=== PATIENT | male | born 1955 | race Caucasian/White ===

== ENCOUNTER 2016-07-03 14:45 | Emergency (ER) | payer OTHER ==
[~2016-07-03] VITALS: Ht 165.1 cm; Wt 89.0 kg
[~2016-07-03 14:45] MED LIST: COLACE; FINA5TAB4 PO; GABA300C16 PO; GLIP5TAB13 PO; JANUMET PO; LISI40TA9 PO; LOVA10TA63 PO; MELOXICAN; NAPROXEN PO; NORVASC PO; OMEP20CA16 PO; RANITIDINE; SENN8.6C3 PO; SITA1TAB7 PO; TIZA4TAB PO; TRAM-40 PO
[2016-07-03 14:48] VITALS: Ht 165.1 cm; Wt 89.0 kg
[2016-07-03] MEDS ORDERED: KETOROLAC 60 MG INJ IM STA (15:56)
[2016-07-03] MEDS ORDERED: HYDROCODONE/APAP (10/325) TAB PO ONE (16:00)
[2016-07-03 16:20] LABS: URINE BLOOD (Dip) POC Negative (NEGATIVE)
[2016-07-03] MEDS ORDERED: TRAM50TA2 PO (16:34)
[2016-07-03] MEDS ORDERED: DIAZ-90 PO (16:34)
--- NOTE | 2016-07-03 16:38 | ERA ---
ER Documentation Chief Complaint Date/Time DATE: 07/03/16 TIME: 16:36 Chief Complaint BACK PAIN, ON MEDS, TODAY FELT LEFT BUTTOCKS MASS? HPI This 60-year-old male complains of low back pain. He has a history of chronic low back pain but is no some swelling in the left lower back and buttock for the last few days. Denies any new trauma, urinary complaints or hematuria. Denies any fevers or weakness or bowel or bladder incontinence. ROS All systems reviewed and are negative except as per history of present illness. Medications Home Meds Active Scripts Tramadol HCl (Tramadol HCl) 50 Mg Tablet, 50 MG PO Q4 Y for PAIN, #20 TAB Prov:TEVIN BRAY MD 07/03/16 Diazepam* (Valium*) 5 Mg Tablet, 5 MG PO Q8, #15 TAB Prov:TEVIN BRAY MD 07/03/16 Reported Medications Tizanidine Hcl* (Tizanidine Hcl*) 4 Mg Tablet, 4 MG PO Q6H Y for SPASTICITY, TAB 01/22/16 [Meloxican] No Conflict Check 11/14/15 [Colace] No Conflict Check 11/14/15 [Ranitidine] No Conflict Check 11/14/15 [Naproxen] No Conflict Check, PO 11/14/15 [Janumet] No Conflict Check, PO 11/14/15 [Norvasc] No Conflict Check, PO 11/14/15 Sennosides* (Senna*) 8.6 Mg Capsule, 1 CAP PO BID, CAP 05/29/15 Tramadol Hcl* (Ultram*) 50 Mg Tablet, 50 MG PO BID Y for PAIN, TAB 05/29/15 Omeprazole* (Omeprazole*) 20 Mg Capsule.dr, 20 MG PO DAILY, CAP 03/19/14 Lovastatin* (Lovastatin*) 10 Mg Tablet, 10 MG PO HS, TAB 03/19/14 Gabapentin* (Gabapentin*) 300 Mg Capsule, 300 MG PO BID, CAP 03/19/14 Finasteride* (Finasteride*) 5 Mg Tablet, 5 MG PO DAILY, TAB 03/19/14 Sitagliptin Phos-Metformin Hcl (Janumet) 50-1,000 Mg Tablet, 1 TAB PO BID, TAB 03/19/14 Glipizide* (Glipizide*) 5 Mg Tablet, 5 MG PO BID, TAB 03/19/14 Lisinopril* (Lisinopril*) 40 Mg Tablet, 40 MG PO DAILY, TAB 03/19/14 Allergies Allergies: Coded Allergies: allopurinol (Verified Allergy, Unknown, ITCHING, NAUSEA, 01/22/16) PMhx/Soc History of Surgery: Yes Anesthesia Reaction: No Hx Neurological Disorder: No Hx Respiratory Disorders: No Hx Cardiac Disorders: Yes (HTN, HLP) Hx Psychiatric Problems: No Hx Miscellaneous Medical Probl: No Hx Alcohol Use: No Hx Substance Use: No Hx Tobacco Use: No Physical Exam Vitals Vital Signs Date Time Temp Pulse Resp B/P Pulse Ox O2 Delivery O2 Flow Rate FiO2 07/03/16 14:48 98.1 79 18 150/79 99 Physical Exam Const: [] Alert, [id number]. Head: Atraumatic Eyes: Normal Conjunctiva ENT: Normal External Ears, Nose and Mouth. Neck: Full range of motion..~ No meningismus. Resp: Clear to auscultation bilaterally Cardio: Regular rate and rhythm, no murmurs Abd: Soft, non tender, non distended. Normal bowel sounds Skin: No petechiae or rashes Back: No midline or flank tenderness but there is some tenderness extending from approximately L3 down to the left buttock with some mild swelling. There is no erythema or dominant masses. There is no fluctuance. There is no midline tenderness. Ext: No cyanosis, or edema Neur: Awake and alert Psych: Normal Mood and Affect Results 24 hrs Laboratory Tests Test 07/03/16 16:22 Bedside Urine Blood Negative Bedside Urine Glucose (UA) 0.25% Bedside Urine Ketones (LAB) Trace Bedside Urine Leukocyte Esterase (L Negative Bedside Urine Nitrite (LAB) Negative Bedside Urine Protein (LAB) 2+ Bedside Urine pH (LAB) 5.0 Current Medications Medications (Trade) Dose Ordered Sig/Hasmukh Route PRN Reason Start Time Stop Time Status Last Admin Dose Admin Ketorolac Tromethamine (Toradol) 60 mg ONCE STAT IM 07/03/16 15:56 07/03/16 15:57 DC 07/03/16 16:06 Acetaminophen/ Hydrocodone Bitart ([place] (10/325)) 1 tab ONCE ONCE PO 07/03/16 16:00 2/1/17 16:01 DC 07/03/16 16:05 Procedures/MDM Urine shows glucose but no hemoglobin leukocytes. Patient presents with signs and symptoms of an acute left lower back muscle spasm in the setting of chronic back pain. He was given Toradol 60 mg IM [place] 10 mg by mouth. Patient will be treated with tramadol and Valium instructions for back exercises at home. Patient was advised to return for weakness, fevers, vomiting, new or worsening symptoms or primary care doctor as directed. There is no evidence to suggest bacterial infection such as epidural abscess, aortic disease, acute abdomen, genitourinary etiology. Departure Diagnosis: Primary Impression: Back pain Qualified Code: M54.5 - Acute left-sided low back pain without sciatica Condition: Stable Patient Instructions: Back Exercises, Lumbar, Back Pain (Acute Or Chronic), Muscle Spasm Additional Instructions: Pain and swelling appear to be due to spasm. Recommend stretching at home and follow-up with primary doctor or for new or worsening symptoms TEVIN BRAY MD Jul 03, 2016 16:38
== END 2016-07-03 16:59 | disposition home or self-care (01) ==
LOC: FTE 14:45
DX: M54.5 Low back pain (principal); I10 Essential (primary) hypertension; E11.9 Type 2 diabetes mellitus without complications; Z79.84 Long term (current) use of oral hypoglycemic drugs
CPT/HCPCS: 81003; 96372; J1885; Z7502; Z7610

== ENCOUNTER 2016-10-15 05:10 | Day surgery (SDC) | payer OTHER ==
--- NOTE | 2016-10-14 20:55 | PREOPHP ---
DATE OF ADMISSION: 10/15/2016 HISTORY OF PRESENT ILLNESS: This 60-year-old patient is admitted for repositioning of an intraocula r lens or exchange of existing intraocular lens with an alternate lens implant. This patient previo usly underwent cataract surgery 3 years ago and despite satisfactory vision has been bothered by dis tortion of vision following the surgery. 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 The patient also has a history of proliferati ve diabetic retinopathy, previously treated with retinal laser therapy. Despite the above, the meryl ent continues to complain of distortion of vision in the left eye and wants to have improvement of v ision. The patient's systemic history is positive for hypertension, non-insulin dependent diabetes mellitus, neuropathies. CURRENT MEDICATIONS: Include: 1. Glipizide. 2. Metformin. 3. Lisinopril. 4. Amlodipine. 5. Onglyza. 6. Lovastatin. ALLERGIES: THERE ARE NO KNOWN ALLERGIES. PHYSICAL EXAMINATION: The visual acuity with best correction is finger counting in the right eye an d 20/400 in the left eye. Slit lamp examination reveals a posterior chamber intraocular lens in the left eye whose optic appears to be slightly tilted. It is placed anterior to the posterior capsule whose central zone has been compromised. Intraocular tension is 18 mmHg. Examination of the retin a in the left eye appears quiet with no evidence of macular edema or active lesion. DIAGNOSIS: Subluxated lens implant, left eye. PLAN: Repositioning of lens implant or exchange of lens implant, left eye. 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 The patient understands this and agrees to proceed with surgery. Dictated By: ANAMARIA BELLO/KAVITHA Conf#: [id number] DID#: [id number]
[~2016-10-15] VITALS: Ht 172.7 cm; Wt 95.2 kg
[~2016-10-15 05:10] MED LIST changes: +DIAZ-90 PO; +TRAM50TA2 PO
[2016-10-15] MEDS ORDERED: CYCLOPENTOLATE/PHENYLEPH 2 ML OPH OPER SCH (05:30)
[2016-10-15] MEDS ORDERED: CIPROFLOXACIN 0.3% 2.5 ML OPH OPER SCH (05:30)
[2016-10-15] MEDS ORDERED: DICLOFENAC 0.1% 2.5 ML OPH OPER SCH (05:30)
[2016-10-15] MEDS ORDERED: TROPICAMIDE 1% 2 ML OPH OPER SCH (05:30)
[2016-10-15 06:00] VITALS: BP 134/82; PULSE 61; RESP 18; Ht 172.7 cm; Wt 95.2 kg
[2016-10-15] MEDS ORDERED: AMLO-147 PO (06:18)
[2016-10-15] MEDS ORDERED: MELO7.5O PO (06:18)
[2016-10-15] MEDS ORDERED: RANI150T9 PO (06:18)
[2016-10-15] MEDS ORDERED: GENTAMICIN 80 MG INJ ONE (06:24)
[2016-10-15] MEDS ORDERED: LIDOCAINE 4% (MPF) 5 ML INJ ONE (06:24)
[2016-10-15] MEDS ORDERED: CARBACHOL 0.01% 1.5 ML OPH INJ ONE (06:24)
[2016-10-15] MEDS ORDERED: CEFAZOLIN 1 GM INJ ONE (06:24)
[2016-10-15] MEDS ORDERED: EPINEPHrine 1 MG INJ ONE (06:25)
[2016-10-15] MEDS ORDERED: HYALURONATE/CHONDROITIN 1ML OPH INJ ONE (06:25)
[2016-10-15] MEDS ORDERED: SITA1TAB5 PO (06:28)
[2016-10-15] MEDS ORDERED: DEXAMETHASONE 4 MG/ML 1 ML INJ ONE (07:10)
[2016-10-15] MEDS ORDERED: CARBACHOL 0.01% 1.5 ML OPH INJ IO ONE (07:25)
[2016-10-15] MEDS ORDERED: CEFAZOLIN 1 GM INJ INJ ONE (07:30)
[2016-10-15] MEDS ORDERED: HYALURONATE/CHONDROITIN 1ML OPH INJ IO ONE (07:30)
[2016-10-15] MEDS ORDERED: PROPOFOL 20 ML ONE (07:30)
[2016-10-15] MEDS ORDERED: DEXAMETHASONE 4 MG/ML 1 ML INJ INJ ONE (07:30)
[2016-10-15] MEDS ORDERED: MIDAZOLAM 1 MG/ML 2 ML INJ ONE (07:52)
[2016-10-15] MEDS ORDERED: ONDANSETRON 4 MG INJ IV PRN (08:00)
[2016-10-15 08:16] VITALS: BP 145/74; RESP 14
[2016-10-15 08:21] VITALS: BP 132/69; PULSE 62; RESP 13
[2016-10-15] MEDS: HYDROmorphONE (0.2 MG/ML) 10ML SYG IV PRN ×2 (08:24→08:29)
[2016-10-15 08:26] VITALS: BP 134/73; PULSE 68; RESP 19
[2016-10-15 08:31] VITALS: BP 134/71; PULSE 68; RESP 17
[2016-10-15 08:43] VITALS: BP 137/70; PULSE 65; RESP 18
[2016-10-15] MEDS ORDERED: FENTAnyl 50 MCG/ML VIAL ONE ×2 (08:54→09:18)
[2016-10-15] MEDS ORDERED: hydrALAzine 20 MG INJ ONE (09:32)
--- NOTE | 2016-10-15 10:53 | OPR ---
DATE OF OPERATION: 10/15/2016 PREOPERATIVE DIAGNOSIS: Subluxated lens implant, left eye. POSTOPERATIVE DIAGNOSIS: Subluxated lens implant, left eye. PROCEDURES: 1. Attempted reposition of posterior chamber intraocular lens, left eye. 2. Intraocular lens exchange for an anterior chamber intraocular lens, left eye. 3. Anterior vitrectomy, left eye. SURGEON: Anamaria Berry MD ANESTHESIOLOGIST: Eamon York DO DESCRIPTION OF PROCEDURE: The patient was brought to the operating room on an eye gurney. Positioned appropriately on the gurney and attached to electrocardiogram monitoring, given oxygen via nasal cannula. After intravenous sedation was administered, the patient received local anesthesia using lidocaine 4% given in lid block and retrobulbar injection. The patient was then prepped and draped in the usual sterile manner and a speculum was inserted between the lids of the left eye. Two paracentesis incisions were made in the 11 and 1 o'clock positions using a Superblade and some DisCoVisc was injected into the anterior chamber. An attempt was made using a Sinskey hook to rotate and reposition the intraocular lens so that the optic would be centered within the pupillary aperture. During this time, it was noted that the lens haptics had fibrosed to the capsular folds. Despite this, the lens was freed and, while attempting to reposition, it was noted that one of the haptics appeared to be kinked, not allowing it to expand to its full extent and explaining the reason why the lens had subluxated superiorly over the course of 3 years subsequent to the initial surgery. At this point, it was decided to remove the lens and replace it with an anterior chamber lens. A 3.0 mm keratome was used to enter the anterior chamber through clear cornea at the 12 o'clock position and then, using a curved blade, an outline was made in adjacent cornea both laterally and medially to extend the opening of the wound. Using curved corneal scissors, the wound was extended to approximately 7 mm. At this time, it was noted that there was some vitreous in the anterior chamber, which appeared to have come from the prior central capsulotomy at a time subsequent to the initial surgery. A limited anterior vitrectomy was performed using mechanical vitrectomy instrument until no formed vitreous was present in the anterior chamber or at the lips of the wound. Following this, the posterior chamber lens was explanted. After this had been completed and Miostat had constricted the pupil, Vannas scissors were used to create a peripheral iridectomy superiorly. Additional DisCoVisc was then injected into the anterior chamber as it was noted that there was some scleral collapse present superiorly. With the DisCoVisc, the chamber reformed appropriately. A lens glide was then placed across the surface of the iris to the inferior anterior chamber angle. A 19.5 diopter anterior chamber lens (Bausch and Lomb model L122UV) was then inserted anterior to the lens glide and the lens glide was removed. The trailing haptic was then tucked beneath the scleral shelf. Three interrupted 10-0 nylon sutures were placed across the wound and were tied with the ends cut short. Following this, additional DisCoVisc was injected into the anterior chamber and then, using a Sinskey hook, the lens was rotated so that the haptics were oriented in the horizontal meridian away from the wound. The haptics placed well, and there was no distortion to the round pupil after the lens had been rotated. Two additional 10-0 nylon sutures were placed; 1 of them was tied and the ends were cut short and then the DisCoVisc was from the anterior chamber. The final suture was then tied, the ends cut short and the knots of all the sutures were buried either on the corneal or on the scleral side of the wound. At the end of the procedure, it was noted that the wound was intact, the anterior chamber was deep, the lens implant appeared to be appropriately positioned, and the pupil was not distorted. The speculum was then removed and then 0.5 mL of Ancef and 0.5 mL of dexamethasone were injected into the sub- [place] space. Vigamox drops were placed on the surface of the eye and the eye was patched. The patient then left the operating room in satisfactory condition. Dictated By: ANAMARIA BELLO/KAVITHA Conf#: [id number] DID#: [id number] BALA
== END 2016-10-15 09:04 | disposition home or self-care (01) ==
LOC: SDS 05:10
PROVIDERS: ATTEND Ophthalmology
DX: H35.051 Retinal neovascularization, unspecified, right eye (principal); T85.22XA Displacement of intraocular lens, initial encounter; Y83.8 Other surgical procedures as the cause of abnormal reaction of the patient, or of later complication, without mention of misadventure at the time of the procedure; Y92.89 Other specified places as the place of occurrence of the external cause; E11.9 Type 2 diabetes mellitus without complications; I10 Essential (primary) hypertension; E78.5 Hyperlipidemia, unspecified; E66.9 Obesity, unspecified; Z68.31 Body mass index [BMI] 31.0-31.9, adult
CPT/HCPCS: 66986; 67005; 82962; J0171; J0690; J1100; J1170; J1580; J2250; V2630; Z7512; Z7610; J0360; J3010

== ENCOUNTER 2016-11-06 05:10 | Inpatient (IN) | payer OTHER ==
[2016-11-05 14:38] VITALS: BMI 31.7
[2016-11-06] VITALS (17 sets, daily range): BP systolic 118–174; BP diastolic 57–87; PULSE 63–88; RESP 12–20; Ht 172.7 cm; Wt 92.8 kg
[~2016-11-06] VITALS: Ht 172.7 cm; Wt 92.8 kg
[~2016-11-06 05:10] MED LIST changes: +AMLO-147 PO; -JANUMET PO; +MELO7.5O PO; -MELOXICAN; -NAPROXEN PO; -NORVASC PO; +RANI150T9 PO; -RANITIDINE; +SITA1TAB5 PO; -TRAM-40 PO
[2016-11-06] MEDS ORDERED: CEFAZOLIN 2 GM/50 ML (PMX) 50 ML IVPB ONE (06:00)
[2016-11-06] MEDS ORDERED: CPR3OO3.5 BOTH EYES (06:46)
[2016-11-06] MEDS ORDERED: [UNRECOGNIZED DRUG - CODE] BOTH EYES (06:46)
[2016-11-06] MEDS ORDERED: ALP2OP10 BOTH EYES (06:46)
[2016-11-06] MEDS ORDERED: DICL2.5D11 BOTH EYES (06:46)
[2016-11-06] MEDS ORDERED: CEFAZOLIN 1 GM INJ ONE ×2 (07:00→07:02)
[2016-11-06] MEDS ORDERED: ROCURONIUM 50 MG INJ ONE (07:00)
[2016-11-06] MEDS ORDERED: LIDOCAINE 2% (SDV) 5 ML INJ ONE (07:00)
[2016-11-06] MEDS ORDERED: FENTAnyl 250MCG INJ ONE (07:00)
[2016-11-06] MEDS ORDERED: HYDROmorphONE 2 MG/ML SYG ONE (07:00)
[2016-11-06] MEDS ORDERED: PROPOFOL 200 MG INJ ONE (07:00)
[2016-11-06] MEDS ORDERED: GELATIN SIZE 100 SPONGE ONE (07:02)
[2016-11-06] MEDS ORDERED: BUPIVACAINE 0.25% (MPF) 30 ML INJ ONE ×2 (07:02→10:48)
[2016-11-06] MEDS ORDERED: BUPIVACAINE 0.25%/EPI (SDV) 30 ML INJ ONE (07:02)
[2016-11-06] MEDS ORDERED: THROMBIN 5000 UNIT VIAL ONE (07:03)
[2016-11-06] MEDS ORDERED: CA CHLORIDE 10% 10 ML SYRINGE ONE (07:03)
--- NOTE | 2016-11-06 07:17 | HPN ---
Date/Time of Note Date/Time of Note DATE: 11/06/16 TIME: 07:17 Interval H&P Admission Note Pt. seen H&P reviewed: No system changes LÁZARO HUNTLEY MD Nov 06, 2016 07:17
[2016-11-06] MEDS ORDERED: HEPARIN 1000 UNITS/ML 10 ML INJ ONE ×2 (07:22→07:52)
[2016-11-06] MEDS ORDERED: NALOXONE (0.4 MG/ML) INJ IV PRN (07:30)
[2016-11-06] MEDS ORDERED: HYDROCODONE/APAP (5/325) TAB PO PRN (07:30)
[2016-11-06] MEDS ORDERED: HYDROmorphONE 1 MG/ML SYG IV PRN (07:30)
[2016-11-06] MEDS ORDERED: HYDROmorphONE 0.2 MG/ML PCA IV SCH (07:30)
[2016-11-06] MEDS ORDERED: ACETAMINOPHEN 325 MG TAB PO PRN (07:30)
[2016-11-06] MEDS ORDERED: CEPASTAT LOZENGE MT PRN (07:30)
[2016-11-06] MEDS ORDERED: MAGNESIUM HYDROXIDE 30ML CUP PO PRN (07:30)
[2016-11-06] MEDS ORDERED: PROCHLORPERAZINE 10 MG INJ IV PRN (07:30)
[2016-11-06] MEDS ORDERED: DIPHENHYDRAMINE 50 MG INJ IV PRN ×2 (07:30→12:00)
[2016-11-06] MEDS ORDERED: ONDANSETRON 4 MG INJ IV PRN ×2 (07:30→12:00)
[2016-11-06] MEDS ORDERED: GLUCAGON 1 MG INJ IM PRN (08:30)
[2016-11-06] MEDS ORDERED: DEXTROSE 50% 50 ML SYRINGE IV PRN ×2 (08:30)
[2016-11-06] MEDS ORDERED: GLUCOSE GEL 15 GRAM TUBE PO PRN ×2 (08:30)
[2016-11-06] MEDS ORDERED: GLUCOSE GEL 15 GRAM TUBE BUCCAL PRN (08:30)
[2016-11-06] MEDS ORDERED: PREDNISOLONE/SULFACETAMIDE 5 ML OPH BOTH EYES SCH ×2 (09:00→17:00)
[2016-11-06] MEDS ORDERED: GABAPENTIN 300 MG CAP PO SCH (09:00)
[2016-11-06] MEDS ORDERED: DOCUSATE SODIUM 100 MG CAP PO SCH (09:00)
[2016-11-06] MEDS ORDERED: LISINOPRIL 20 MG TAB PO SCH (09:00)
[2016-11-06] MEDS ORDERED: CEFAZOLIN 1 GM/50 ML (PMX) 50 ML IVPB SCH (09:00)
[2016-11-06] MEDS ORDERED: 1/2 NS + KCL 20 MEQ 1,000 ML IV SCH (09:00)
[2016-11-06] MEDS ORDERED: SENNA TAB PO SCH (09:00)
[2016-11-06] MEDS ORDERED: LINAGLIPTIN 5 MG TABLET PO SCH (09:00)
[2016-11-06] MEDS ORDERED: CIPROFLOXACIN 0.3% 3.5 GM OPH OINT BOTH EYES SCH ×2 (09:00→17:00)
[2016-11-06] MEDS ORDERED: FINASTERIDE 5 MG TAB PO SCH (09:00)
[2016-11-06] MEDS ORDERED: AMLODIPINE 10 MG TAB PO SCH (09:00)
[2016-11-06] MEDS ORDERED: BRIMONIDINE 0.2% 5 ML BTL BOTH EYES SCH ×2 (09:00→21:00)
[2016-11-06] MEDS ORDERED: FENTAnyl 50 MCG/ML VIAL ONE (10:35)
[2016-11-06] MEDS ORDERED: BUPIVACAINE 0.25%/EPI (SDV) 30 ML INJ INJ ONE (11:19)
[2016-11-06] MEDS ORDERED: BUPIVACAINE 0.25% (MPF) 30 ML INJ INJ ONE (11:20)
[2016-11-06] MEDS ORDERED: hydrALAzine 20 MG INJ IV PRN (12:00)
[2016-11-06] MEDS ORDERED: MEPERIDINE 25 MG INJ IV PRN (12:00)
[2016-11-06] MEDS ORDERED: INSULIN ASPART [NOVOLOG] 3 ML PEN SC ONE (12:00)
[2016-11-06] MEDS ORDERED: HYDROmorphONE (0.2 MG/ML) 10ML SYG IV PRN ×3 (12:00)
[2016-11-06] MEDS ORDERED: LABETALOL HCL 20MG INJ IV PRN (12:00)
[2016-11-06] MEDS ORDERED: FENTAnyl 50 MCG/ML VIAL IV PRN ×2 (12:00)
[2016-11-06] MEDS ORDERED: EPHEDrine SULFATE 50 MG/5 ML SYG IV PRN (12:00)
[2016-11-06] MEDS: FENTAnyl 50 MCG/ML VIAL IV PRN ×2 (12:04→12:19)
--- NOTE | 2016-11-06 13:18 | OPR ---
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 POSTOPERATIVE DIAGNOSIS: L5 to S1 spondylolysis with listhesis grade I with instability and lower e xtremity radiculopathy secondary to nerve root compression. PROCEDURE PERFORMED: 1. L5 to S1 placement of bilateral pedicle screws under minimally invasive fashion with biplanar fl uoroscopy. 2. Decompression above and beyond the need for fusion for the purpose of decompressing exiting and traversing nerve roots at the right L5 to S1 level with complete facetectomy. 3. Complete removal of disk within the L5 to S1 disk space. 4. Preparation of endplates. 5. Placement of interbody biomechanical device in the form of a Benvenue 13 mm lordotic cage. 6. Decompression of exiting L5 and traversing S1 nerve root. 7. Placement of bone graft within the disk space with the interbody cage. 8. Platelet rich plasma achieved from bone marrow aspiration. 9. Posterolateral bone grafting at the L5 to S1 levels bilaterally after high-speed bur decorticati on of the transverse processes. 10. Use of intraoperative fluoroscopy for localization and placement of instrumentation. 11. Use of intraoperative neuromonitoring for 4 hours during the entire surgical procedure with SSE Ps, MEPs and EMGs. 12. Use of intraoperative microscope for microdissection. 13. Placement of epidural catheter with injection of 4 mL of 0.25% Marcaine and 100 mcg of fentanyl for postoperative analgesia and removal of epidural catheter. 14. Placement of rods across the L5 to S1 pedicle screws and tightened down with a torque wrench. 15. Subcutaneous injection of 0.25% Marcaine for postop analgesia. 16. Use of Cell Saver intraoperatively for collection of blood. 17. Cosmetic wound closure of two 2 cm incisions. SURGEON: Anatoly Rainey MD DIET TECH: None. FINDINGS: At the start of surgical procedure, it was noted that the patient had nerve root signals with deficit at the left L5 down 70%, right L5 down 20%, left S1 down 30%, and returned back to norm al symmetric to contralateral side at the conclusion of the procedure. BLOOD USAGE: None. IMPLANTS: Benvenue Autumn cage 13 mm lordotic, OsteoSponge bone graft, RTI pedicle screws and Fibergr aft bone graft, [facility]. ESTIMATED BLOOD LOSS: 100 mL. DRAINS: None. SPECIMENS: L5 to S1 disk material. COMPLICATIONS: None. TYPE OF ANESTHESIA: General. ANESTHESIOLOGIST: Dr. Cabrales. PREOPERATIVE HISTORY: The patient is a 60-year-old male with a history of diabetes with significant findings of spondylolysis with listhesis at L5 to S1, grade I, with significant nerve root compress ion and bilateral lower extremity radiculopathy with disk space degeneration, consented for surgery as stated above secondary to failure of conservative management. The patient was indicated and disc ussed all risks, benefits and alternatives as well as pre- and postoperative rehabilitation protocol . The patient understood the plan and consented. OPERATION DETAIL: The patient brought to the operating room, placed under anesthesia by Dr. Samra pineda d given 2 grams of Ancef, turned prone onto the Rolando frame and all bony prominences were appropria tely padded. Lumbar spine prepped and draped in the usual sterile fashion. Biplanar fluoroscopy br ought into the field for placement of pedicle screw, in the technique of placing the Jamshidi needle , advancing the wire, tapping over the wire and then placing the screw over the wire and removing th e wire at the conclusion. This was done bilaterally; however, on the right side we stopped at the stage of placing the wires and placed the pedicle screws on the left side only measuring 6.5 x 40 at the S1 level and 6.5 x 45 at the L5 level and started with our focussing. This was all done under fluoroscopy, verified proper position and then focused our direction to placing the interbody cage. Through the right side where the wires were still placed, between those 2 wires we developed a kathryn edian incision into the level where the lamina of the L5 to S1 level, and then started with our pro cedure to remove the complete facetectomy and decompression of exiting L5 and traversing S1 nerve ro ots. We identified the exiting and traversing nerve roots and gently retracted to protect them and started with our complete diskectomy at the L5 to S1 level, sent off for pathology. We prepared the endplates and sized a 13 mm lordotic Autumn cage. This was then deployed into the disk space under f luoroscopy, verified proper position, then filled with Fibergraft bone graft and also stuffed latera lly with OsteoSponge. Once concluded, we placed the pedicle screws similar to the sizes on the contralateral side, and the n checked with neuromonitoring for pedicle screw stimulation, showing no impingement on any traversi ng nerve roots. Once concluded with the procedure placing the pedicle screws and interbody cage, we placed bilateral posterolateral bone graft after high-speed bur decortication of the transverse process. At the conclusion, copious irrigation was performed and an epidural catheter was inserted with epidu ral pain medication. The epidural pain medication included 4 mL of 0.25% Marcaine and 100 mcg of fe ntanyl and removed. NuShield was placed over the open thecal sac for barrier protection of scar tissue and adhesions. At the conclusion of procedure, all instruments, sponge counts, and needles were correct. The patie nt was closed with one #1 Vicryl, 2-0 Vicryl, and a 4-0 Monocryl for subcuticular closure with [place] paulino and a clean and dry dressing. The patient will be admitted for postop pain control, physical therapy, antibiotics, and discharged to a nursing facility when appropriate. Dictated By: ANATOLY GAGE/KAVITHA Conf#: [id number] DID#: [id number]
--- NOTE | 2016-11-06 13:26 | OPPN ---
Date/Time of Note Date/Time of Note DATE: 11/06/16 TIME: 13:26 Post-Anesthesia Notes Post-Anesthesia Note Last documented vital signs Vital Signs Date Time Temp Pulse Resp B/P Pulse Ox O2 Delivery O2 Flow Rate FiO2 11/06/16 12:31 98.0 80 12 162/76 96 Nasal Cannula 2.0 Activity: WNL Respiratory function: WNL Cardiovascular function: WNL Mental status: Baseline Pain reasonably controlled: Yes Hydration appropriate: Yes Nausea/Vomiting absent: Yes MARCY ENRIQUE Nov 06, 2016 13:26
[2016-11-06] MEDS ORDERED: CEFAZOLIN 1 GM/50 ML (PMX) 50 ML IVPB ONE (14:48)
[2016-11-06] MEDS: CEFAZOLIN 1 GM/50 ML (PMX) 50 ML IVPB SCH ×2 (15:17→23:50)
--- NOTE | 2016-11-06 15:44 | RADRPT ---
PROCEDURE: XR fluoro guidance CLINICAL INDICATION: Lumbar fusion, L5-S1 TECHNIQUE: Intraoperative fluoroscopy provided. 3 images submitted. Total fluoro time 35.3 secon ds COMPARISON: Lumbar spine radiographs 11/16/2014 FINDINGS: Instruments demonstrated at the L5, S1 level. See operative report for details. IMPRESSION: Fluoroscopic guidance for L5-S1 fusion. RPTAT: VV .Ulysses Arenas MD, Date Time Electronically viewed and signed by .Ulysses Arenas MD, on 11/06/2016 15:43 .O/
--- NOTE | 2016-11-06 15:46 | RADRPT ---
PROCEDURE: XR fluoro guidance CLINICAL INDICATION: Lumbar fusion, L5-S1 TECHNIQUE: Intraoperative fluoroscopy provided. 4 images submitted. Total fluoro time 94.8 secon ds COMPARISON: Lumbar spine radiographs 11/16/2014 FINDINGS: Lower lumbar anterior spondylosis, grade 1 anterolisthesis and disk space narrowing at L5-S1 noted. Interbody and posterior fusion hardware at L5-S1 placed. See operative report for details. IMPRESSION: Fluoroscopic guidance for L5-S1 fusion. RPTAT: VV .Ulysses Arenas MD, Date Time Electronically viewed and signed by .Ulysses Arenas MD, on 11/06/2016 15:45 .O/
[2016-11-06] MEDS: CYCLOBENZAPRINE 10 MG TAB PO PRN (16:00)
[2016-11-06 16:28] LABS: ADD SCAN DIFF NO
--- NOTE | 2016-11-06 16:29 | CONS ---
DATE OF ADMISSION: 11/06/2016 DATE OF CONSULTATION: 11/06/2016 REQUESTING PHYSICIAN: Surgery team. CHIEF COMPLAINT: A 60-year-old male who is status post lumbar decompression surgery earlier today. HISTORY OF PRESENT ILLNESS: This is a 60-year-old male with past medical history of type 2 diabetes , diabetic retinopathy, cataracts, carpal tunnel syndrome, low back pain, high cholesterol, hyperten amena who had lumbar decompression surgery earlier today. He had been complaining of low back pain f or the last few weeks apparently. He presently denies any upper or lower GI bleeding, no fevers or chills. No nausea, vomiting. He was taken to the OR, earlier today after being diagnosed with L5-L 1 spondylosis with listhesis grade I with instability and lower extremity radiculopathy secondary ne rve root compression. Again, he underwent a decompression surgery earlier today. Denies chest pain or shortness of breath presently. He does complain of some neck stiffness; however. PAST MEDICAL HISTORY: As stated above. ALLERGIES: ALLOPURINOL. MEDICATIONS AT HOME: Include 1. Amlodipine 10 mg daily. 2. Lisinopril 40 mg b.i.d. 3. Lovastatin 10 mg at bedtime. 4. Tizanidine 4 mg at bedtime. 5. Gabapentin 300 mg q.i.d. 6. Meloxicam 15 mg daily. 7. Tramadol 50 mg q.4 p.r.n. 8. Alphagan drops in both eyes b.i.d. 9. Cipro ophthalmic drops in both eyes q.i.d. 10. Prednisolone sulfacetamide drops in both eyes q.i.d. 11. Ranitidine 150 mg b.i.d. 12. Senna 1 capsule daily. 13. Glipizide 10 mg b.i.d. 14. Janumet 1 tab p.o. b.i.d. 15. Finasteride 5 mg daily. PAST SURGICAL HISTORY: In addition to the surgery, he has had appendectomy in the past. He has had cataract surgery in the past, he has had carpal tunnel surgery on both wrists. He has had knee stacy micki in the past. SOCIAL HISTORY: He occasionally smokes every few months. Occasional alcohol use. Denies any IV dr ug abuse. FAMILY HISTORY: Noncontributory. PHYSICAL EXAMINATION: VITAL SIGNS: T-max 98.2, pulse 78 to 84, respirations 12 to 14, blood pressure is to 140 to 162 sys tolic over 57 to 76 diastolic, saturating at 96% on 2 liters nasal cannula. GENERAL: The patient is lying in bed in recovery room, answering questions appropriately complains of neck pain. Otherwise, no acute distress. HEENT: Pupils equal, round, react to light. Extraocular muscles intact. NECK: Supple, no thyromegaly. LUNGS: Clear to auscultation bilaterally. CARDIOVASCULAR: S1, S2 heard. No rubs or gallops. ABDOMEN: Soft, nontender, nondistended. Normal bowel sounds. No rebound or guarding. MUSCULOSKELETAL: No lower extremity edema bilaterally. NEUROLOGIC: No focal deficits. LABORATORIES: There is no new CBC or basic metabolic panel from today. ASSESSMENT AND PLAN: A 60-year-old male status post lumbar decompression surgery with a prior histo ry of type 2 diabetes with diabetic retinopathy, hypertension, high cholesterol, and cataracts. 1. Low back pain status post lumbar decompression, again, follow up postop recommendations from the surgery team including pain control medications, physical therapy, laboratory work and medications. 2. Type 2 diabetes. We will order for hemoglobin A1c and add sliding scale insulin. 3. History of hypertension. Continue current medications as ordered by primary team. 4. History of high cholesterol. Again, consider checking lipid panel. 5. History of cataracts. Continue all ophthalmic drops as ordered by primary team. 6. History of carpal tunnel syndrome. Continue to monitor for now. We will continue to follow the patient along with you. Dictated By: ETIENNE BOWEN Conf#: [id number] DID#: [id number]
[2016-11-06 16:30] LABS: BASOPHIL # 0.1 10^3/ul (0.0-0.1); BASOPHILS % 0.4 % (0.0-2.0); EOSINOPHILS % 0.2 % (0.0-7.0); HEMATOCRIT 34.5 % (42.0-52.0); HEMOGLOBIN 11.5 g/dl (14.0-18.0); LYMPHOCYTES # 1.1 10^3/ul (0.8-2.9); LYMPHOCYTES % 8.6 % (15.0-51.0); MEAN CORPUSCULAR HEMOGLOBIN 30.7 pg (29.0-33.0); MEAN CORPUSCULAR HGB CONC 33.3 g/dl (32.0-37.0); MEAN CORPUSCULAR VOLUME 92.2 fl (82.0-101.0); MEAN PLATELET VOLUME 10.9 fl (7.4-10.4); MONOCYTE # 0.5 10^3/ul (0.3-0.9); MONOCYTES % 4.1 % (0.0-11.0); NEUTROPHIL # 11.2 10^3/ul (1.6-7.5); NEUTROPHILS % 86.2 % (39.0-77.0); PLATELET COUNT 222 10^3/UL (140-415); RED BLOOD COUNT 3.74 10^6/ul (4.70-6.10); RED CELL DISTRIBUTION WIDTH 12.7 % (11.5-14.5)
[2016-11-06 16:47] LABS: CHOL/HDL RATIO 3.2 RATIO
[2016-11-06 17:46] LABS: CALCIUM 8.6 mg/dl (8.4-10.2); CREATININE 1.25 mg/dl (0.61-1.24)
[2016-11-06 17:48] LABS: POTASSIUM 6.1 mmol/L (3.5-5.1)
[2016-11-06] MEDS ORDERED: glipiZIDE 5 MG TAB PO SCH (17:55)
[2016-11-06] MEDS: metFORMIN 500 MG TAB PO SCH ×2 (19:00→19:02)
[2016-11-06] MEDS: INSULIN ASPART [NOVOLOG] 3 ML PEN SC SCH ×2 (19:00→21:30)
[2016-11-06] MEDS: GABAPENTIN 300 MG CAP PO SCH ×2 (19:01→21:00)
[2016-11-06] MEDS: DOCUSATE SODIUM 100 MG CAP PO SCH (20:28)
[2016-11-06] MEDS: PREDNISOLONE/SULFACETAMIDE 5 ML OPH LEFT EYE SCH ×2 (21:00→22:43)
[2016-11-06] MEDS: CIPROFLOXACIN 0.3% 3.5 GM OPH OINT LEFT EYE SCH ×2 (21:00→22:46)
[2016-11-06] MEDS: BRIMONIDINE 0.2% 5 ML BTL LEFT EYE SCH ×2 (21:00→22:41)
[2016-11-06] MEDS: TIZANIDINE 4 MG TAB PO SCH ×2 (21:00→22:40)
[2016-11-06] MEDS: LISINOPRIL 20 MG TAB PO SCH (21:25)
[2016-11-06] MEDS: SOD CHLORIDE 0.9% 1,000 ML IV SCH (22:51)
[2016-11-07] MEDS: ACCU-CHEK XX SCH (02:00)
[2016-11-07] MEDS: PANTOPRAZOLE (EC) 40 MG TAB PO SCH (05:29)
[2016-11-07 05:30] LABS: ADD SCAN DIFF NO
[2016-11-07 05:57] LABS: BASOPHILS % 0.4 % (0.0-2.0); EOSINOPHILS # 0.1 10^3/ul (0.0-0.5); EOSINOPHILS % 1.1 % (0.0-7.0); HEMATOCRIT 33.5 % (42.0-52.0); HEMOGLOBIN 10.7 g/dl (14.0-18.0); LYMPHOCYTES # 1.7 10^3/ul (0.8-2.9); LYMPHOCYTES % 20.4 % (15.0-51.0); MEAN CORPUSCULAR HEMOGLOBIN 29.8 pg (29.0-33.0); MEAN CORPUSCULAR HGB CONC 31.9 g/dl (32.0-37.0); MEAN CORPUSCULAR VOLUME 93.3 fl (82.0-101.0); MEAN PLATELET VOLUME 11.4 fl (7.4-10.4); MONOCYTE # 0.5 10^3/ul (0.3-0.9); MONOCYTES % 6.1 % (0.0-11.0); NEUTROPHIL # 5.8 10^3/ul (1.6-7.5); NEUTROPHILS % 71.4 % (39.0-77.0); PLATELET COUNT 198 10^3/UL (140-415); RED BLOOD COUNT 3.59 10^6/ul (4.70-6.10); RED CELL DISTRIBUTION WIDTH 12.8 % (11.5-14.5); WHITE BLOOD COUNT 8.2 10^3/ul (4.8-10.8)
[2016-11-07 06:16] LABS: CALCIUM 8.6 mg/dl (8.4-10.2); CREATININE 1.03 mg/dl (0.61-1.24); MAGNESIUM 1.6 mg/dl (1.7-2.5); POTASSIUM 4.8 mmol/L (3.5-5.1)
[2016-11-07 09:00] VITALS: BP 164/70; RESP 20
[2016-11-07] MEDS: CEFAZOLIN 1 GM/50 ML (PMX) 50 ML IVPB SCH (09:00)
[2016-11-07] MEDS: SENNA TAB PO SCH (09:00)
[2016-11-07] MEDS: CIPROFLOXACIN 0.3% 3.5 GM OPH OINT LEFT EYE SCH ×4 (09:00→20:50)
[2016-11-07] MEDS: BRIMONIDINE 0.2% 5 ML BTL LEFT EYE SCH ×4 (09:01→20:49)
[2016-11-07] MEDS: DOCUSATE SODIUM 100 MG CAP PO SCH ×2 (09:01→20:49)
[2016-11-07] MEDS: PREDNISOLONE/SULFACETAMIDE 5 ML OPH LEFT EYE SCH ×4 (09:01→20:49)
[2016-11-07] MEDS: FINASTERIDE 5 MG TAB PO SCH (09:02)
[2016-11-07] MEDS: AMLODIPINE 10 MG TAB PO SCH (09:02)
[2016-11-07] MEDS: GABAPENTIN 300 MG CAP PO SCH ×4 (09:03→20:49)
[2016-11-07] MEDS: INSULIN ASPART [NOVOLOG] 3 ML PEN SC SCH ×4 (09:16→20:51)
[2016-11-07] MEDS: LISINOPRIL 20 MG TAB PO SCH ×2 (09:18→20:49)
[2016-11-07] MEDS: LINAGLIPTIN 5 MG TABLET PO SCH (09:20)
[2016-11-07] MEDS: HYDROCODONE/APAP (5/325) TAB PO PRN ×2 (09:22→17:42)
[2016-11-07] MEDS ORDERED: HYDROCODONE/APAP (5/325) TAB PO ONE (09:30)
[2016-11-07] MEDS: CYCLOBENZAPRINE 10 MG TAB PO PRN ×2 (11:30→20:48)
[2016-11-07] MEDS: SOD CHLORIDE 0.9% 1,000 ML IV SCH (12:20)
--- NOTE | 2016-11-07 12:27 | CONS ---
Date/Time of Note Date/Time of Note DATE: 11/07/16 TIME: 12:23 Consult Date/Type/Reason Admit Date/Time Nov 06, 2016 at 05:10 Initial Consult Date Subjective Pt off [employer] pump now. Evaluated by PT team. Objective Vital Signs Date Time Temp Pulse Resp B/P Pulse Ox O2 Delivery O2 Flow Rate FiO2 11/07/16 09:00 98.1 96 20 164/70 93 11/06/16 14:36 Nasal Cannula 2.0 Intake and Output 11/06/16 11/06/16 11/07/16 15:00 23:00 07:00 Intake Total 1200 ml 585 ml 1375 ml Output Total 150 ml 2200 ml Balance 1050 ml 585 ml -825 ml Exam GENERAL: The patient is lying in bed in recovery room, answering questions appropriately. . HEENT: Pupils equal, round, react to light. Extraocular muscles intact. NECK: Supple, no thyromegaly. LUNGS: Clear to auscultation bilaterally. CARDIOVASCULAR: S1, S2 heard. No rubs or gallops. ABDOMEN: Soft, nontender, nondistended. Normal bowel sounds. No rebound or guarding. MUSCULOSKELETAL: No lower extremity edema bilaterally. NEUROLOGIC: No focal deficits. Results/Medications Result Diagram: 11/07/16 0446 11/07/16 0446 Results 24 hrs Laboratory Tests Test 11/06/16 13:56 11/06/16 16:19 11/06/16 18:15 11/06/16 18:22 Bedside Glucose 174 230 H White Blood Count 13.0 H Red Blood Count 3.74 L Hemoglobin 11.5 L Hematocrit 34.5 L Mean Corpuscular Volume 92.2 Mean Corpuscular Hemoglobin 30.7 Mean Corpuscular Hemoglobin Concent 33.3 Red Cell Distribution Width 12.7 Platelet Count 222 Mean Platelet Volume 10.9 H Neutrophils % 86.2 H Lymphocytes % 8.6 L Monocytes % 4.1 Eosinophils % 0.2 Basophils % 0.4 Nucleated Red Blood Cells % 0.0 Neutrophils # 11.2 H Lymphocytes # 1.1 Monocytes # 0.5 Eosinophils # 0.0 Basophils # 0.1 Nucleated Red Blood Cells # 0.0 Sodium Level 138 Potassium Level 6.1 *H 5.3 H Chloride Level 105 Carbon Dioxide Level 26 Anion Gap 13 Blood Urea Nitrogen 16 Creatinine 1.25 H Glucose Level 215 Hemoglobin A1c 9.8 H Calcium Level 8.6 Triglycerides Level 110 Cholesterol Level 124 LDL Cholesterol, Calculated 64 HDL Cholesterol 38 Cholesterol/HDL Ratio 3.2 Test 11/06/16 21:24 11/07/16 02:57 11/07/16 04:46 11/07/16 09:08 Bedside Glucose 188 154 147 White Blood Count 8.2 # Red Blood Count 3.59 L Hemoglobin 10.7 L Hematocrit 33.5 L Mean Corpuscular Volume 93.3 Mean Corpuscular Hemoglobin 29.8 Mean Corpuscular Hemoglobin Concent 31.9 L Red Cell Distribution Width 12.8 Platelet Count 198 Mean Platelet Volume 11.4 H Neutrophils % 71.4 Lymphocytes % 20.4 Monocytes % 6.1 Eosinophils % 1.1 Basophils % 0.4 Nucleated Red Blood Cells % 0.0 Neutrophils # 5.8 Lymphocytes # 1.7 Monocytes # 0.5 Eosinophils # 0.1 Basophils # 0.0 Nucleated Red Blood Cells # 0.0 Sodium Level 139 Potassium Level 4.8 Chloride Level 105 Carbon Dioxide Level 30 Anion Gap 9 Blood Urea Nitrogen 14 Creatinine 1.03 Glucose Level 150 Calcium Level 8.6 Magnesium Level 1.6 L Test 11/07/16 11:49 Bedside Glucose 187 Medications Current Medications Acetaminophen/ Hydrocodone Bitart ([place] (5/325)) 1 tab Q4H PRN PO PAIN LEVEL 1 -5; Start 11/06/16 at 07:30 Acetaminophen/ Hydrocodone Bitart ([place] (5/325)) 2 tab Q4H PRN PO PAIN LEVEL 6 -10 Last administered on 11/07/16 09:22; Admin Dose 2 TAB; Start 11/06/16 at 07: 30 Hydromorphone HCl (Dilaudid) 0.2 mg Q3 PRN IV BREAKTHROUGH PAIN; Start 11/06/16 at 07:30; Status Future hold Ondansetron HCl (Zofran Inj) 4 mg Q6H PRN IV NAUSEA AND/OR VOMITING; Start 11/06 at 07:30 Prochlorperazine (Compazine Inj) 10 mg Q6H PRN IV NAUSEA AND/OR VOMITING; Start 11/06/16 at 07:30 Pantoprazole (Protonix Tab) 40 mg DAILY@06 PO Last administered on 11/07/16 05: 29; Admin Dose 40 MG; Start 11/07/16 at 06:00 Magnesium Hydroxide (Milk Of Mag) 30 ml HS PRN PO CONSTIPATION/DYSPEPSIA; Start 11/06/16 at 07:30 Acetaminophen (Tylenol Tab) 650 mg Q4H PRN PO BRIONES OR TEMP GREATER THAN 101.3F; Start 11/06/16 at 07:30 Cyclobenzaprine HCl (Flexeril) 5 mg TID PRN PO MUSCLE SPASMS Last administered on 11/07/16 11:30; Admin Dose 5 MG; Start 11/06/16 at 07:30 Phenol (Cepastat Lozenge) 1 lozenge PRN PRN MT SORE THROAT; Start 11/06/16 at 07 :30 Diphenhydramine HCl (Benadryl) 25 mg Q6H PRN IV ITCHING Last administered on 20:28; Admin Dose 25 MG; Start 11/06/16 at 07:30 Naloxone HCl (Narcan) 0.2 mg Q2M PRN IV RR 8 BREATHS/MIN OR LESS; Start at 07:30 Tizanidine HCl (Zanaflex) 4 mg QHS PO Last administered on 11/06/16 22:40; Admin Dose 4 MG; Start 11/06/16 at 21:00 Miscellaneous Information 1 ea NOTE XX ; Start 11/06/16 at 08:30 Glucose (Glutose) 15 gm Q15M PRN PO DECREASED GLUCOSE; Start 11/06/16 at 08:30 Glucose (Glutose) 22.5 gm Q15M PRN PO DECREASED GLUCOSE; Start 11/06/16 at 08:30 Dextrose (D50w Syringe) 25 ml Q15M PRN IV DECREASED GLUCOSE; Start 11/06/16 at 08:30 Dextrose (D50w Syringe) 50 ml Q15M PRN IV DECREASED GLUCOSE; Start 11/06/16 at 08:30 Glucagon (Glucagen) 1 mg Q15M PRN IM DECREASED GLUCOSE; Start 11/06/16 at 08:30 Glucose (Glutose) 15 gm Q15M PRN BUCCAL DECREASED GLUCOSE; Start 11/06/16 at 08: 30 Amlodipine Besylate (Norvasc) 10 mg DAILY PO Last administered on 11/07/16 09: 02; Admin Dose 10 MG; Start 11/07/16 at 09:00 Docusate Sodium (Colace) 100 mg BID PO Last administered on 11/07/16 09:01; Admin Dose 100 MG; Start 11/06/16 at 21:00 Finasteride (Proscar) 5 mg DAILY PO Last administered on 11/07/16 09:02; Admin Dose 5 MG; Start 11/07/16 at 09:00 Gabapentin (Neurontin) 300 mg QID PO Last administered on 11/07/16 09:03; Admin Dose 300 MG; Start 11/06/16 at 17:00 Linagliptin (Tradjenta) 5 mg DAILY PO Last administered on 11/07/16 09:20; Admin Dose 5 MG; Start 11/07/16 at 09:00 Lisinopril (Zestril) 40 mg BID PO Last administered on 11/07/16 09:18; Admin Dose 40 MG; Start 11/06/16 at 21:00 Senna (Senokot) 1 tab DAILY PO ; Start 11/07/16 at 09:00 Diagnostic Test (Pha) (Accu-Chek) 1 ea 02 XX Last administered on 11/07/16 02: 00; Admin Dose 1 EA; Start 11/07/16 at 02:00 Brimonidine Tartrate (Alphagan 0.2%) 1 drop QID LEFT EYE Last administered on 09:01; Admin Dose 1 DROP; Start 11/06/16 at 21:00 Ciprofloxacin HCl (Ciloxan 0.3% Oph Oint) 1 applic QID LEFT EYE Last administered on 11/07/16 09:00; Admin Dose 1 APPLIC; Start 11/06/16 at 21:00 Prednisolone/ Sulfacetamide 1 drop 1 drop QID LEFT EYE Last administered on 11/07 09:01; Admin Dose 1 DROP; Start 11/06/16 at 21:00 Sodium Chloride 1,000 ml @ 75 mls/hr [id number] IV Last administered on 11/06/16 22:51; Admin Dose 75 MLS/HR; Start 11/06/16 at 23:00 Magnesium Sulfate/ Dextrose (Magnesium Sulfate 1 Gm/D5W) 100 ml @ 100 mls/hr ONCE ONCE IVPB ; Start 11/07/16 at 12:30; Stop 11/07/16 at 13:29; Status UNV Assessment/Plan Chief Complaint/Hosp Course ASSESSMENT AND PLAN: 60-year-old male status post lumbar decompression surgery with a prior history of type 2 diabetes with diabetic retinopathy, hypertension , high cholesterol, and cataracts. 1. Low back pain - status post lumbar decompression POD # 1 - follow up postop recommendations from the surgery team including pain control medications, physical therapy, laboratory work and medications. 2. Type 2 diabetes - A1c = 9.8 - continue sliding scale insulin, PO DM meds 3. History of hypertension - high nL - Continue current medications as ordered by primary team. 4. History of high cholesterol - lipid panel appears nL - monitor 5. History of cataracts. Continue all ophthalmic drops as ordered by primary team. 6. History of carpal tunnel syndrome. Continue to monitor for now. We will continue to follow the patient along with you. Problems: ETIENNE LOPEZ Nov 07, 2016 12:27
[2016-11-07] MEDS ORDERED: MAGNESIUM SULFATE 1 GM/D5W 100 ML IVPB ONE (13:30)
--- NOTE | 2016-11-07 16:38 | PN ---
Date/Time of Note Date/Time of Note DATE: 11/07/16 TIME: 16:36 Assessment/Plan VTE Prophylaxis VTE Prophylaxis Intervention: ambulation, anti-embolic stocking VTE Contraindication Reason: bleeding Lines/Catheters IV Catheter Type (from Nrsg): Peripheral IV Central line still needed: No Urinary Cath still in place: No Assessment/Plan Chief Complaint/Hosp Course s/p lumbar fusion Problems: Assessment/Plan DC tomorrow with home health Pain well controlled with PO pain meds Ambulating Wound CDI Please provide a limited amount of DC pain meds until patient sees me in the office in 7-10 dats. D/W patient and Exam/Review of Systems Vital Signs Vitals Vital Signs Date Time Temp Pulse Resp B/P Pulse Ox O2 Delivery O2 Flow Rate FiO2 11/07/16 09:00 98.1 96 20 164/70 93 11/06/16 14:36 Nasal Cannula 2.0 Intake and Output 11/06/16 11/06/16 11/07/16 15:00 23:00 07:00 Intake Total 1200 ml 585 ml 1375 ml Output Total 150 ml 2200 ml Balance 1050 ml 585 ml -825 ml Results Result Diagram: 11/07/16 0446 11/07/16 0446 Results 24 hrs Laboratory Tests Test 11/06/16 18:15 11/06/16 18:22 11/06/16 21:24 11/07/16 02:57 Potassium Level 5.3 H Bedside Glucose 230 H 188 154 Test 11/07/16 04:46 11/07/16 09:08 11/07/16 11:49 White Blood Count 8.2 # Red Blood Count 3.59 L Hemoglobin 10.7 L Hematocrit 33.5 L Mean Corpuscular Volume 93.3 Mean Corpuscular Hemoglobin 29.8 Mean Corpuscular Hemoglobin Concent 31.9 L Red Cell Distribution Width 12.8 Platelet Count 198 Mean Platelet Volume 11.4 H Neutrophils % 71.4 Lymphocytes % 20.4 Monocytes % 6.1 Eosinophils % 1.1 Basophils % 0.4 Nucleated Red Blood Cells % 0.0 Neutrophils # 5.8 Lymphocytes # 1.7 Monocytes # 0.5 Eosinophils # 0.1 Basophils # 0.0 Nucleated Red Blood Cells # 0.0 Sodium Level 139 Potassium Level 4.8 Chloride Level 105 Carbon Dioxide Level 30 Anion Gap 9 Blood Urea Nitrogen 14 Creatinine 1.03 Glucose Level 150 Calcium Level 8.6 Magnesium Level 1.6 L Bedside Glucose 147 187 Medications Medications Current Medications Acetaminophen/ Hydrocodone Bitart ([place] (5/325)) 1 tab Q4H PRN PO PAIN LEVEL 1 -5; Start 11/06/16 at 07:30 Acetaminophen/ Hydrocodone Bitart ([place] (5/325)) 2 tab Q4H PRN PO PAIN LEVEL 6 -10 Last administered on 11/07/16 09:22; Admin Dose 2 TAB; Start 11/06/16 at 07: 30 Hydromorphone HCl (Dilaudid) 0.2 mg Q3 PRN IV BREAKTHROUGH PAIN; Start 11/06/16 at 07:30; Status Future hold Ondansetron HCl (Zofran Inj) 4 mg Q6H PRN IV NAUSEA AND/OR VOMITING; Start 11/06 at 07:30 Prochlorperazine (Compazine Inj) 10 mg Q6H PRN IV NAUSEA AND/OR VOMITING; Start 11/06/16 at 07:30 Pantoprazole (Protonix Tab) 40 mg DAILY@06 PO Last administered on 11/07/16 05: 29; Admin Dose 40 MG; Start 11/07/16 at 06:00 Magnesium Hydroxide (Milk Of Mag) 30 ml HS PRN PO CONSTIPATION/DYSPEPSIA; Start 11/06/16 at 07:30 Acetaminophen (Tylenol Tab) 650 mg Q4H PRN PO BRIONES OR TEMP GREATER THAN 101.3F; Start 11/06/16 at 07:30 Cyclobenzaprine HCl (Flexeril) 5 mg TID PRN PO MUSCLE SPASMS Last administered on 11/07/16 11:30; Admin Dose 5 MG; Start 11/06/16 at 07:30 Phenol (Cepastat Lozenge) 1 lozenge PRN PRN MT SORE THROAT; Start 11/06/16 at 07 :30 Diphenhydramine HCl (Benadryl) 25 mg Q6H PRN IV ITCHING Last administered on 20:28; Admin Dose 25 MG; Start 11/06/16 at 07:30 Naloxone HCl (Narcan) 0.2 mg Q2M PRN IV RR 8 BREATHS/MIN OR LESS; Start at 07:30 Tizanidine HCl (Zanaflex) 4 mg QHS PO Last administered on 11/06/16 22:40; Admin Dose 4 MG; Start 11/06/16 at 21:00 Miscellaneous Information 1 ea NOTE XX ; Start 11/06/16 at 08:30 Glucose (Glutose) 15 gm Q15M PRN PO DECREASED GLUCOSE; Start 11/06/16 at 08:30 Glucose (Glutose) 22.5 gm Q15M PRN PO DECREASED GLUCOSE; Start 11/06/16 at 08:30 Dextrose (D50w Syringe) 25 ml Q15M PRN IV DECREASED GLUCOSE; Start 11/06/16 at 08:30 Dextrose (D50w Syringe) 50 ml Q15M PRN IV DECREASED GLUCOSE; Start 11/06/16 at 08:30 Glucagon (Glucagen) 1 mg Q15M PRN IM DECREASED GLUCOSE; Start 11/06/16 at 08:30 Glucose (Glutose) 15 gm Q15M PRN BUCCAL DECREASED GLUCOSE; Start 11/06/16 at 08: 30 Amlodipine Besylate (Norvasc) 10 mg DAILY PO Last administered on 11/07/16 09: 02; Admin Dose 10 MG; Start 11/07/16 at 09:00 Docusate Sodium (Colace) 100 mg BID PO Last administered on 11/07/16 09:01; Admin Dose 100 MG; Start 11/06/16 at 21:00 Finasteride (Proscar) 5 mg DAILY PO Last administered on 11/07/16 09:02; Admin Dose 5 MG; Start 11/07/16 at 09:00 Gabapentin (Neurontin) 300 mg QID PO Last administered on 11/07/16 13:30; Admin Dose 300 MG; Start 11/06/16 at 17:00 Linagliptin (Tradjenta) 5 mg DAILY PO Last administered on 11/07/16 09:20; Admin Dose 5 MG; Start 11/07/16 at 09:00 Lisinopril (Zestril) 40 mg BID PO Last administered on 11/07/16 09:18; Admin Dose 40 MG; Start 11/06/16 at 21:00 Senna (Senokot) 1 tab DAILY PO ; Start 11/07/16 at 09:00 Diagnostic Test (Pha) (Accu-Chek) 1 ea 02 XX Last administered on 11/07/16 02: 00; Admin Dose 1 EA; Start 11/07/16 at 02:00 Brimonidine Tartrate (Alphagan 0.2%) 1 drop QID LEFT EYE Last administered on 13:17; Admin Dose 1 DROP; Start 11/06/16 at 21:00 Ciprofloxacin HCl (Ciloxan 0.3% Oph Oint) 1 applic QID LEFT EYE Last administered on 11/07/16 13:18; Admin Dose 1 APPLIC; Start 11/06/16 at 21:00 Prednisolone/ Sulfacetamide 1 drop 1 drop QID LEFT EYE Last administered on 11/07 13:17; Admin Dose 1 DROP; Start 11/06/16 at 21:00 Sodium Chloride (NS) 1,000 ml @ 75 mls/hr [id number] IV Last administered on 22:51; Admin Dose 75 MLS/HR; Start 11/06/16 at 23:00 LÁZARO HUNTLEY MD Nov 07, 2016 16:38
[2016-11-07] MEDS: metFORMIN 500 MG TAB PO SCH (17:42)
[2016-11-07 20:17] VITALS: BP 146/68; RESP 18
[2016-11-07] MEDS: TIZANIDINE 4 MG TAB PO SCH (20:49)
[2016-11-08] MEDS: SOD CHLORIDE 0.9% 1,000 ML IV SCH ×2 (01:40→15:00)
[2016-11-08] MEDS: ACCU-CHEK XX SCH (02:00)
[2016-11-08] MEDS: HYDROCODONE/APAP (5/325) TAB PO PRN ×2 (04:57→16:59)
[2016-11-08] MEDS: PANTOPRAZOLE (EC) 40 MG TAB PO SCH (06:02)
--- NOTE | 2016-11-08 08:01 | DS ---
Date/Time of Note Date/Time of Note DATE: 11/08/16 TIME: 07:58 Discharge Summary Admission/Discharge Info Admit Date/Time Nov 06, 2016 at 05:10 Discharge Date/Time November 08, 2016 Final Diagnosis s/p L5-S1 posterior fusion Consults Hospitalist Procedures Posterior instrumented L5-S1 fusion Hx of Present Illness 60 yo male with unstable L5-S1 spondylolysis with listhesis. Failed conservative management. Indicated for surgery as stated above Hospital Course s/p lumbar fusion Did well with PO pain meds and PT ambulation. Wound dressing CDI Home Meds Active Scripts Tramadol HCl (Tramadol HCl) 50 Mg Tablet, 50 MG PO Q4 Y for PAIN, #20 TAB Prov:TEVIN BRAY MD 07/03/16 Reported Medications Diclofenac Sodium* (Diclofenac Oph*) 2.5 Ml Drops, 1 DROP BOTH EYES QID, #1 EA 11/06/16 Prednisolone-Sulfacetamide* (Sulf-Pred* Ophth) 10-0.25% -10 Ml Drops, 1 DROP BOTH EYES QID, EA 11/06/16 Ciprofloxacin Opht* (Ciloxan*) 0.3%-3.5 Opht Oint, 1 APPLIC BOTH EYES QID, EA 11/06/16 Brimonidine Tartrate* (Alphagan*) 0.2%-10 Ml Opht Drops, 1 DROP BOTH EYES BID, BOTTLE 11/06/16 Meloxicam* (Meloxicam*) 7.5 Mg/5 Ml Oral.susp, 15 MG PO DAILY, #300 ML 10/15/16 Ranitidine Hcl* (Zantac*) 150 Mg Tablet, 150 MG PO BID, #60 TAB 10/15/16 Amlodipine Besylate* (Amlodipine Besylate*) 10 Mg Tablet, 10 MG PO DAILY, #30 TAB 10/15/16 Tizanidine Hcl* (Tizanidine Hcl*) 4 Mg Tablet, 4 MG PO QHS, TAB 01/22/16 [Colace] No Conflict Check 11/14/15 Sennosides* (Senna*) 8.6 Mg Capsule, 1 CAP PO DAILY, CAP 05/29/15 Lovastatin* (Lovastatin*) 10 Mg Tablet, 10 MG PO HS, TAB 03/19/14 Gabapentin* (Gabapentin*) 300 Mg Capsule, 300 MG PO QID, CAP 03/19/14 Finasteride* (Finasteride*) 5 Mg Tablet, 5 MG PO DAILY, TAB 03/19/14 Sitagliptin Phos-Metformin Hcl (Janumet) 50-1,000 Mg Tablet, 1 TAB PO BID, TAB 03/19/14 Glipizide* (Glipizide*) 5 Mg Tablet, 10 MG PO BID, TAB 03/19/14 Lisinopril* (Lisinopril*) 40 Mg Tablet, 40 MG PO BID, TAB 03/19/14 Discontinued Reported Medications Sitagliptin Phos/Metformin HCl (Janumet 50-1,000 mg Tablet) 1 Each Tablet, 1 EACH PO BID, TAB 10/15/16 Omeprazole* (Omeprazole*) 20 Mg Capsule.dr, 20 MG PO DAILY, CAP 03/19/14 Discontinued Scripts Diazepam* (Valium*) 5 Mg Tablet, 5 MG PO Q8, #15 TAB Prov:TEVIN BRAY MD 07/03/16 Follow-up Plan Call for appt Pain meds at home, but ask hospitalist to provide a small course Primary Care Provider Simone Kim Time spent on discharge: > 30 minutes Pending Labs Laboratory Tests Test 11/07/16 09:08 11/07/16 11:49 11/07/16 17:40 11/07/16 20:47 Bedside Glucose 147mg/dL (70-220) 187mg/dL (70-220) 201mg/dL (70-220) 287mg/dL (70-220) Test 11/08/16 07:01 Lab Scanned Report REFERENCE [id number] LÁZARO HUNTLEY MD Nov 08, 2016 08:01
--- NOTE | 2016-11-08 08:05 | PDOCDIS ---
Discharge Instructions CONDITION Patient Condition: Good HOME CARE INSTRUCTIONS: Diet Instructions: Low Fat /Cholesterol ACTIVITY: Activity Restrictions: Avoid heavy lifting Do not Drive Do not operate Machinery Avoid Heavy Housework Bathing Restrictions: Shower FOLLOW UP/APPOINTMENTS Appointments November 15 LÁZARO HUNTLEY MD Nov 08, 2016 08:05
[2016-11-08 08:31] VITALS: BP 114/64; RESP 18
[2016-11-08] MEDS: metFORMIN 500 MG TAB PO SCH (09:01)
[2016-11-08] MEDS: DOCUSATE SODIUM 100 MG CAP PO SCH (09:01)
[2016-11-08] MEDS: GABAPENTIN 300 MG CAP PO SCH ×3 (09:01→17:00)
[2016-11-08] MEDS: SENNA TAB PO SCH (09:01)
[2016-11-08] MEDS: AMLODIPINE 10 MG TAB PO SCH (09:02)
[2016-11-08] MEDS: LISINOPRIL 20 MG TAB PO SCH (09:03)
[2016-11-08] MEDS: LINAGLIPTIN 5 MG TABLET PO SCH (09:03)
[2016-11-08] MEDS: FINASTERIDE 5 MG TAB PO SCH (09:03)
[2016-11-08] MEDS: BRIMONIDINE 0.2% 5 ML BTL LEFT EYE SCH ×3 (09:04→16:59)
[2016-11-08] MEDS: CIPROFLOXACIN 0.3% 3.5 GM OPH OINT LEFT EYE SCH ×3 (09:04→17:00)
[2016-11-08] MEDS: PREDNISOLONE/SULFACETAMIDE 5 ML OPH LEFT EYE SCH ×3 (09:05→16:59)
[2016-11-08] MEDS: INSULIN ASPART [NOVOLOG] 3 ML PEN SC SCH ×2 (09:20→12:36)
--- NOTE | 2016-11-08 14:45 | CONS ---
Date/Time of Note Date/Time of Note DATE: 11/08/16 TIME: 14:43 Consult Date/Type/Reason Admit Date/Time Nov 06, 2016 at 05:10 Subjective No acute events overnight. Objective Vital Signs Date Time Temp Pulse Resp B/P Pulse Ox O2 Delivery O2 Flow Rate FiO2 11/08/16 08:31 98.6 94 18 114/64 95 11/06/16 14:36 Nasal Cannula 2.0 Intake and Output 11/07/16 11/07/16 11/08/16 15:00 23:00 07:00 Intake Total 200 ml 1000 ml 1000 ml Output Total 1500 ml Balance 200 ml -500 ml 1000 ml Exam GENERAL: The patient is lying in bed in recovery room, answering questions appropriately. . HEENT: Pupils equal, round, react to light. Extraocular muscles intact. NECK: Supple, no thyromegaly. LUNGS: Clear to auscultation bilaterally. CARDIOVASCULAR: S1, S2 heard. No rubs or gallops. ABDOMEN: Soft, nontender, nondistended. Normal bowel sounds. No rebound or guarding. MUSCULOSKELETAL: No lower extremity edema bilaterally. NEUROLOGIC: No focal deficits. Results/Medications Result Diagram: 11/07/16 0446 11/07/16 0446 Results 24 hrs Laboratory Tests Test 11/07/16 17:40 11/07/16 20:47 11/08/16 07:01 11/08/16 09:00 Bedside Glucose 201 287 H 170 Lab Scanned Report REFERENCE LAB Test 11/08/16 12:31 Bedside Glucose 230 H Medications Current Medications Acetaminophen/ Hydrocodone Bitart ([place] (5/325)) 1 tab Q4H PRN PO PAIN LEVEL 1 -5; Start 11/06/16 at 07:30 Acetaminophen/ Hydrocodone Bitart ([place] (5/325)) 2 tab Q4H PRN PO PAIN LEVEL 6 -10 Last administered on 11/08/16t 04:57; Admin Dose 2 TAB; Start 11/06/16 at 07: 30 Hydromorphone HCl (Dilaudid) 0.2 mg Q3 PRN IV BREAKTHROUGH PAIN; Start 11/06/16 at 07:30; Status Future hold Ondansetron HCl (Zofran Inj) 4 mg Q6H PRN IV NAUSEA AND/OR VOMITING; Start 11/06 at 07:30 Prochlorperazine (Compazine Inj) 10 mg Q6H PRN IV NAUSEA AND/OR VOMITING; Start 11/06/16 at 07:30 Pantoprazole (Protonix Tab) 40 mg DAILY@06 PO Last administered on 11/08/16 06: 02; Admin Dose 40 MG; Start 11/07/16 at 06:00 Magnesium Hydroxide (Milk Of Mag) 30 ml HS PRN PO CONSTIPATION/DYSPEPSIA; Start 11/06/16 at 07:30 Acetaminophen (Tylenol Tab) 650 mg Q4H PRN PO BRIONES OR TEMP GREATER THAN 101.3F; Start 11/06/16 at 07:30 Cyclobenzaprine HCl (Flexeril) 5 mg TID PRN PO MUSCLE SPASMS Last administered on 11/07/16 20:48; Admin Dose 5 MG; Start 11/06/16 at 07:30 Phenol (Cepastat Lozenge) 1 lozenge PRN PRN MT SORE THROAT; Start 11/06/16 at 07 :30 Diphenhydramine HCl (Benadryl) 25 mg Q6H PRN IV ITCHING Last administered on 20:28; Admin Dose 25 MG; Start 11/06/16 at 07:30 Naloxone HCl (Narcan) 0.2 mg Q2M PRN IV RR 8 BREATHS/MIN OR LESS; Start at 07:30 Tizanidine HCl (Zanaflex) 4 mg QHS PO Last administered on 11/07/16 20:49; Admin Dose 4 MG; Start 11/06/16 at 21:00 Miscellaneous Information 1 ea NOTE XX ; Start 11/06/16 at 08:30 Glucose (Glutose) 15 gm Q15M PRN PO DECREASED GLUCOSE; Start 11/06/16 at 08:30 Glucose (Glutose) 22.5 gm Q15M PRN PO DECREASED GLUCOSE; Start 11/06/16 at 08:30 Dextrose (D50w Syringe) 25 ml Q15M PRN IV DECREASED GLUCOSE; Start 11/06/16 at 08:30 Dextrose (D50w Syringe) 50 ml Q15M PRN IV DECREASED GLUCOSE; Start 11/06/16 at 08:30 Glucagon (Glucagen) 1 mg Q15M PRN IM DECREASED GLUCOSE; Start 11/06/16 at 08:30 Glucose (Glutose) 15 gm Q15M PRN BUCCAL DECREASED GLUCOSE; Start 11/06/16 at 08: 30 Amlodipine Besylate (Norvasc) 10 mg DAILY PO Last administered on 11/08/16 09: 02; Admin Dose 10 MG; Start 11/07/16 at 09:00 Docusate Sodium (Colace) 100 mg BID PO Last administered on 11/08/16 09:01; Admin Dose 100 MG; Start 11/06/16 at 21:00 Finasteride (Proscar) 5 mg DAILY PO Last administered on 11/08/16 09:03; Admin Dose 5 MG; Start 11/07/16 at 09:00 Gabapentin (Neurontin) 300 mg QID PO Last administered on 11/08/16 09:01; Admin Dose 300 MG; Start 11/06/16 at 17:00 Linagliptin (Tradjenta) 5 mg DAILY PO Last administered on 11/08/16 09:03; Admin Dose 5 MG; Start 11/07/16 at 09:00 Lisinopril (Zestril) 40 mg BID PO Last administered on 11/08/16 09:03; Admin Dose 40 MG; Start 11/06/16 at 21:00 Senna (Senokot) 1 tab DAILY PO Last administered on 11/08/16 09:01; Admin Dose 1 TAB; Start 11/07/16 at 09:00 Diagnostic Test (Pha) (Accu-Chek) 1 ea 02 XX Last administered on 11/07/16 02: 00; Admin Dose 1 EA; Start 11/07/16 at 02:00 Brimonidine Tartrate (Alphagan 0.2%) 1 drop QID LEFT EYE Last administered on 13:24; Admin Dose 1 DROP; Start 11/06/16 at 21:00 Ciprofloxacin HCl (Ciloxan 0.3% Oph Oint) 1 applic QID LEFT EYE Last administered on 11/08/16 09:04; Admin Dose 1 APPLIC; Start 11/06/16 at 21:00 Prednisolone/ Sulfacetamide 1 drop 1 drop QID LEFT EYE Last administered on 11/08 13:24; Admin Dose 1 DROP; Start 11/06/16 at 21:00 Sodium Chloride (NS) 1,000 ml @ 75 mls/hr [id number] IV Last administered on t 22:51; Admin Dose 75 MLS/HR; Start 11/06/16 at 23:00 Assessment/Plan Chief Complaint/Hosp Course ASSESSMENT AND PLAN: 60-year-old male status post lumbar decompression surgery with a prior history of type 2 diabetes with diabetic retinopathy, hypertension , high cholesterol, and cataracts. 1. Low back pain - status post lumbar decompression POD # 2 - follow up postop recommendations from the surgery team including pain control medications, physical therapy, laboratory work and medications. 2. Type 2 diabetes - A1c = 9.8 - continue sliding scale insulin, PO DM meds, f/u DM educator rec's (likely will need sub Q insulin at home) 3. History of hypertension - high nL - Continue current medications as ordered by primary team. 4. History of high cholesterol - lipid panel appears nL - monitor 5. History of cataracts. Continue all ophthalmic drops as ordered by primary team. 6. History of carpal tunnel syndrome. Continue to monitor for now. D/C planning in progress ordered by primary team. Problems: ETIENNE LOPEZ. Nov 08, 2016 14:45
== END 2016-11-08 17:16 | disposition home or self-care (01) | DRG 460 ==
LOC: REC 05:10 → MS1 16:55
PROVIDERS: ADMIT Orthopaedic Surgery Orthopaedic Surgery of the Spine; ATTEND Orthopaedic Surgery Orthopaedic Surgery of the Spine
PROC: 0ST40ZZ Resection of Lumbosacral Disc, Open Approach (ICD-10-PCS; 2016-11-06)
PROC: 4A11X4G Monitoring of Peripheral Nervous Electrical Activity, Intraoperative, External Approach (ICD-10-PCS; 2016-11-06)
PROC: 0SG30A1 (ICD-10-PCS; principal; 2016-11-06 07:30)
DX: M43.17 Spondylolisthesis, lumbosacral region (principal); E11.319 Type 2 diabetes mellitus with unspecified diabetic retinopathy without macular edema; I10 Essential (primary) hypertension; M43.07 Spondylolysis, lumbosacral region; M51.17 Intervertebral disc disorders with radiculopathy, lumbosacral region; E66.9 Obesity, unspecified; Z68.31 Body mass index [BMI] 31.0-31.9, adult
CPT/HCPCS: 72100; 80048; 80061; 82962; 83036; 83735; 84132; 85025; 86850; 86900; 86901; 86920; 86999; 88304; 97116; 97162; 97167; 97530; C1713; J0690; J1170; J1200; J1644; J1815; J2175; J2405; J3010; J3475; J3480; J7030; V2790

== ENCOUNTER → 2017-05-21 | Outpatient (CLI) | END | disposition home or self-care (01) ==

== ENCOUNTER 2017-07-06 08:35 | Emergency (ER) | END 2017-07-06 11:04 | disposition home or self-care (01) ==

== ENCOUNTER 2017-12-04 13:53 | Emergency (ER) | END 2017-12-04 17:55 | disposition home or self-care (01) ==

== ENCOUNTER 2017-12-07 13:48 | Emergency (ER) | END 2017-12-07 16:28 | disposition home or self-care (01) ==

== ENCOUNTER 2018-01-23 11:29 | Day surgery (SDC) | END 2018-01-23 16:35 | disposition home or self-care (01) ==

== ENCOUNTER 2018-02-19 12:34 | Day surgery (SDC) | END 2018-02-19 17:14 | disposition home or self-care (01) ==

== ENCOUNTER 2018-03-30 14:56 | Emergency (ER) | END 2018-03-30 21:25 | disposition home or self-care (01) ==

== ENCOUNTER 2018-04-02 11:01 | Inpatient (IN) | END 2018-04-03 12:20 | disposition home or self-care (01) | DRG 103 ==

== ENCOUNTER 2018-04-09 08:54 | Day surgery (SDC) | END 2018-04-09 14:22 | disposition home or self-care (01) ==

== ENCOUNTER 2018-08-26 12:43 | Emergency (ER) | payer MEDICARE, MEDICAID ==
[~2018-08-26] VITALS: Ht 170.2 cm; Wt 93.7 kg
[~2018-08-26 12:43] MED LIST changes: +ALFU10TA2 PO; -COLACE; +CYCL10TA7 PO; -DIAZ-90 PO; +DOCU-144 PO; +FER325 PO; +GLIP10TA14 PO; -GLIP5TAB13 PO; +HYDR-4011 PO; +LISI40TA3 PO; -LISI40TA9 PO; -MELO7.5O PO; -OMEP20CA16 PO; +PANT40TA4 PO; -RANI150T9 PO; +SENN-120 PO; -SENN8.6C3 PO; -SITA1TAB7 PO; -TIZA4TAB PO; -TRAM50TA2 PO; +UDMYL PO
[2018-08-26 12:46] VITALS: BP 165/79; PULSE 90; RESP 20; Ht 170.2 cm; Wt 93.7 kg
[2018-08-26] MEDS ORDERED: IBUPROFEN 800 MG TAB PO ONE (14:30)
[2018-08-26] MEDS ORDERED: ACETAMINOPHEN 500 MG TAB PO STA (14:30)
[2018-08-26] MEDS ORDERED: D-ME473S2 PO (15:13)
[2018-08-26] MEDS ORDERED: AZIT250T PO (15:13)
[2018-08-26] MEDS ORDERED: BENZ-6 PO (15:13)
--- NOTE | 2018-08-26 15:46 | ERD ---
ER Documentation Chief Complaint Chief Complaint cough, fever x 4 days - had flu shot per pt HPI 62 yr old male complaining of fever x 4 days. Has a productive cough. Has tactile fevers at home. Has a runny nose. Took Tylenol this morning. Denies any chest pain or shortness of breath. Medical history is diabetes hypertension. Allergy to allopurinol. Surgical history orthopedic surgery. Social history denies ROS All systems reviewed and are negative except as per history of present illness. Medications Home Meds Active Scripts Benzonatate* (Tessalon Perle*) 100 Mg Capsule, 100 MG PO Q8H PRN for COUGH, #30 CAP Prov:LINDA ESTRADA PA-C 08/26/18 Azithromycin* (Zithromax*) 250 Mg Tablet, 250 MG PO .ZPACK DIRECTED, #6 TAB TAKE 500 MG (2 TABS) THE FIRST DAY THEN 250 MG (1 TAB) DAYS 2-5 Prov:LINDA ESTRADA PA-C 08/26/18 Dextromethorphan Hb-Promethazine Hcl* (Promethazine DM* Syrup) 473 Ml Syrup, 5 ML PO Q6 PRN for COUGH, #100 ML Prov:LINDA ESTRADA PA-C 08/26/18 Reported Medications Cyclobenzaprine Hcl* (Cyclobenzaprine Hcl*) 10 Mg Tablet, 10 MG PO DAILY, #60 TAB 03/30/18 Sitagliptin Phos/Metformin HCl (Janumet 50-1,000 mg Tablet) 1 Each Tablet, 1 EACH PO BID, TAB 03/30/18 Sennosides* (Senna Lax*) 8.6 Mg Tablet, 1 TAB PO DAILY, TAB 03/30/18 Pantoprazole* (Pantoprazole*) 40 Mg Tablet.dr, 40 MG PO AC BREAKFAST, TAB 03/30/18 Magaldrate/Simethicone* (Mag-Al Plus Suspension*) 30 Ml Oral.susp, 30 ML PO NEEDED, ML 03/30/18 Lovastatin* (Lovastatin*) 10 Mg Tablet, 10 MG PO HS, TAB 03/30/18 Lisinopril* (Lisinopril*) 40 Mg Tablet, 40 MG PO BID, #30 TAB 03/30/18 Hydrocodone/Acetaminophen ([place] 5-325 Tablet) 1 Each Tablet, 1 EACH PO BID, TAB 03/30/18 Glipizide* (Glipizide*) 10 Mg Tablet, 10 MG PO AC BREAKFAST DINNER, TAB 03/30/18 Gabapentin* (Gabapentin*) 300 Mg Capsule, 300 MG PO TID, #90 CAP 03/30/18 Finasteride* (Finasteride*) 5 Mg Tablet, 5 MG PO DAILY, TAB 03/30/18 Ferrous Sulfate* (Ferrous Sulfate*) 325 Mg Tabec, 325 MG PO TID, TAB 03/30/18 Docusate Sodium* (Colace*) 100 Mg Capsule, 100 MG PO Q24H PRN for CONSTIPATION, #30 CAP 03/30/18 Alfuzosin Hcl* (Alfuzosin Hcl*) 10 Mg Tab.er.24h, 10 MG PO DAILY, #30 TAB.SA 03/30/18 Amlodipine Besylate* (Amlodipine Besylate*) 10 Mg Tablet, 10 MG PO DAILY, #30 TAB 03/30/18 Allergies Allergies: Coded Allergies: allopurinol (Verified Allergy, Unknown, ITCHING, NAUSEA, 08/26/18) PMhx/Soc History of Surgery: Yes (BACK SX,LT KNEE SX, APPEN. PAT CARPAL TUNNEL,CRANIOTOMY,TONSOLLECTOMY,COLON) Anesthesia Reaction: No Hx Neurological Disorder: No Hx Respiratory Disorders: No Hx Cardiac Disorders: Yes (HIGH CHOLESTEROL; HTN) Hx Psychiatric Problems: No Hx Miscellaneous Medical Probl: Yes (GOUT; DM) Hx Alcohol Use: No Hx Substance Use: No Hx Tobacco Use: No FmHx Family History: No diabetes, No coronary disease, No other Physical Exam Vitals Vital Signs Date Temp Pulse Resp B/P (MAP) Pulse Ox O2 O2 Flow FiO2 Time Delivery Rate 08/26/18 97.8 90 20 165/79 98 12:46 (107) Physical Exam GENERAL: The patient is well-appearing, well-nourished, in no acute distress HEENT: Atraumatic. Conjunctivae are pink. Pupils equal, round, and reactive to light. There is no scleral icterus. Tympanic membranes clear bilaterally. Oropharynx clear. NECK: C-spine is soft and supple. There is no meningismus. There is no cervical lymphadenopathy. CHEST: Clear to auscultation bilaterally. There are no rales, wheezes or rhonchi. HEART: Regular rate and rhythm. No murmurs, clicks, rubs or gallops. Results 24 hrs Current Medications Medications Dose Sig/Hasmukh Start Time Status Last (Trade) Ordered Route PRN Stop Time Admin Dose Reason Admin Ibuprofen 800 mg ONCE ONCE 08/26/18 DC 08/26/18 (Motrin) PO 14:30 14:41 08/26/18 14:32 1,000 mg ONCE STAT 08/26/18 DC 08/26/18 Acetaminophen PO 14:30 14:41 (Tylenol 08/26/18 14:32 Tab) Procedures/MDM DIAGNOSTIC IMAGING REPORT Patient: NILDA BARNHART : 1955 Age: 62 Sex: M MR #: [id number] DOS: 08/26/18 1430 Ordering MD: MANE ESTRADA PA-C Location: [facility] Room/Bed: PROCEDURE: XR Chest. CLINICAL INDICATION: Chest pain TECHNIQUE: Single portable view of the chest was obtained COMPARISON: CR CHEST 07/24/2014 FINDINGS: The heart is enlarged. There is mild elevation of the right diaphragm. The lungs are clear. There is no pleural effusion or pneumothorax. RPTAT: AA IMPRESSION: Moderate Cardiomegaly. Mild elevation of the right diaphragm. MDM: 62-year-old male presenting with cough. Patient has congestion heard on auscultation so I will treat with antibiotics. Chest x-ray is within normal limits. I have low suspicion for respiratory distress or hypoxia. Patient is discharged with stricter precautions and told to follow-up with primary care within 1-2 days for close evaluation. Patient is told if symptoms change or wor sen to return to ER immediately. All questions answered at discharge Departure Diagnosis: Primary Impression: Cough Condition: Stable Patient Instructions: Cough, Chronic, Uncertain Cause, (Adult) Referrals: WILL BARNETT (PCP) Additional Instructions: FOLLOW UP WITH YOUR PRIMARY CARE PHYSICIAN TOMORROW.Return to this facility if you are not improving as expected. LINDA ESTRADA PA-C Aug 26, 2018 15:46
== END 2018-08-26 15:25 | disposition home or self-care (01) ==
LOC: FTE 12:43
DX: R05 Cough (principal); I10 Essential (primary) hypertension; E11.9 Type 2 diabetes mellitus without complications; Z79.84 Long term (current) use of oral hypoglycemic drugs
CPT/HCPCS: 71045; 87400

== ENCOUNTER 2018-09-01 15:59 | Observation (INO) | payer MEDICARE, MEDICAID ==
[~2018-09-01] VITALS: Ht 185.4 cm; Wt 95.5 kg
[~2018-09-01 15:59] MED LIST changes: +AZIT250T PO; +BENZ-6 PO; +D-ME473S2 PO
--- NOTE | 2018-09-01 16:31 | ERD ---
ER Documentation Chief Complaint Chief Complaint CHEST PAIN, SENT BY PCP FOR ABNORMAL EKG TODAY HPI This is a 62-year-old man with a history of hypertension, diabetes mellitus, hyperlipidemia presenting with sharp nonexertional nonradiating chest pain for about 1 week. Last week he was diagnosed with upper respiratory tract infection for cough and chest congestion, he was prescribed azithromycin and finished his course of antibiotic. Patient had an abnormal EKG in his PMDs office today and was referred here for reevaluation and admission. Patient denies calf or leg swelling, no fevers or chills, no vomiting or diarrhea. ROS All systems reviewed and are negative except as per history of present illness. Medications Home Meds Active Scripts Benzonatate* (Tessalon Perle*) 100 Mg Capsule, 100 MG PO Q8H PRN for COUGH, #30 CAP Prov:LINDA ESTRADA PA-C 08/26/18 Azithromycin* (Zithromax*) 250 Mg Tablet, 250 MG PO .ZPACK DIRECTED, #6 TAB TAKE 500 MG (2 TABS) THE FIRST DAY THEN 250 MG (1 TAB) DAYS 2-5 Prov:LINDA ESTRADA PA-C 08/26/18 Dextromethorphan Hb-Promethazine Hcl* (Promethazine DM* Syrup) 473 Ml Syrup, 5 ML PO Q6 PRN for COUGH, #100 ML Prov:LINDA ESTRADA PA-C 08/26/18 Reported Medications Eplerenone (Inspra) 25 Mg Tablet, 25 MG PO QHS, TAB 09/01/18 Gabapentin* (Gabapentin*) 300 Mg Capsule, 600 MG PO QHS, #180 CAP 09/01/18 Gabapentin* (Gabapentin*) 300 Mg Capsule, 300 MG PO QAM, #60 CAP 09/01/18 Empagliflozin (Jardiance) 10 Mg Tablet, 10 MG PO DAILY, TAB 09/01/18 Metformin Hcl* (Metformin Hcl*) 1,000 Mg Tablet, 1000 MG PO WITH BREAKFAST DINNE, #60 TAB 09/01/18 Sennosides* (Senna Lax*) 8.6 Mg Tablet, 1 TAB PO BID, TAB 09/01/18 Pantoprazole* (Pantoprazole*) 40 Mg Tablet.dr, 40 MG PO AC BREAKFAST, TAB 09/01/18 Lovastatin* (Lovastatin*) 10 Mg Tablet, 10 MG PO HS, TAB 09/01/18 Lisinopril* (Lisinopril*) 40 Mg Tablet, 40 MG PO BID, #30 TAB 09/01/18 Glipizide* (Glipizide*) 10 Mg Tablet, 10 MG PO AC BREAKFAST DINNER, TAB 09/01/18 Finasteride* (Finasteride*) 5 Mg Tablet, 5 MG PO DAILY, TAB 09/01/18 Docusate Sodium* (Colace*) 100 Mg Capsule, 100 MG PO BID, #60 CAP 09/01/18 Amlodipine Besylate* (Amlodipine Besylate*) 10 Mg Tablet, 10 MG PO DAILY, #30 TAB 09/01/18 Alfuzosin Hcl* (Alfuzosin Hcl*) 10 Mg Tab.er.24h, 10 MG PO QHS, #30 TAB.SA 09/01/18 Discontinued Reported Medications Cyclobenzaprine Hcl* (Cyclobenzaprine Hcl*) 10 Mg Tablet, 10 MG PO DAILY, #60 TAB 03/30/18 Sitagliptin Phos/Metformin HCl (Janumet 50-1,000 mg Tablet) 1 Each Tablet, 1 EACH PO BID, TAB 03/30/18 Sennosides* (Senna Lax*) 8.6 Mg Tablet, 1 TAB PO DAILY, TAB 03/30/18 Pantoprazole* (Pantoprazole*) 40 Mg Tablet.dr, 40 MG PO AC BREAKFAST, TAB 03/30/18 Magaldrate/Simethicone* (Mag-Al Plus Suspension*) 30 Ml Oral.susp, 30 ML PO NEEDED, ML 03/30/18 Lovastatin* (Lovastatin*) 10 Mg Tablet, 10 MG PO HS, TAB 03/30/18 Lisinopril* (Lisinopril*) 40 Mg Tablet, 40 MG PO BID, #30 TAB 03/30/18 Hydrocodone/Acetaminophen ([place] 5-325 Tablet) 1 Each Tablet, 1 EACH PO BID, TAB 03/30/18 Glipizide* (Glipizide*) 10 Mg Tablet, 10 MG PO AC BREAKFAST DINNER, TAB 03/30/18 Gabapentin* (Gabapentin*) 300 Mg Capsule, 300 MG PO TID, #90 CAP 03/30/18 Finasteride* (Finasteride*) 5 Mg Tablet, 5 MG PO DAILY, TAB 03/30/18 Ferrous Sulfate* (Ferrous Sulfate*) 325 Mg Tabec, 325 MG PO TID, TAB 03/30/18 Docusate Sodium* (Colace*) 100 Mg Capsule, 100 MG PO Q24H PRN for CONSTIPATION, #30 CAP 03/30/18 Alfuzosin Hcl* (Alfuzosin Hcl*) 10 Mg Tab.er.24h, 10 MG PO DAILY, #30 TAB.SA 03/30/18 Amlodipine Besylate* (Amlodipine Besylate*) 10 Mg Tablet, 10 MG PO DAILY, #30 TAB 03/30/18 Allergies Allergies: Coded Allergies: allopurinol (Verified Allergy, Unknown, ITCHING, NAUSEA, 09/01/18) PMhx/Soc Hypertension, diabetes mellitus, BPH, neuropathy, hypercholesterolemia History of Surgery: Yes (BACK SX,LT KNEE SX, APPEN. PAT CARPAL TUNNEL,CRAN IOTOMY,TONSOLLECTOMY,COLON) Anesthesia Reaction: No Hx Neurological Disorder: No Hx Respiratory Disorders: No Hx Cardiac Disorders: Yes (HIGH CHOLESTEROL; HTN) Hx Psychiatric Problems: No Hx Miscellaneous Medical Probl: Yes (GOUT; DM) Hx Alcohol Use: No Hx Substance Use: No Hx Tobacco Use: No FmHx Family History: No diabetes Physical Exam Vitals Vital Signs Date Temp Pulse Resp B/P (MAP) Pulse Ox O2 O2 Flow FiO2 Time Delivery Rate 09/01/18 98.2 70 16 141/72 99 16:02 (95) Physical Exam Const: No acute distress, afebrile Head: Atraumatic Eyes: Normal Conjunctiva ENT: Normal External Ears, Nose and Mouth. Neck: Full range of motion. No meningismus. Resp: Clear to auscultation bilaterally Cardio: Regular rate and rhythm, no murmurs Abd: Soft, non tender, non distended. Skin: No petechiae or rashes Back: No midline or flank tenderness Ext: No cyanosis, or edema Neur: Awake and alert x3, no focal deficits or facial asymmetry Psych: Normal Mood and Affect Result Diagram: 09/01/18 1648 09/01/18 1648 Results 24 hrs Laboratory Tests Test 09/01/18 16:48 09/01/18 16:49 White Blood Count 7.2 10^3/ul Red Blood Count 4.12 10^6/ul Hemoglobin 12.0 g/dl Hematocrit 37.4 % Mean Corpuscular Volume 90.8 fl Mean Corpuscular Hemoglobin 29.1 pg Mean Corpuscular Hemoglobin Concent 32.1 g/dl Red Cell Distribution Width 13.4 % Platelet Count 215 10^3/UL Mean Platelet Volume 10.5 fl Immature Granulocytes % 0.700 % Neutrophils % 57.9 % Lymphocytes % 28.6 % Monocytes % 6.9 % Eosinophils % 5.1 % Basophils % 0.8 % Nucleated Red Blood Cells % 0.0 /100WBC Immature Granulocytes # 0.050 10^3/ul Neutrophils # 4.2 10^3/ul Lymphocytes # 2.1 10^3/ul Monocytes # 0.5 10^3/ul Eosinophils # 0.4 10^3/ul Basophils # 0.1 10^3/ul Nucleated Red Blood Cells # 0.0 10^3/ul Sodium Level 139 mmol/L Potassium Level 4.6 mmol/L Chloride Level 109 mmol/L Carbon Dioxide Level 22 mmol/L Anion Gap 8 Blood Urea Nitrogen 18 mg/dl Creatinine 1.18 mg/dl Est Glomerular Filtrat Rate mL/min > 60 mL/min Glucose Level 129 mg/dl Calcium Level 9.1 mg/dl Total Bilirubin 0.3 mg/dl Direct Bilirubin 0.00 mg/dl Indirect Bilirubin 0.3 mg/dl Aspartate Amino Transf (AST/SGOT) 45 IU/L Alanine Aminotransferase (ALT/SGPT) 50 IU/L Alkaline Phosphatase 76 IU/L Troponin I < 0.012 ng/ml B-Type Natriuretic Peptide 24 PG/ML Total Protein 7.1 g/dl Albumin 4.0 g/dl Globulin 3.10 g/dl Albumin/Globulin Ratio 1.29 Lipase 167 U/L Prothrombin Time 12.9 Sec Prothrombin Time Ratio 1.0 INR International Normalized Ratio 0.96 Activated Partial Thromboplast Time 27.4 Sec Current Medications Medications Dose Sig/Hasmukh Start Time Status Last (Trade) Ordered Route PRN Stop Time Admin Dose Reason Admin Aspirin 324 mg ONCE ONCE 09/01/18 DC 09/01/18 (Aspirin) PO 17:00 09/01/18 16:52 17:01 Ibuprofen 600 mg ONCE ONCE 09/01/18 DC 09/01/18 (Motrin) PO 17:00 09/01/18 16:52 17:01 Procedures/MDM IV line was established 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 Patient was afebrile EKG performed, read by me revealed a normal sinus rhythm at 71 bpm, normal axis, right ventricular conduction delay QRS duration 104 ms, no concerning ST elevations or depressions noted 1 view chest x-ray performed, read by me revealed cardiomegaly, no acute infiltrates, no pneumothorax. CBC and electrolytes are normal, liver function tests were normal, troponin was negative, BNP was low I administered aspirin 324 mg p.o. for cardioprotective measures and ibuprofen 600 mg p.o. x1. Patient with multiple cardiac risk factors presents today with chest pain and abnormal EKG, he was treated with aspirin and will be admitted to telemetry setting for continued medical management and cardiology consultation. I also administered ibuprofen as pericarditis following URI is also on the differential Departure Diagnosis: Primary Impression: Chest pain Chest pain type: unspecified Qualified Codes: R07.9 - Chest pain, unspecified Condition: SHELBY Putnam MD Sep 01, 2018 16:31
[2018-09-01] MEDS ORDERED: IBUPROFEN 600 MG TAB PO ONE (17:00)
[2018-09-01] MEDS ORDERED: ASPIRIN 81 MG TAB PO ONE (17:00)
[2018-09-01] MEDS ORDERED: AMLO-147 PO (17:14)
[2018-09-01] MEDS ORDERED: ALFU10TA2 PO (17:14)
[2018-09-01] MEDS ORDERED: GLIP10TA14 PO (17:15)
[2018-09-01] MEDS ORDERED: FINA5TAB4 PO (17:15)
[2018-09-01] MEDS ORDERED: DOCU-144 PO (17:15)
[2018-09-01] MEDS ORDERED: LISI40TA3 PO (17:16)
[2018-09-01] MEDS ORDERED: LOVA10TA63 PO (17:16)
[2018-09-01] MEDS ORDERED: SENN-120 PO (17:17)
[2018-09-01] MEDS ORDERED: METF100010 PO (17:17)
[2018-09-01] MEDS ORDERED: PANT40TA4 PO (17:17)
[2018-09-01] MEDS ORDERED: EMPA10TA PO (17:18)
[2018-09-01] MEDS ORDERED: EPLE25TA PO (17:19)
[2018-09-01] MEDS ORDERED: GABA300C16 PO ×2 (17:19)
--- NOTE | 2018-09-01 20:03 | HP ---
Date/Time of Note Date/Time of Note DATE: 09/01/18 TIME: 19:50 Assessment/Plan VTE Prophylaxis SCD applied (from Nsg): Yes Pharmacological prophylaxis: LMWH Lines/Catheters IV Catheter Type (from Nrsg): Saline Lock Assessment/Plan Assessment/Plan -Chest pain rule out acute coronary syndrome will obtain cardiac enzymes every 6 hours x3, 2D echo, continue nitroglycerin, aspirin. Admit to telemetry Dr. Marin is asked to see patient in cardiology consultation. 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 Continue metformin, Tradjenta NovoLog per mild algorithm sliding scale. -Hypertension -Hyperlipidemia -BPH Further recommendations based on clinical course. Plan of care discussed with Dr. Wilcox. Result Diagram: 09/01/18 1648 09/01/18 1648 Results 24hrs Laboratory Tests Test 09/01/18 16:48 09/01/18 16:49 White Blood Count 7.2 Red Blood Count 4.12 L Hemoglobin 12.0 L Hematocrit 37.4 L Mean Corpuscular Volume 90.8 Mean Corpuscular Hemoglobin 29.1 Mean Corpuscular Hemoglobin Concent 32.1 Red Cell Distribution Width 13.4 Platelet Count 215 Mean Platelet Volume 10.5 H Immature Granulocytes % 0.700 H Neutrophils % 57.9 Lymphocytes % 28.6 Monocytes % 6.9 Eosinophils % 5.1 Basophils % 0.8 Nucleated Red Blood Cells % 0.0 Immature Granulocytes # 0.050 H Neutrophils # 4.2 Lymphocytes # 2.1 Monocytes # 0.5 Eosinophils # 0.4 Basophils # 0.1 Nucleated Red Blood Cells # 0.0 Sodium Level 139 Potassium Level 4.6 Chloride Level 109 Carbon Dioxide Level 22 Anion Gap 8 Blood Urea Nitrogen 18 Creatinine 1.18 Est Glomerular Filtrat Rate mL/min > 60 Glucose Level 129 Calcium Level 9.1 Total Bilirubin 0.3 Direct Bilirubin 0.00 Indirect Bilirubin 0.3 Aspartate Amino Transf (AST/SGOT) 45 Alanine Aminotransferase (ALT/SGPT) 50 Alkaline Phosphatase 76 Troponin I < 0.012 B-Type Natriuretic Peptide 24 Total Protein 7.1 Albumin 4.0 Globulin 3.10 Albumin/Globulin Ratio 1.29 Lipase 167 Prothrombin Time 12.9 Prothrombin Time Ratio 1.0 INR International Normalized Ratio 0.96 Activated Partial Thromboplast Time 27.4 HPI/ROS Admit Date/Time Admit Date/Time Hx of Present Illness The patient is a 62-year-old gentleman with history of hypertension, diabetes with diabetic neuropathy, hypercholesterolemia, GOUT, and BPH. Patient stated that he developed chest pain that is been going on for the last 2 weeks with no radiation to the shoulder or back, pain is midsternal with no exacerbating or elevating factors. Patient was seen at primary care physician office and underwent twelve-lead EKG which was abnormal and noted ST segment elevation elevation. And patient was sent to emergency room for further evaluation and management. Patient troponin on admission was negative, twelve- lead EKG revealed sinus rhythm with no ST segment elevation or depression. Patient will be admitted for further evaluation and management to medical surgical floor. Patient stated that he has been treated for bronchitis recently. Patient denies any fever chills denies nausea vomiting denies diarrhea denies shortness of breath. ROS 12 point review of system is negative except for what mentioned in HPI PMH/Family/Social Past Medical History Medical History: diabetes, high cholesterol, hypertension, other Coded Allergies: allopurinol (Verified Allergy, Unknown, ITCHING, NAUSEA, 09/01/18) Past Surgical History Past Surgical Hx: other (,s/p cataract surgery) Family History Significant Family History: diabetes Social History Alcohol Use: none Smoking Status: Former smoker Drug Use: none Exam/Review of Systems Vital Signs Vitals Vital Signs Date Temp Pulse Resp B/P (MAP) Pulse Ox O2 O2 Flow FiO2 Time Delivery Rate 09/01/18 59 16 116/83 100 Room Air 18:28 (94) 09/01/18 98.2 16:02 Exam Constitutional: alert, oriented Head: normocephalic Neck: supple Respiratory: clear to auscultation Cardiovascular: regular rate and rhythm Gastrointestinal: soft, non-tender Musculoskeletal: nl extremities to inspection Neurological: nl mental status Skin: nl AUDREY Norton Sep 01, 2018 20:03
[2018-09-01] MEDS ORDERED: NITROGLYCERIN (SL) 0.4 MG TAB SL PRN (20:30)
[2018-09-01] MEDS ORDERED: ONDANSETRON 4 MG INJ IV PRN (20:30)
[2018-09-01] MEDS ORDERED: IBUPROFEN 600 MG TAB PO PRN (20:30)
[2018-09-01] MEDS ORDERED: ACETAMINOPHEN 325 MG TAB PO PRN (20:30)
[2018-09-01] MEDS ORDERED: NACL 0.9% 3 ML SYG IV SCH (20:30)
[2018-09-01] MEDS ORDERED: MAGNESIUM HYDROXIDE 30ML CUP PO PRN (20:30)
[2018-09-01] MEDS ORDERED: ACCU-CHEK XX SCH (21:00)
[2018-09-01] MEDS ORDERED: NON-FORMULARY/PATIENT OWN MED (Eplerenone (Inspra) 25 MG) PO SCH (21:00)
[2018-09-01] MEDS: ENOXAPARIN 30 MG/0.3 ML SYG SC SCH (22:15)
[2018-09-01] MEDS ORDERED: DEXTROSE 50% 50 ML SYRINGE IV PRN ×2 (22:30)
[2018-09-01] MEDS ORDERED: GLUCOSE GEL 15 GRAM TUBE BUCCAL PRN (22:30)
[2018-09-01] MEDS ORDERED: GLUCOSE GEL 15 GRAM TUBE PO PRN ×2 (22:30)
[2018-09-01] MEDS ORDERED: GLUCAGON 1 MG INJ IM PRN (22:30)
[2018-09-01 22:38] VITALS: PULSE 58
[2018-09-01 23:02] VITALS: Ht 185.4 cm; Wt 95.5 kg
[2018-09-01] MEDS: ACCU-CHEK XX SCH (23:10)
[2018-09-01] MEDS: GABAPENTIN 300 MG CAP PO SCH (23:40)
[2018-09-01] MEDS: morphine 2 MG INJ IV PRN (23:40)
[2018-09-01] MEDS: FAMOTIDINE 20 MG TAB PO SCH (23:43)
[2018-09-01] MEDS: SENNA TAB PO SCH (23:43)
[2018-09-01] MEDS: ALFUZOSIN (SR) 10 MG TAB PO SCH (23:43)
[2018-09-01 23:44] VITALS: BP 144/74; PULSE 84; RESP 18
[2018-09-01] MEDS: LISINOPRIL 20 MG TAB PO SCH (23:46)
[2018-09-01] MEDS: ZOLPIDEM 5 MG TAB PO PRN (23:53)
[2018-09-02] VITALS (10 sets, daily range): BP systolic 125–148; BP diastolic 66–78; PULSE 61–96; RESP 18–20
[2018-09-02] MEDS: ENOXAPARIN 30 MG/0.3 ML SYG SC SCH ×2 (00:03→08:43)
[2018-09-02] MEDS: morphine 2 MG INJ IV PRN ×4 (03:34→20:49)
[2018-09-02] MEDS: ACCU-CHEK XX SCH ×4 (07:25→21:00)
[2018-09-02] MEDS: SENNA TAB PO SCH ×2 (08:25→20:41)
[2018-09-02] MEDS: metFORMIN 500 MG TAB PO SCH ×2 (08:25→17:03)
[2018-09-02] MEDS: FAMOTIDINE 20 MG TAB PO SCH ×2 (08:25→20:41)
[2018-09-02] MEDS: FINASTERIDE 5 MG TAB PO SCH (08:26)
[2018-09-02] MEDS: glipiZIDE 10 MG TAB PO SCH ×2 (08:26→17:03)
[2018-09-02] MEDS: PANTOPRAZOLE (EC) 40 MG TAB PO SCH (08:27)
[2018-09-02] MEDS: EMPAGLIFLOZIN 10 MG TABLET PO SCH (08:27)
[2018-09-02] MEDS: GABAPENTIN 300 MG CAP PO SCH ×2 (08:27→20:41)
[2018-09-02] MEDS: AMLODIPINE 10 MG TAB PO SCH (08:27)
[2018-09-02] MEDS: LISINOPRIL 20 MG TAB PO SCH ×2 (08:28→20:41)
[2018-09-02] MEDS: ASPIRIN (EC) 325 MG TAB PO SCH (08:28)
--- NOTE | 2018-09-02 16:19 | PN ---
Date/Time of Note Date/Time of Note DATE: 09/02/18 TIME: 16:16 Assessment/Plan VTE Prophylaxis Risk score (from Ns)>0 risk: 3 SCD applied (from Ns): Yes SCD contraindicated: patient refusal Pharmacological prophylaxis: LMWH Lines/Catheters IV [facility]from [facility] Saline Lock Assessment/Plan Hospital Course Patient remains hemodynamically stable, pain is adequately controlled, pending stress test tomorrow. Assessment/Plan -Chest pain, rule out acute coronary syndrome, troponin is negative x3, pending 2D echo, continue nitroglycerin, aspirin. Continue telemetry monitoring Dr. Marin is following in cardiology consultation. -Diabetes mellitus with diabetic neuropathy with hemoglobin A1c 8.7. Continue metformin, Tradjenta, NovoLog per mild algorithm sliding scale. -Hypertension -Hyperlipidemia -BPH Further recommendations based on clinical course. Plan of care discussed with Dr. Wilcox. Result Diagram: 09/02/18 0738 09/02/18 0738 Results 24hrs Laboratory Tests Test 09/01/18 16:48 09/01/18 16:49 09/01/18 22:53 09/02/18 00:23 White Blood Count 7.2 Red Blood Count 4.12 L Hemoglobin 12.0 L Hematocrit 37.4 L Mean Corpuscular Volume 90.8 Mean Corpuscular 29.1 Hemoglobin Mean Corpuscular 32.1 Hemoglobin Concent Red Cell Distribution 13.4 Width Platelet Count 215 Mean Platelet Volume 10.5 H Immature Granulocytes % 0.700 H Neutrophils % 57.9 Lymphocytes % 28.6 Monocytes % 6.9 Eosinophils % 5.1 Basophils % 0.8 Nucleated Red Blood 0.0 Cells % Immature Granulocytes # 0.050 H Neutrophils # 4.2 Lymphocytes # 2.1 Monocytes # 0.5 Eosinophils # 0.4 Basophils # 0.1 Nucleated Red Blood 0.0 Cells # Sodium Level 139 Potassium Level 4.6 Chloride Level 109 Carbon Dioxide Level 22 Anion Gap 8 Blood Urea Nitrogen 18 Creatinine 1.18 Est Glomerular Filtrat > 60 Rate mL/min Glucose Level 129 Calcium Level 9.1 Total Bilirubin 0.3 Direct Bilirubin 0.00 Indirect Bilirubin 0.3 Aspartate Amino 45 Transf (AST/SGOT) Alanine 50 Aminotransferase (ALT/SG PT) Alkaline Phosphatase 76 Troponin I < 0.012 < 0.012 B-Type Natriuretic 24 Peptide Total Protein 7.1 Albumin 4.0 Globulin 3.10 Albumin/Globulin Ratio 1.29 Lipase 167 Prothrombin Time 12.9 Prothrombin Time Ratio 1.0 INR International 0.96 Normalized Ratio Activated 27.4 Partial Thromboplast Time Bedside Glucose 187 Creatine Kinase 313 H Creatine Kinase Index 0.6 Creatinine Kinase MB 1.83 (Mass) Test 09/02/18 07:38 09/02/18 08:24 09/02/18 11:59 09/02/18 12:28 White Blood Count 6.6 Red Blood Count 4.20 L Hemoglobin 12.2 L Hematocrit 37.4 L Mean Corpuscular Volume 89.0 Mean Corpuscular 29.0 Hemoglobin Mean Corpuscular 32.6 Hemoglobin Concent Red Cell Distribution 13.6 Width Platelet Count 210 Mean Platelet Volume 11.4 H Immature Granulocytes % 0.600 H Neutrophils % 61.3 Lymphocytes % 26.1 Monocytes % 6.6 Eosinophils % 4.3 Basophils % 1.1 Nucleated Red Blood 0.0 Cells % Immature Granulocytes # 0.040 H Neutrophils # 4.0 Lymphocytes # 1.7 Monocytes # 0.4 Eosinophils # 0.3 Basophils # 0.1 Nucleated Red Blood 0.0 Cells # Sodium Level 139 Potassium Level 4.6 Chloride Level 105 Carbon Dioxide Level 24 Anion Gap 10 Blood Urea Nitrogen 18 Creatinine 0.93 Est Glomerular Filtrat > 60 Rate mL/min Glucose Level 155 Hemoglobin A1c 8.7 H Calcium Level 9.2 Magnesium Level 1.6 L Total Bilirubin 0.1 L Direct Bilirubin 0.00 Indirect Bilirubin 0.1 Aspartate Amino 42 Transf (AST/SGOT) Alanine 52 Aminotransferase (ALT/SG PT) Alkaline Phosphatase 77 Creatine Kinase 261 H 243 H Creatine Kinase Index 0.5 0.5 Creatinine Kinase MB 1.28 1.12 (Mass) Troponin I < 0.012 < 0.012 Total Protein 6.6 Albumin 3.7 Globulin 2.90 Albumin/Globulin Ratio 1.27 Triglycerides Level 202 H Cholesterol Level 133 LDL Cholesterol, 54 Calculated HDL Cholesterol 39 Cholesterol/HDL Ratio 3.4 Bedside Glucose 158 103 Exam/Review of Systems Exam Vitals Vital Signs Date Temp Pulse Resp B/P (MAP) Pulse Ox O2 O2 Flow FiO2 Time Delivery Rate 09/02/18 97.4 80 20 126/70 97 Room Air 15:08 (88) Intake and Output 09/01/18 09/01/18 09/02/18 1414:59 22:59 06:59 IntakeIntake Total 500 ml BalanceBalance 500 ml Exam Constitutional: alert, oriented Respiratory: clear to auscultation Cardiovascular: regular rate and rhythm Gastrointestinal: soft, non-tender Musculoskeletal: nl extremities to inspection Neurological: nl mental status Skin: nl turgor Results Results 24hrs Laboratory Tests Test 09/01/18 16:48 09/01/18 16:49 09/01/18 22:53 09/02/18 00:23 White Blood Count 7.2 Red Blood Count 4.12 L Hemoglobin 12.0 L Hematocrit 37.4 L Mean Corpuscular Volume 90.8 Mean Corpuscular 29.1 Hemoglobin Mean Corpuscular 32.1 Hemoglobin Concent Red Cell Distribution 13.4 Width Platelet Count 215 Mean Platelet Volume 10.5 H Immature Granulocytes % 0.700 H Neutrophils % 57.9 Lymphocytes % 28.6 Monocytes % 6.9 Eosinophils % 5.1 Basophils % 0.8 Nucleated Red Blood 0.0 Cells % Immature Granulocytes # 0.050 H Neutrophils # 4.2 Lymphocytes # 2.1 Monocytes # 0.5 Eosinophils # 0.4 Basophils # 0.1 Nucleated Red Blood 0.0 Cells # Sodium Level 139 Potassium Level 4.6 Chloride Level 109 Carbon Dioxide Level 22 Anion Gap 8 Blood Urea Nitrogen 18 Creatinine 1.18 Est Glomerular Filtrat > 60 Rate mL/min Glucose Level 129 Calcium Level 9.1 Total Bilirubin 0.3 Direct Bilirubin 0.00 Indirect Bilirubin 0.3 Aspartate Amino 45 Transf (AST/SGOT) Alanine 50 Aminotransferase (ALT/SG PT) Alkaline Phosphatase 76 Troponin I < 0.012 < 0.012 B-Type Natriuretic 24 Peptide Total Protein 7.1 Albumin 4.0 Globulin 3.10 Albumin/Globulin Ratio 1.29 Lipase 167 Prothrombin Time 12.9 Prothrombin Time Ratio 1.0 INR International 0.96 Normalized Ratio Activated 27.4 Partial Thromboplast Time Bedside Glucose 187 Creatine Kinase 313 H Creatine Kinase Index 0.6 Creatinine Kinase MB 1.83 (Mass) Test 09/02/18 07:38 09/02/18 08:24 09/02/18 11:59 09/02/18 12:28 White Blood Count 6.6 Red Blood Count 4.20 L Hemoglobin 12.2 L Hematocrit 37.4 L Mean Corpuscular Volume 89.0 Mean Corpuscular 29.0 Hemoglobin Mean Corpuscular 32.6 Hemoglobin Concent Red Cell Distribution 13.6 Width Platelet Count 210 Mean Platelet Volume 11.4 H Immature Granulocytes % 0.600 H Neutrophils % 61.3 Lymphocytes % 26.1 Monocytes % 6.6 Eosinophils % 4.3 Basophils % 1.1 Nucleated Red Blood 0.0 Cells % Immature Granulocytes # 0.040 H Neutrophils # 4.0 Lymphocytes # 1.7 Monocytes # 0.4 Eosinophils # 0.3 Basophils # 0.1 Nucleated Red Blood 0.0 Cells # Sodium Level 139 Potassium Level 4.6 Chloride Level 105 Carbon Dioxide Level 24 Anion Gap 10 Blood Urea Nitrogen 18 Creatinine 0.93 Est Glomerular Filtrat > 60 Rate mL/min Glucose Level 155 Hemoglobin A1c 8.7 H Calcium Level 9.2 Magnesium Level 1.6 L Total Bilirubin 0.1 L Direct Bilirubin 0.00 Indirect Bilirubin 0.1 Aspartate Amino 42 Transf (AST/SGOT) Alanine 52 Aminotransferase (ALT/SG PT) Alkaline Phosphatase 77 Creatine Kinase 261 H 243 H Creatine Kinase Index 0.5 0.5 Creatinine Kinase MB 1.28 1.12 (Mass) Troponin I < 0.012 < 0.012 Total Protein 6.6 Albumin 3.7 Globulin 2.90 Albumin/Globulin Ratio 1.27 Triglycerides Level 202 H Cholesterol Level 133 LDL Cholesterol, 54 Calculated HDL Cholesterol 39 Cholesterol/HDL Ratio 3.4 Bedside Glucose 158 103 Medications Medication Current Medications IV Flush (NS 3 ml) 3 ml PER PROTOCOL IV ; Start 09/01/18 at 20:30 Ondansetron HCl (Zofran Inj) 4 mg Q6H PRN IV NAUSEA/VOMITING; Start 09/01/18 at 20:30 Aspirin (Ecotrin) 325 mg DAILY PO Last administered on 09/02/18at 08:28; Admin Dose 325 MG; Start 09/02/18 at 09:00 Nitroglycerin (Nitroglycerin (Sl Tab) 0.4 Mg) 1 tab Q5M PRN SL .CHEST PAIN Last administered on 09/01/18at 22:10; Admin Dose 1 TAB; Start 09/01/18 at 20:30 Acetaminophen (Tylenol Tab) 650 mg Q6H PRN PO .PAIN 1-3 OR TEMP; Start 09/01/18 at 20:30 Ibuprofen (Motrin) 600 mg Q6H PRN PO .PAIN 1-3 OR TEMP; Start 09/01/18 at 20:30 Morphine Sulfate (morphine) 2 mg Q4H PRN IV .PAIN 7-10 Last administered on 09/02/18 14:30; Admin Dose 2 MG; Start 09/01/18 at 20:30 Zolpidem Tartrate (Ambien) 5 mg QHS PRN PO .INSOMNIA Last administered on 09/01/18 23:53; Admin Dose 5 MG; Start 09/01/18 at 20:30 Docusate Sodium (Colace) 100 mg Q12H PRN PO .CONSTIPATION; Start 09/01/18 at 20:30 Magnesium Hydroxide (Milk Of Mag) 30 ml DAILY PRN PO .CONSTIPATION; Start 09/01/18 at 20:30 Famotidine (Pepcid) 20 mg Q12 PO Last administered on 09/02/18 08:25; Admin Dose 20 MG; Start 09/01/18 at 21:00 Enoxaparin Sodium (Lovenox) 30 mg DAILY SC Last administered on 09/02/18 08:43; Admin Dose 30 MG; Start 09/01/18 at 20:30 Alfuzosin HCl (Uroxatral) 10 mg QHS PO Last administered on 09/01/18 23:43; A dmin Dose 10 MG; Start 09/01/18 at 21:00 Amlodipine Besylate (Norvasc) 10 mg DAILY PO Last administered on 09/02/18 08:27; Admin Dose 10 MG; Start 09/02/18 at 09:00 Empaglifozin (Jardiance) 10 mg DAILY PO Last administered on 09/02/18 08:27; Admin Dose 10 MG; Start 09/02/18 at 09:00 Finasteride (Proscar) 5 mg DAILY PO Last administered on 09/02/18 08:26; Admin Dose 5 MG; Start 09/02/18 at 09:00 Gabapentin (Neurontin) 300 mg QAM PO Last administered on 09/02/18 08:27; Admin Dose 300 MG; Start 09/02/18 at 09:00 Gabapentin (Neurontin) 600 mg QHS PO Last administered on 09/01/18 23:40; Admin Dose 600 MG; Start 09/01/18 at 21:00 Glipizide (Glucotrol) 10 mg AC BREAKFAST DINNER PO Last administered on 09/02/18 08:26; Admin Dose 10 MG; Start 09/02/18 at 07:00 Lisinopril (Zestril) 40 mg BID PO Last administered on 09/02/18at 08:28; Admin Dose 40 MG; Start 09/01/18 at 21:00 Metformin HCl (Glucophage) 1,000 mg WITH BREAKFAST DINNE PO Last administered on 09/02/18at 08:25; Admin Dose 1,000 MG; Start 09/02/18 at 07:55 Pantoprazole (Protonix Tab) 40 mg AC BREAKFAST PO Last administered on 09/02/18at 08:27; Admin Dose 40 MG; Start 09/02/18 at 07:00 Senna (Senokot) 1 tab BID PO Last administered on 09/02/18at 08:25; Admin Dose 1 TAB; Start 09/01/18 at 21:00 Miscellaneous Information 25 mg QHS PO ; Start 09/01/18 at 21:00; Status UNV Atorvastatin Calcium (Lipitor) 10 mg DAILY@21 PO ; Start 09/02/18 at 21:00 Diagnostic Test (Pha) (Accu-Chek) 1 ea AC MEALS AND BEDTIME XX ; Start 09/01/18 at 21:00 Miscellaneous Information 1 ea NOTE XX ; Start 09/01/18 at 22:30 Glucose (Glutose) 15 gm Q15M PRN PO DECREASED GLUCOSE; Start 09/01/18 at 22:30 Glucose (Glutose) 22.5 gm Q15M PRN PO DECREASED GLUCOSE; Start 09/01/18 at 22:30 Dextrose (D50w Syringe) 25 ml Q15M PRN IV DECREASED GLUCOSE; Start 09/01/18 at 2 2:30 Dextrose (D50w Syringe) 50 ml Q15M PRN IV DECREASED GLUCOSE; Start 09/01/18 at 22:30 Glucagon (Glucagen) 1 mg Q15M PRN IM DECREASED GLUCOSE; Start 09/01/18 at 22:30 Glucose (Glutose) 15 gm Q15M PRN BUCCAL DECREASED GLUCOSE; Start 09/01/18 at 22:30 AUDREY LAND Sep 02, 2018 16:19
--- NOTE | 2018-09-02 17:49 | RADRPT ---
Echocardiogram Report Patient Name: Adi BARNHART ID: [id number] : 1955 (62y 9m)Study Date: 09/02/2018 9:01:41 AM Gender: MAccession #: [id number] Tech: Luis A Ramsey [facility] Location: [address] Ref.Physician: AUDREY LAND Height(Cm): BSA: Weight(Kg): Quality: AdequateAccount #: Procedures: Echocardiographic Report: Transthoracic echocardiogram with complete 2D, M-Mode, and doppler examination. Indications: Evaluate Left Ventricular function, and Chest Pain. Measurements: 2D/M Mode Doppler Measurement Value Normal Range Measurement Value Normal Range LVIDd 2D 5.4 [ 4.2 - 5.8 ] cm AV Peak David 1.5 [ 100.0 - 170.0 ] cm/sec LVIDs 2D 3.8 [ 2.5 - 4.0 ] cm AV Peak PG 9.0 [ 2.0 - 9.0 ] mmHg LVPWd 2D 1.1 [ 0.6 - 1.0 ] cm LVOT Peak David 0.8 [ 70.0 - 110.0 ] cm/sec IVSd 2D 1.1 [ 0.6 - 1.0 ] cm LVOT Peak PG 3.0 [ 2.0 - 6.0 ] mmHg AoR Diam 2D 2.7 [ 2.6 - 3.4 ] cm MV E Peak David 0.6 [ 60.0 - 130.0 ] cm/sec EDV 2D 143.0 [ 62.0 - 150.0 ] ml MV A Peak David 0.8 [ 100.0 - 120.0 ] cm/sec ESV 2D 61.6 [ 21.0 - 61.0 ] ml MV E/A 0.8 [ 0.8 - 1.5 ] ratio EF 2D 56.9 [ 52.0 - 72.0 ] percent MV Decel Time 211 [ 104 - 258 ] msec LA Dimen 2D 3.9 [ 3.0 - 4.0 ] cm Lat E` David 0.1 [ 10.0 - 15.0 ] cm/sec Lateral E/E` 9.8 [ 1.0 - 2.0 ] ratio MV E/A 0.8 [ 0.8 - 1.5 ] ratio TR Peak David 1.8 [ 100.0 - 280.0 ] cm/sec TR Peak PG 12.0 mmHg RVSP 15.0 [ 10.0 - 36.0 ] mmHg Findings: Left Ventricle: Normal left ventricular systolic function. Normal left ventricular cavity size. Left ventricular wall thickness upper limits of normal. Ejection fraction is visually estimated at 55 %. Tissue Doppler/Mitral Doppler indices are consistent with impaired relaxation (Stage I diastolic dysfunction). Right Ventricle: Normal right ventricular size. Normal right ventricular systolic function. Left Atrium: The left atrium is normal in size. Right Atrium: The right atrium is normal in size. Mitral Valve: Mild mitral leaflet calcification. Mild mitral annular calcification. Trace mitral regurgitation. Aortic Valve: No hemodynamically significant aortic stenosis by doppler. Aortic cusps appear mildly calcified. Tricuspid Valve: Normal appearance of the tricuspid valve. Estimated peak PA systolic pressure 15 mmHg. There is trace tricuspid regurgitation. Pericardium: Normal pericardium with no significant pericardial effusion. Aorta: Normal aortic root. IVC: Normal size and normal respiratory collapse consistent with normal right atrial pressure. Conclusions: Normal left ventricular systolic function. Normal left ventricular cavity size. Left ventricular wall thickness upper limits of normal. Ejection fraction is visually estimated at 55 %. Tissue Doppler/Mitral Doppler indices are consistent with impaired relaxation (Stage I diastolic dysfunction). Mild mitral leaflet calcification. Mild mitral annular calcification. Trace mitral regurgitation. Normal appearance of the tricuspid valve. Estimated peak PA systolic pressure 15 mmHg. There is trace tricuspid regurgitation. Electronically Signed By: Misha Marin 2018-09-02 17:49:23 PDT
--- NOTE | 2018-09-02 20:37 | CONS ---
DATE OF ADMISSION: 09/01/2018 DATE OF CONSULTATION: 09/02/2018 TYPE OF CONSULTATION: Cardiology. REASON FOR CONSULTATION: Chest pain, assess for acute coronary syndrome. REQUESTING PHYSICIAN: Donaldo Wilcox MD HISTORY OF PRESENT ILLNESS: Mr. Paz is a 62-year-old male with history of diabetes mellitus, hyper tension, dyslipidemia, BPH, who presents with complaints of approximately 2 weeks of substernal chest pain, describes a pressure-like sensation with radiation to the back and shoulder. The patient had presented to his primary care physician with complaints of chest pain, underwent an electrocardiogram with his primary care physician and was concerned about abnormalities and therefore was sent directl y to the emergency department with notably thought to be ST-wave elevations which there is ____ which was J-point elevation, normal concavity to the ST segment not consistent with elevation HI. The pat ient was sent here at [facility] where upon arrival, temperature of 98.2, blood pre ssure 141/72, pulse 70, respiratory rate 16, satting 99%. The patient's labs are notable for white b lood cell count of 7.2, hemoglobin 12.0, platelet count of 215, sodium 139, potassium 4.6, creatinine 0.9, BUN 18, AST 42, ALT 52, LDL 54, HDL 39, INR 0.96. The patient underwent a chest x-ray revealin g no acute cardiopulmonary abnormalities, stable cardiomegaly. The patient's electrocardiogram revea led normal sinus rhythm, rate of 71, normal axis, ____ bundle branch block, secondary repolarization abnormalities. The patient subsequently has been admitted to the floor and since admit to floor, has had 2 troponins returned negative for total negative of 3 troponins. The patient's blood pressures have been recently controlled in to 120s up to 140s. The patient continues to have chest pain. The patient does have some reproducible chest pain on palpation of chest. PAST MEDICAL HISTORY: As above in HPI. MEDICATIONS CURRENTLY IN HOSPITAL: 1. Lipitor 10 mg at bedtime. 2. Aspirin 325 mg daily. 3. Norvasc 10 mg daily. 4. Jardiance. 5. Proscar 5 mg daily. 6. Gabapentin 300 mg q.a.m. 7. Glipizide. 8. Protonix 40 mg daily. 9. Pepcid 20 mg q.12. 10. Alfuzosin 10 at bedtime. 11. Neurontin ____ at bedtime. 12. Zestril 40 mg b.i.d. 13. Senna 1 tab b.i.d. 14. Lovenox 40 mg subcutaneously daily. ALLERGIES: ALLOPURINOL. SOCIAL HISTORY: No current tobacco, EtOH or illicit drug use, but did have extensive tobacco intake but quit. FAMILY HISTORY: No history of sudden cardiac or early CAD. REVIEW OF SYSTEMS: As above in HPI. CONSTITUTIONAL: No fevers, chills. PULMONARY: No current shortness of breath. CARDIOVASCULAR: Chest pain. GASTROINTESTINAL: No vomiting. GENITOURINARY: No hematuria. MUSCULOSKELETAL: Degenerative joint disease. PSYCHIATRIC: The patient has depression. NEUROLOGIC: No documented history of CVA. PHYSICAL EXAMINATION VITAL SIGNS: Temperature of 98.2, blood pressure most recently 126/70, pulse 80, respiratory rate 20 , satting 97%. GENERAL: The patient is alert, awake, complaining of substernal chest pain. NECK: JVP approximately is 8 to 9 cm of water. CHEST: Fair air movement throughout. HEART: Regular rate and rhythm. Normal S1, S2, I/ systolic murmur, nondisplaced PMI. ABDOMEN: Positive bowel sounds, soft. EXTREMITIES: No significant pitting edema, 1+ pulses bilateral posterior tibial. LABORATORY DATA: Most recently from today, negative troponins greater than 3. Sodium 139, potassium 4.6, creatinine 0.9, BUN 18. LDL 54, HDL 39. White blood cell count 6.6, hemoglobin 12.2, platelet count of 210. IMAGING STUDIES: Chest x-ray from 09/01/2018 revealing no acute cardiopulmonary abnormalities. ELECTROCARDIOGRAM: Revealed normal sinus rhythm from 09/01/2018, rate of 71, normal axis, normal int ervals, no significant ST elevation noted at this time. IMPRESSION: 1. Chest pain, assess for acute coronary syndrome. 2. Abnormal electrocardiogram, assess for acute coronary syndrome. 3. Hypertension, under reasonable control. 4. Dyslipidemia. 5. Diabetes mellitus. 6. Benign prostatic hypertrophy. RECOMMENDATIONS: 1. At this time, we would maintain the patient on current aspirin for prophylaxis against cardiovasc ular events and continue the patient's calcium channel juan antonio and statin at this time and discontinu e the patient's MARSHAL inhibitor, following blood pressure closely. 2. We will consider initiation of low dose beta juan antonio. 3. We will follow the patient's 2D echo done for assessment of ejection fraction, wall motion or rul e out major valve abnormalities. 4. Given the patient's chest pain, ongoing symptomatology, multiple cardiac risk factors with negati ve troponins, we will place patient in for a cardiac stress test to further assess the possibility of significant obstructive coronary artery disease lending to symptoms of chest pain and subsequent adm it to the hospital to take place first thing in the morning. Thank you for allowing me to take part in the care of this patient. I will continue to follow him ve ry closely with you with further recommendations to be made as the [facility] Dictated By: CADEN ROBERTSON/KAVITHA Conf#: [id number] DID#: [id number] CC: DONALDO WILCOX MD;*EndCC*
[2018-09-02] MEDS: ATORVASTATIN 10 MG TAB PO SCH (20:40)
[2018-09-02] MEDS: ALFUZOSIN (SR) 10 MG TAB PO SCH (20:44)
[2018-09-02] MEDS: [UNRECOGNIZED DRUG - OTHER] XX SCH (22:30)
[2018-09-03] VITALS (9 sets, daily range): BP systolic 110–151; BP diastolic 57–75; PULSE 64–83; RESP 18–22
[2018-09-03] MEDS: [UNRECOGNIZED DRUG - OTHER] XX SCH ×3 (05:29→22:30)
[2018-09-03] MEDS: morphine 2 MG INJ IV PRN ×3 (07:17→21:59)
[2018-09-03] MEDS: PANTOPRAZOLE (EC) 40 MG TAB PO SCH (07:17)
[2018-09-03] MEDS: ACCU-CHEK XX SCH ×4 (07:25→21:00)
[2018-09-03] MEDS: glipiZIDE 10 MG TAB PO SCH ×2 (07:25→17:19)
[2018-09-03] MEDS: metFORMIN 500 MG TAB PO SCH ×2 (07:43→17:19)
[2018-09-03] MEDS: GABAPENTIN 300 MG CAP PO SCH ×2 (08:51→21:01)
[2018-09-03] MEDS: SENNA TAB PO SCH ×2 (08:52→21:01)
[2018-09-03] MEDS: LISINOPRIL 20 MG TAB PO SCH ×2 (08:52→21:01)
[2018-09-03] MEDS: FINASTERIDE 5 MG TAB PO SCH (08:52)
[2018-09-03] MEDS: FAMOTIDINE 20 MG TAB PO SCH ×2 (08:53→21:01)
[2018-09-03] MEDS: ASPIRIN (EC) 325 MG TAB PO SCH (08:53)
[2018-09-03] MEDS: AMLODIPINE 10 MG TAB PO SCH (08:53)
[2018-09-03] MEDS: EMPAGLIFLOZIN 10 MG TABLET PO SCH (08:57)
[2018-09-03] MEDS: ENOXAPARIN 30 MG/0.3 ML SYG SC SCH (08:57)
[2018-09-03] MEDS: DOCUSATE SODIUM 100 MG CAP PO PRN (10:13)
[2018-09-03] MEDS ORDERED: REGADENOSON 0.4 MG/5 ML SYG ONE (11:26)
--- NOTE | 2018-09-03 12:47 | CONS ---
Assessment/Plan Assessment/Plan Hospital Course (Demo Recall) IMPRESSION: 1. Chest pain, assess for acute coronary syndrome.-neg trop x 3/NL EF by echo 2. Abnormal electrocardiogram, assess for acute coronary syndrome. 3. Hypertension, under reasonable control. 4. Dyslipidemia. 5. Diabetes mellitus. 6. Benign prostatic hypertrophy. Recc: -Tele -Continu asa/statin -Continue Norvasc/zestril -Add oral nitrates -Lexiscan stress test today Consultation Date/Type/Reason Admit Date/Time Sep 01, 2018 at 17:58 Initial Consult Date 09/01/18 Type of Consult Cardiology Reason for Consultation chest pain Requesting Provider: DONALDO KONG MD Date/Time of Note DATE: 09/03/18 TIME: 12:45 Exam/Review of Systems Vital Signs Vitals Vital Signs Date Temp Pulse Resp B/P (MAP) Pulse Ox O2 O2 Flow FiO2 Time Delivery Rate 09/03/18 65 09:25 09/03/18 98.0 22 151/75 96 Room Air 07:36 (100) Intake and Output 09/02/18 09/02/18 09/03/18 1414:59 22:59 06:59 IntakeIntake Total 1200 ml 600 ml BalanceBalance 1200 ml 600 ml Exam Exam Review of Systems: CONSTITUTIONAL: No fevers, chills. PULMONARY: No sob CARDIOVASCULAR: intermittent chest pain GASTROINTESTINAL: No nausea/vomiting. GENITOURINARY: No hematuria/dysuria. MUSCULOSKELETAL: No myagias/arthalgias. PSYCHIATRIC: The patient denies depression. NEUROLOGIC: No weakness Constitutional: alert Psych: no complaints Head: normocephalic Neck: supple, jvd (9 cm water) Respiratory: clear to auscultation Cardiovascular: regular rate and rhythm Gastrointestinal: soft, non-tender Musculoskeletal: muscle tone (normal) Extremities: edema (none) Neurological: other (No focal deficits) Labs Result Diagram: 09/02/18 0738 09/02/18 0738 Results 24hrs Laboratory Tests Test 09/02/18 17:01 09/02/18 21:18 09/02/18 21:20 09/03/18 02:09 Bedside Glucose 97 74 70 115 Test 09/03/18 07:38 09/03/18 10:05 09/03/18 11:13 Bedside Glucose 109 133 115 Medications Medications Current Medications IV Flush (NS 3 ml) 3 ml PER PROTOCOL IV ; Start 09/01/18 at 20:30 Ondansetron HCl (Zofran Inj) 4 mg Q6H PRN IV NAUSEA/VOMITING; Start 09/01/18 at 20:30 Aspirin (Ecotrin) 325 mg DAILY PO Last administered on 09/03/18 08:53; Admin Dose 325 MG; Start 09/02/18 at 09:00 Nitroglycerin (Nitroglycerin (Sl Tab) 0.4 Mg) 1 tab Q5M PRN SL .CHEST PAIN Last administered on 09/01/18 22:10; Admin Dose 1 TAB; Start 09/01/18 at 20:30 Acetaminophen (Tylenol Tab) 650 mg Q6H PRN PO .PAIN 1-3 OR TEMP; Start 09/01/18 at 20:30 Ibuprofen (Motrin) 600 mg Q6H PRN PO .PAIN 1-3 OR TEMP; Start 09/01/18 at 20:30 Morphine Sulfate (morphine) 2 mg Q4H PRN IV .PAIN 7-10 Last administered on 09/03/18 07:17; Admin Dose 2 MG; Start 09/01/18 at 20:30 Zolpidem Tartrate (Ambien) 5 mg QHS PRN PO .INSOMNIA Last administered on 09/01/18 23:53; Admin Dose 5 MG; Start 09/01/18 at 20:30 Docusate Sodium (Colace) 100 mg Q12H PRN PO .CONSTIPATION Last administered on 09/03/18 10:13; Admin Dose 100 MG; Start 09/01/18 at 20:30 Magnesium Hydroxide (Milk Of Mag) 30 ml DAILY PRN PO .CONSTIPATION; Start 09/01/18 at 20:30 Famotidine (Pepcid) 20 mg Q12 PO Last administered on 09/03/18 08:53; Admin Dose 20 MG; Start 09/01/18 at 21:00 Enoxaparin Sodium (Lovenox) 30 mg DAILY SC Last administered on 09/03/18 08:57; Admin Dose 30 MG; Start 09/01/18 at 20:30 Alfuzosin HCl (Uroxatral) 10 mg QHS PO Last administered on 09/02/18 20:44; Adm in Dose 10 MG; Start 09/01/18 at 21:00 Amlodipine Besylate (Norvasc) 10 mg DAILY PO Last administered on 09/03/18 08:53; Admin Dose 10 MG; Start 09/02/18 at 09:00 Empaglifozin (Jardiance) 10 mg DAILY PO Last administered on 09/02/18 08:27; Admin Dose 10 MG; Start 09/02/18 at 09:00 Finasteride (Proscar) 5 mg DAILY PO Last administered on 09/03/18 08:52; Admin Dose 5 MG; Start 09/02/18 at 09:00 Gabapentin (Neurontin) 300 mg QAM PO Last administered on 09/03/18 08:51; Admin Dose 300 MG; Start 09/02/18 at 09:00 Gabapentin (Neurontin) 600 mg QHS PO Last administered on 09/02/18 20:41; Admin Dose 600 MG; Start 09/01/18 at 21:00 Glipizide (Glucotrol) 10 mg AC BREAKFAST DINNER PO Last administered on 09/02/18 17:03; Admin Dose 10 MG; Start 09/02/18 at 07:00 Lisinopril (Zestril) 40 mg BID PO Last administered on 09/03/18 08:52; Admin Dose 40 MG; Start 09/01/18 at 21:00 Metformin HCl (Glucophage) 1,000 mg WITH BREAKFAST DINNE PO Last administered on 09/02/18 17:03; Admin Dose 1,000 MG; Start 09/02/18 at 07:55 Pantoprazole (Protonix Tab) 40 mg AC BREAKFAST PO Last administered on 09/03/18 07:17; Admin Dose 40 MG; Start 09/02/18 at 07:00 Senna (Senokot) 1 tab BID PO Last administered on 09/03/18 08:52; Admin Dose 1 TAB; Start 09/01/18 at 21:00 Miscellaneous Information 25 mg QHS PO ; Start 09/01/18 at 21:00; Status UNV Atorvastatin Calcium (Lipitor) 10 mg DAILY@21 PO Last administered on 09/02/18 20:40; Admin Dose 10 MG; Start 09/02/18 at 21:00 Diagnostic Test (Pha) (Accu-Chek) 1 ea AC MEALS AND BEDTIME XX ; Start 09/01/18 at 21:00 Miscellaneous Information 1 ea NOTE XX ; Start 09/01/18 at 22:30 Glucose (Glutose) 15 gm Q15M PRN PO DECREASED GLUCOSE; Start 09/01/18 at 22:30 Glucose (Glutose) 22.5 gm Q15M PRN PO DECREASED GLUCOSE; Start 09/01/18 at 22:30 Dextrose (D50w Syringe) 25 ml Q15M PRN IV DECREASED GLUCOSE; Start 09/01/18 at 22:30 Dextrose (D50w Syringe) 50 ml Q15M PRN IV DECREASED GLUCOSE; Start 09/01/18 at 22:30 Glucagon (Glucagen) 1 mg Q15M PRN IM DECREASED GLUCOSE; Start 09/01/18 at 22:30 Glucose (Glutose) 15 gm Q15M PRN BUCCAL DECREASED GLUCOSE; Start 09/01/18 at 2 2:30 Miscellaneous Information (*Order Clarification Bulletin) INSPRA IS NON FORMULARY...PLEASE CONSIDER AN OR... Q8H XX ; Start 09/02/18 at 22:30 CADEN SARABIA Sep 03, 2018 12:47
--- NOTE | 2018-09-03 14:12 | PN ---
Date/Time of Note Date/Time of Note DATE: 09/03/18 TIME: 14:10 Assessment/Plan VTE Prophylaxis Risk score (from Nsg)>0 risk: 3 SCD applied (from Nsg): Yes Pharmacological prophylaxis: LMWH Lines/Catheters IV Catheter Type (from Nrsg): Saline Lock Assessment/Plan Hospital Course Patient is taken to nuclear medicine for a stress test, according to RN patient continues to complains of persistent chest pain. Continue current care, telemetry monitoring, cardiology recommendations. Assessment/Plan -Chest pain, rule out acute coronary syndrome, troponin is negative x3, EF 55% per 2D echo, continue nitroglycerin, aspirin. Continue telemetry monitoring Dr. Marin is following in cardiology consultation. -Diabetes mellitus with diabetic neuropathy with hemoglobin A1c 8.7. Continue metformin, Tradjenta, NovoLog per mild algorithm sliding scale. -Hypertension -Hyperlipidemia -BPH Further recommendations based on clinical course. Plan of care discussed with Dr. Wilcox. Result Diagram: 09/02/18 0738 09/02/18 0738 Results 24hrs Laboratory Tests Test 09/02/18 17:01 09/02/18 21:18 09/02/18 21:20 09/03/18 02:09 Bedside Glucose 97 74 70 115 Test 09/03/18 07:38 09/03/18 10:05 09/03/18 11:13 Bedside Glucose 109 133 115 Exam/Review of Systems Exam Vitals Vital Signs Date Temp Pulse Resp B/P (MAP) Pulse Ox O2 O2 Flow FiO2 Time Delivery Rate 09/03/18 64 12:53 09/03/18 98.0 22 151/75 96 Room Air 07:36 (100) Intake and Output 09/02/18 09/02/18 09/03/18 1515:00 23:00 07:00 IntakeIntake Total 1200 ml 600 ml BalanceBalance 1200 ml 600 ml Results Results 24hrs Laboratory Tests Test 09/02/18 17:01 09/02/18 21:18 09/02/18 21:20 09/03/18 02:09 Bedside Glucose 97 74 70 115 Test 09/03/18 07:38 09/03/18 10:05 09/03/18 11:13 Bedside Glucose 109 133 115 Medications Medication Current Medications IV Flush (NS 3 ml) 3 ml PER PROTOCOL IV ; Start 09/01/18 at 20:30 Ondansetron HCl (Zofran Inj) 4 mg Q6H PRN IV NAUSEA/VOMITING; Start 09/01/18 at 20:30 Aspirin (Ecotrin) 325 mg DAILY PO Last administered on 09/03/18 08:53; Admin Dose 325 MG; Start 09/02/18 at 09:00 Nitroglycerin (Nitroglycerin (Sl Tab) 0.4 Mg) 1 tab Q5M PRN SL .CHEST PAIN Last administered on 09/01/18 22:10; Admin Dose 1 TAB; Start 09/01/18 at 20:30 Acetaminophen (Tylenol Tab) 650 mg Q6H PRN PO .PAIN 1-3 OR TEMP; Start 09/01/18 at 20:30 Ibuprofen (Motrin) 600 mg Q6H PRN PO .PAIN 1-3 OR TEMP; Start 09/01/18 at 20:30 Morphine Sulfate (morphine) 2 mg Q4H PRN IV .PAIN 7-10 Last administered on 09/03/18 07:17; Admin Dose 2 MG; Start 09/01/18 at 20:30 Zolpidem Tartrate (Ambien) 5 mg QHS PRN PO .INSOMNIA Last administered on 09/01 23:53; Admin Dose 5 MG; Start 09/01/18 at 20:30 Docusate Sodium (Colace) 100 mg Q12H PRN PO .CONSTIPATION Last administered on 09/03/18 10:13; Admin Dose 100 MG; Start 09/01/18 at 20:30 Magnesium Hydroxide (Milk Of Mag) 30 ml DAILY PRN PO .CONSTIPATION; Start 09/01/18 at 20:30 Famotidine (Pepcid) 20 mg Q12 PO Last administered on 09/03/18 08:53; Admin Dose 20 MG; Start 09/01/18 at 21:00 Enoxaparin Sodium (Lovenox) 30 mg DAILY SC Last administered on 09/03/18 08:57; Admin Dose 30 MG; Start 09/01/18 at 20:30 Alfuzosin HCl (Uroxatral) 10 mg QHS PO Last administered on 09/02/18 20:44; Admin Dose 10 MG; Start 09/01/18 at 21:00 Amlodipine Besylate (Norvasc) 10 mg DAILY PO Last administered on 09/03/18 08:53; Admin Dose 10 MG; Start 09/02/18 at 09:00 Empaglifozin (Jardiance) 10 mg DAILY PO Last administered on 09/02/18 08:27; Admin Dose 10 MG; Start 09/02/18 at 09:00 Finasteride (Proscar) 5 mg DAILY PO Last administered on 09/03/18 08:52; Admin Dose 5 MG; Start 09/02/18 at 09:00 Gabapentin (Neurontin) 300 mg QAM PO Last administered on 09/03/18 08:51; Admin Dose 300 MG; Start 09/02/18 at 09:00 Gabapentin (Neurontin) 600 mg QHS PO Last administered on 09/02/18 20:41; Admin Dose 600 MG; Start 09/01/18 at 21:00 Glipizide (Glucotrol) 10 mg AC BREAKFAST DINNER PO Last administered on 09/02/18 17:03; Admin Dose 10 MG; Start 09/02/18 at 07:00 Lisinopril (Zestril) 40 mg BID PO Last administered on 09/03/18 08:52; Admin Dose 40 MG; Start 09/01/18 at 21:00 Metformin HCl (Glucophage) 1,000 mg WITH BREAKFAST DINNE PO Last administered on 09/02/18 17:03; Admin Dose 1,000 MG; Start 09/02/18 at 07:55 Pantoprazole (Protonix Tab) 40 mg AC BREAKFAST PO Last administered on 09/03/18 07:17; Admin Dose 40 MG; Start 09/02/18 at 07:00 Senna (Senokot) 1 tab BID PO Last administered on 09/03/18 08:52; Admin Dose 1 TAB; Start 09/01/18 at 21:00 Miscellaneous Information 25 mg QHS PO ; Start 09/01/18 at 21:00; Status UNV Atorvastatin Calcium (Lipitor) 10 mg DAILY@21 PO Last administered on 09/02/18 20:40; Admin Dose 10 MG; Start 09/02/18 at 21:00 Diagnostic Test (Pha) (Accu-Chek) 1 ea AC MEALS AND BEDTIME XX ; Start 09/01/18 at 21:00 Miscellaneous Information 1 ea NOTE XX ; Start 09/01/18 at 22:30 Glucose (Glutose) 15 gm Q15M PRN PO DECREASED GLUCOSE; Start 09/01/18 at 22:30 Glucose (Glutose) 22.5 gm Q15M PRN PO DECREASED GLUCOSE; Start 09/01/18 at 22:30 Dextrose (D50w Syringe) 25 ml Q15M PRN IV DECREASED GLUCOSE; Start 09/01/18 at 22:30 Dextrose (D50w Syringe) 50 ml Q15M PRN IV DECREASED GLUCOSE; Start 09/01/18 at 22:30 Glucagon (Glucagen) 1 mg Q15M PRN IM DECREASED GLUCOSE; Start 09/01/18 at 22:30 Glucose (Glutose) 15 gm Q15M PRN BUCCAL DECREASED GLUCOSE; Start 09/01/18 at 22:30 Miscellaneous Information (*Order Clarification Bulletin) INSPRA IS NON FORMULARY...PLEASE CONSIDER AN OR... Q8H XX ; Start 09/02/18 at 22:30 AUDREY LAND Sep 03, 2018 14:12
--- NOTE | 2018-09-03 15:58 | CARRPT ---
DATE OF PROCEDURE: 09/03/2018 TYPE OF PROCEDURE: Lexiscan Cardiolite stress test, electrocardiogram portion. BASELINE VITAL SIGNS AND ELECTROCARDIOGRAM: Pulse 62, blood pressure 133/70. INDICATION: Chest pain, assess for ischemia. Baseline ECG normal sinus rhythm, rate of 62 with a block, secondary repolarization abnormaliti es. PROCEDURE: The patient underwent standard Lexiscan infusion protocol over 10 seconds followed by rad iotracer. The patient's test was stopped due to completion of protocol. Maximal achieved blood pres sure during the test, 121/69. Maximum heart rate during the test, 91. ELECTROCARDIOGRAM FINDINGS: The patient does not have any new Lexiscan-induced ST or T-wave changes from baseline abnormalities. No documented PVCs. SYMPTOMS: The patient complains of mild shortness of breath during stress testing, and no chest pain . IMPRESSION: 1. No Lexiscan-induced ST or T-wave changes from baseline abnormalities diagnostic for ischemia. 2. Complaints of shortness of breath during stress testing. No documented chest pain. 3. No documented premature ventricular contractions during stress test. 4. Report of nuclear images to follow in separate dictation. Dictated By: CADEN ROBERTSON/KAVITHA Conf#: [id number] DID#: [id number] CC: DONALDO KONG MD;*EndCC*
[2018-09-03] MEDS: ATORVASTATIN 10 MG TAB PO SCH (21:00)
[2018-09-03] MEDS: ALFUZOSIN (SR) 10 MG TAB PO SCH (21:01)
[2018-09-03] MEDS: ZOLPIDEM 5 MG TAB PO PRN (22:35)
[2018-09-04] VITALS: BP 125/69; PULSE 71; PULSE 82; RESP 19
[2018-09-04 04:00] VITALS: BP 131/64; PULSE 64; PULSE 76; RESP 18
[2018-09-04] MEDS: [UNRECOGNIZED DRUG - OTHER] XX SCH ×2 (06:11→14:30)
[2018-09-04] MEDS: ACCU-CHEK XX SCH ×2 (07:25→11:20)
[2018-09-04 07:35] VITALS: BP 144/72; PULSE 75; RESP 22
[2018-09-04 08:08] VITALS: PULSE 74
[2018-09-04] MEDS: PANTOPRAZOLE (EC) 40 MG TAB PO SCH (08:28)
[2018-09-04] MEDS: GABAPENTIN 300 MG CAP PO SCH (08:29)
[2018-09-04] MEDS: glipiZIDE 10 MG TAB PO SCH (08:29)
[2018-09-04] MEDS: FINASTERIDE 5 MG TAB PO SCH (08:29)
[2018-09-04] MEDS: SENNA TAB PO SCH (08:29)
[2018-09-04] MEDS: AMLODIPINE 10 MG TAB PO SCH (08:30)
[2018-09-04] MEDS: ASPIRIN (EC) 325 MG TAB PO SCH (08:30)
[2018-09-04] MEDS: DOCUSATE SODIUM 100 MG CAP PO PRN (08:30)
[2018-09-04] MEDS: EMPAGLIFLOZIN 10 MG TABLET PO SCH (08:30)
[2018-09-04] MEDS: LISINOPRIL 20 MG TAB PO SCH (08:31)
[2018-09-04] MEDS: ENOXAPARIN 30 MG/0.3 ML SYG SC SCH (08:36)
[2018-09-04] MEDS: metFORMIN 500 MG TAB PO SCH (08:44)
[2018-09-04] MEDS: morphine 2 MG INJ IV PRN (08:44)
[2018-09-04] MEDS: FAMOTIDINE 20 MG TAB PO SCH (08:44)
[2018-09-04 11:47] VITALS: BP 119/73; PULSE 89; RESP 22
[2018-09-04 12:11] VITALS: PULSE 85
--- NOTE | 2018-09-04 13:55 | PDOCDIS ---
Discharge Instructions CONDITION [id number] Patient Condition: [id number] Stable HOME CARE INSTRUCTIONS: [id number] Diet Instructions: [id number] Low Fat /Cholesterol ACTIVITY: [id number] Activity Restrictions: [id number] Slowly Increase Activity Rest between Activity Avoid heavy lifting No Sexual Activity Do not Drive Do not operate Machinery Do not operate Power Tool Avoid Heavy Housework [id number] Bathing Restrictions: [id number] FOLLOW UP/APPOINTMENTS Follow-up Plan fU with PMD X 1 WEEK FU with cardiology as recommended Call 911 or go to the ER IF symptoms get worse Patient verbalized understanding instructions. mari Wilcox/staff DORA LEARY Sep 04, 2018 13:55
--- NOTE | 2018-09-04 13:56 | PN ---
Date/Time of Note Date/Time of Note DATE: 09/04/18 TIME: 13:56 Assessment/Plan VTE Prophylaxis Risk score (from Ns)>0 risk: 3 SCD applied (from [facility]): No SCD contraindicated: other Pharmacological prophylaxis: other Pharm contraindication: other Lines/Catheters [facility]from [facility] Saline Lock Assessment/Plan Assessment/Plan -Chest pain, ruled out acute coronary syndrome; none at present - troponin is negative x3 -EF 55% per 2D echo, continue nitroglycerin, aspirin. -Continue telemetry monitoring - Dr. Marin is following in cardiology consultation. -Diabetes mellitus with diabetic neuropathy with hemoglobin A1c 8.7. - Continue metformin, Tradjenta, NovoLog per mild algorithm sliding scale. - Anemia- Hgb stable today -Hypertension -Hyperlipidemia -BPH Further recommendations based on clinical course. Plan of care discussed with dara turner. Patient seen in collaboration with Dr. Wilcox. Result Diagram: 09/02/18 0738 09/04/18 0605 Results 24hrs Laboratory Tests Test 09/03/18 17:18 09/03/18 20:56 09/04/18 06:05 09/04/18 07:37 Bedside Glucose 149 120 109 Sodium Level 140 Potassium Level 4.3 Chloride Level 105 Carbon Dioxide Level 24 Anion Gap 11 Blood Urea Nitrogen 24 H Creatinine 1.05 Est Glomerular Filtrat > 60 Rate mL/min Glucose Level 120 Calcium Level 9.4 Test 09/04/18 12:28 Bedside Glucose 137 Subjective 24 Hr Interval Summary Free Text/Dictation nad denies any chest pain feels better; would like to go home today no new issues reported last night dw staff Constitutional: improved Eyes: no complaints ENT: no complaints Cardiovascular: no complaints Gastrointestinal: no complaints Musculoskeletal: no complaints Skin: no complaints Neurologic: no complaints Endocrine: no complaints Lymphatic: no complaints Psychological: nl mood/affect Immunologic: no complaints Exam/Review of Systems Exam Vitals Vital Signs Date Temp Pulse Resp B/P (MAP) Pulse Ox O2 O2 Flow FiO2 Time Delivery Rate 09/04/18 85 12:11 09/04/18 98.0 22 119/73 96 Room Air 11:47 (88) Intake and Output 09/03/18 09/03/18 09/04/18 1515:00 23:00 07:00 IntakeIntake Total 1200 ml 1500 ml BalanceBalance 1200 ml 1500 ml Constitutional: alert, well developed Psych: nl mood/affect Head: atraumatic Eyes: nl lids, nl sclera ENMT: nl external ears & nose Neck: non-tender Respiratory: clear to auscultation Cardiovascular: nl pulses, other (s1s2) Gastrointestinal: soft, non-tender Musculoskeletal: nl extremities to inspection Extremities: normal pulses Neurological: nl speech, other (alert/awake) Skin: nl turgor Lymph: nontender Results Results 24hrs Laboratory Tests Test 09/03/18 17:18 09/03/18 20:56 09/04/18 06:05 09/04/18 07:37 Bedside Glucose 149 120 109 Sodium Level 140 Potassium Level 4.3 Chloride Level 105 Carbon Dioxide Level 24 Anion Gap 11 Blood Urea Nitrogen 24 H Creatinine 1.05 Est Glomerular Filtrat > 60 Rate mL/min Glucose Level 120 Calcium Level 9.4 Test 09/04/18 12:28 Bedside Glucose 137 Medications Medication Current Medications IV Flush (NS 3 ml) 3 ml PER PROTOCOL IV ; Start 09/01/18 at 20:30 Ondansetron HCl (Zofran Inj) 4 mg Q6H PRN IV NAUSEA/VOMITING; Start 09/01/18 at 20:30 Aspirin (Ecotrin) 325 mg DAILY PO Last administered on 09/04/18 08:30; Admin D ose 325 MG; Start 09/02/18 at 09:00 Nitroglycerin (Nitroglycerin (Sl Tab) 0.4 Mg) 1 tab Q5M PRN SL .CHEST PAIN Last administered on 09/01/18 22:10; Admin Dose 1 TAB; Start 09/01/18 at 20:30 Acetaminophen (Tylenol Tab) 650 mg Q6H PRN PO .PAIN 1-3 OR TEMP; Start 09/01/18 at 20:30 Ibuprofen (Motrin) 600 mg Q6H PRN PO .PAIN 1-3 OR TEMP; Start 09/01/18 at 20:30 Morphine Sulfate (morphine) 2 mg Q4H PRN IV .PAIN 7-10 Last administered on 09/04/18 08:44; Admin Dose 2 MG; Start 09/01/18 at 20:30 Zolpidem Tartrate (Ambien) 5 mg QHS PRN PO .INSOMNIA Last administered on 09/03/18 22:35; Admin Dose 5 MG; Start 09/01/18 at 20:30 Docusate Sodium (Colace) 100 mg Q12H PRN PO .CONSTIPATION Last administered on 09/04/18 08:30; Admin Dose 100 MG; Start 09/01/18 at 20:30 Magnesium Hydroxide (Milk Of Mag) 30 ml DAILY PRN PO .CONSTIPATION; Start 09/01/18 at 20:30 Famotidine (Pepcid) 20 mg Q12 PO Last administered on 09/04/18 08:44; Admin Dose 20 MG; Start 09/01/18 at 21:00 Enoxaparin Sodium (Lovenox) 30 mg DAILY SC Last administered on 09/04/18 08:36; Admin Dose 30 MG; Start 09/01/18 at 20:30 Alfuzosin HCl (Uroxatral) 10 mg QHS PO Last administered on 09/03/18 21:01; Admin Dose 10 MG; Start 09/01/18 at 21:00 Amlodipine Besylate (Norvasc) 10 mg DAILY PO Last administered on 09/04/18 08:30; Admin Dose 10 MG; Start 09/02/18 at 09:00 Empaglifozin (Jardiance) 10 mg DAILY PO Last administered on 09/04/18 08:30; Admin Dose 10 MG; Start 09/02/18 at 09:00 Finasteride (Proscar) 5 mg DAILY PO Last administered on 09/04/18 08:29; Admin Dose 5 MG; Start 09/02/18 at 09:00 Gabapentin (Neurontin) 300 mg QAM PO Last administered on 09/04/18 08:29; Admin Dose 300 MG; Start 09/02/18 at 09:00 Gabapentin (Neurontin) 600 mg QHS PO Last administered on 09/03/18 21:01; Admin Dose 600 MG; Start 09/01/18 at 21:00 Glipizide (Glucotrol) 10 mg AC BREAKFAST DINNER PO Last administered on 09/04/18 08:29; Admin Dose 10 MG; Start 09/02/18 at 07:00 Lisinopril (Zestril) 40 mg BID PO Last administered on 09/04/18 08:31; Admin Dose 40 MG; Start 09/01/18 at 21:00 Metformin HCl (Glucophage) 1,000 mg WITH BREAKFAST DINNE PO Last administered on 09/04/18at 08:44; Admin Dose 1,000 MG; Start 09/02/18 at 07:55 Pantoprazole (Protonix Tab) 40 mg AC BREAKFAST PO Last administered on 09/04/18at 08:28; Admin Dose 40 MG; Start 09/02/18 at 07:00 Senna (Senokot) 1 tab BID PO Last administered on 09/04/18at 08:29; Admin Dose 1 TAB; Start 09/01/18 at 21:00 Miscellaneous Information 25 mg QHS PO ; Start 09/01/18 at 21:00; Status UNV Atorvastatin Calcium (Lipitor) 10 mg DAILY@21 PO Last administered on 09/03/18at 21:00; Admin Dose 10 MG; Start 09/02/18 at 21:00 Diagnostic Test (Pha) (Accu-Chek) 1 ea AC MEALS AND BEDTIME XX ; Start 09/01/18 at 21:00 Miscellaneous Information 1 ea NOTE XX ; Start 09/01/18 at 22:30 Glucose (Glutose) 15 gm Q15M PRN PO DECREASED GLUCOSE; Start 09/01/18 at 22:30 Glucose (Glutose) 22.5 gm Q15M PRN PO DECREASED GLUCOSE; Start 09/01/18 at 22:30 Dextrose (D50w Syringe) 25 ml Q15M PRN IV DECREASED GLUCOSE; Start 09/01/18 at 22:30 Dextrose (D50w Syringe) 50 ml Q15M PRN IV DECREASED GLUCOSE; Start 09/01/18 at 22:30 Glucagon (Glucagen) 1 mg Q15M PRN IM DECREASED GLUCOSE; Start 09/01/18 at 22:30 Glucose (Glutose) 15 gm Q15M PRN BUCCAL DECREASED GLUCOSE; Start 09/01/18 at 22:30 Miscellaneous Information (*Order Clarification Bulletin) INSPRA IS NON FORMULARY...PLEASE CONSIDER AN OR... Q8H XX ; Start 09/02/18 at 22:30 DORA LEARY Sep 04, 2018 13:56
--- NOTE | 2018-09-04 14:11 | CONS ---
Assessment/Plan Assessment/Plan Hospital Course (Demo Recall) IMPRESSION: 1. Chest pain, assess for acute coronary syndrome.-neg trop x 3/NL EF by echo. Lexiscan with no ischemia/NL EF 2. Abnormal electrocardiogram, assess for acute coronary syndrome. 3. Hypertension, under reasonable control. 4. Dyslipidemia. 5. Diabetes mellitus. 6. Benign prostatic hypertrophy. Recc: -Tele -Continu asa/statin -Continue Norvasc/zestril -Add oral nitrates -Ok for d/c from cardiac standpoint with outpatient f/u Consultation Date/Type/Reason Admit Date/Time Sep 01, 2018 at 17:58 Initial Consult Date 09/01/18 Type of Consult Cardiology Reason for Consultation chest pain Requesting Provider: DONALDO KONG MD Date/Time of Note DATE: 09/04/18 TIME: 14:08 Exam/Review of Systems Vital Signs Vitals Vital Signs Date Temp Pulse Resp B/P (MAP) Pulse Ox O2 O2 Flow FiO2 Time Delivery Rate 09/04/18 85 12:11 09/04/18 98.0 22 119/73 96 Room Air 11:47 (88) Intake and Output 09/03/18 09/03/18 09/04/18 1515:00 23:00 07:00 IntakeIntake Total 1200 ml 1500 ml BalanceBalance 1200 ml 1500 ml Exam Exam Review of Systems: CONSTITUTIONAL: No fevers, chills. PULMONARY: No sob CARDIOVASCULAR: No chest pain/palpitations GASTROINTESTINAL: No nausea/vomiting. GENITOURINARY: No hematuria/dysuria. MUSCULOSKELETAL: No myagias/arthalgias. PSYCHIATRIC: The patient denies depression. NEUROLOGIC: No weakness Constitutional: alert Psych: no complaints Head: normocephalic ENMT: mucosa pink and moist Neck: supple, jvd (9 cm water) Respiratory: diminished breath sounds Cardiovascular: regular rate and rhythm Gastrointestinal: soft, non-tender Musculoskeletal: muscle tone (normal) Extremities: edema (none) Neurological: other (No focal deficits) Labs Result Diagram: 09/02/18 0738 09/04/18 0605 Results 24hrs Laboratory Tests Test 09/03/18 17:18 09/03/18 20:56 09/04/18 06:05 09/04/18 07:37 Bedside Glucose 149 120 109 Sodium Level 140 Potassium Level 4.3 Chloride Level 105 Carbon Dioxide Level 24 Anion Gap 11 Blood Urea Nitrogen 24 H Creatinine 1.05 Est Glomerular Filtrat > 60 Rate mL/min Glucose Level 120 Calcium Level 9.4 Test 09/04/18 12:28 Bedside Glucose 137 Medications Medications Current Medications IV Flush (NS 3 ml) 3 ml PER PROTOCOL IV ; Start 09/01/18 at 20:30 Ondansetron HCl (Zofran Inj) 4 mg Q6H PRN IV NAUSEA/VOMITING; Start 09/01/18 at 20:30 Aspirin (Ecotrin) 325 mg DAILY PO Last administered on 09/04/18 08:30; Admin Dose 325 MG; Start 09/02/18 at 09:00 Nitroglycerin (Nitroglycerin (Sl Tab) 0.4 Mg) 1 tab Q5M PRN SL .CHEST PAIN Last administered on 09/01/18 22:10; Admin Dose 1 TAB; Start 09/01/18 at 20:30 Acetaminophen (Tylenol Tab) 650 mg Q6H PRN PO .PAIN 1-3 OR TEMP; Start 09/01/18 at 20:30 Ibuprofen (Motrin) 600 mg Q6H PRN PO .PAIN 1-3 OR TEMP; Start 09/01/18 at 20:30 Morphine Sulfate (morphine) 2 mg Q4H PRN IV .PAIN 7-10 Last administered on 09/04/18 08:44; Admin Dose 2 MG; Start 09/01/18 at 20:30 Zolpidem Tartrate (Ambien) 5 mg QHS PRN PO .INSOMNIA Last administered on 09/03/18 22:35; Admin Dose 5 MG; Start 09/01/18 at 20:30 Docusate Sodium (Colace) 100 mg Q12H PRN PO .CONSTIPATION Last administered on 09/04/18 08:30; Admin Dose 100 MG; Start 09/01/18 at 20:30 Magnesium Hydroxide (Milk Of Mag) 30 ml DAILY PRN PO .CONSTIPATION; Start 09/01/18 at 20:30 Famotidine (Pepcid) 20 mg Q12 PO Last administered on 09/04/18 08:44; Admin Dose 20 MG; Start 09/01/18 at 21:00 Enoxaparin Sodium (Lovenox) 30 mg DAILY SC Last administered on 09/04/18 08:36; Admin Dose 30 MG; Start 09/01/18 at 20:30 Alfuzosin HCl (Uroxatral) 10 mg QHS PO Last administered on 09/03/18 21:01; Admin Dose 10 MG; Start 09/01/18 at 21:00 Amlodipine Besylate (Norvasc) 10 mg DAILY PO Last administered on 09/04/18 08:30; Admin Dose 10 MG; Start 09/02/18 at 09:00 Empaglifozin (Jardiance) 10 mg DAILY PO Last administered on 09/04/18 08:30; Admin Dose 10 MG; Start 09/02/18 at 09:00 Finasteride (Proscar) 5 mg DAILY PO Last administered on 09/04/18 08:29; Admin Dose 5 MG; Start 09/02/18 at 09:00 Gabapentin (Neurontin) 300 mg QAM PO Last administered on 09/04/18 08:29; Admin Dose 300 MG; Start 09/02/18 at 09:00 Gabapentin (Neurontin) 600 mg QHS PO Last administered on 09/03/18 21:01; Admin Dose 600 MG; Start 09/01/18 at 21:00 Glipizide (Glucotrol) 10 mg AC BREAKFAST DINNER PO Last administered on 09/04/18 08:29; Admin Dose 10 MG; Start 09/02/18 at 07:00 Lisinopril (Zestril) 40 mg BID PO Last administered on 09/04/18 08:31; Admin Dose 40 MG; Start 09/01/18 at 21:00 Metformin HCl (Glucophage) 1,000 mg WITH BREAKFAST DINNE PO Last administered on 09/04/18 08:44; Admin Dose 1,000 MG; Start 09/02/18 at 07:55 Pantoprazole (Protonix Tab) 40 mg AC BREAKFAST PO Last administered on 09/04/18 08:28; Admin Dose 40 MG; Start 09/02/18 at 07:00 Senna (Senokot) 1 tab BID PO Last administered on 09/04/18 08:29; Admin Dose 1 TAB; Start 09/01/18 at 21:00 Miscellaneous Information 25 mg QHS PO ; Start 09/01/18 at 21:00; Status UNV Atorvastatin Calcium (Lipitor) 10 mg DAILY@21 PO Last administered on 09/03/18at 21:00; Admin Dose 10 MG; Start 09/02/18 at 21:00 Diagnostic Test (Pha) (Accu-Chek) 1 ea AC MEALS AND BEDTIME XX ; Start 09/01/18 at 21:00 Miscellaneous Information 1 ea NOTE XX ; Start 09/01/18 at 22:30 Glucose (Glutose) 15 gm Q15M PRN PO DECREASED GLUCOSE; Start 09/01/18 at 22:30 Glucose (Glutose) 22.5 gm Q15M PRN PO DECREASED GLUCOSE; Start 09/01/18 at 22:30 Dextrose (D50w Syringe) 25 ml Q15M PRN IV DECREASED GLUCOSE; Start 09/01/18 at 22:30 Dextrose (D50w Syringe) 50 ml Q15M PRN IV DECREASED GLUCOSE; Start 09/01/18 at 22:30 Glucagon (Glucagen) 1 mg Q15M PRN IM DECREASED GLUCOSE; Start 09/01/18 at 22:30 Glucose (Glutose) 15 gm Q15M PRN BUCCAL DECREASED GLUCOSE; Start 09/01/18 at 22:30 Miscellaneous Information (*Order Clarification Bulletin) INSPRA IS NON FORMULARY...PLEASE CONSIDER AN OR... Q8H XX ; Start 09/02/18 at 22:30 CADEN SARABIA Sep 04, 2018 14:11
--- NOTE | 2018-09-04 18:03 | DS ---
Date/Time of Note Date/Time of Note DATE: 09/04/18 TIME: 18:03 Discharge Summary Admission/Discharge Info Admit Date/Time Sep 01, 2018 at 17:58 Discharge Date/Time Sep 04, 2018 at 15:50 Discharge Diagnosis -Chest pain, ruled out acute coronary syndrome; none at present ; troponin is negative x3; EF 55% per 2D echo, continue nitroglycerin, aspirin. -Diabetes mellitus with diabetic neuropathy with hemoglobin A1c 8.7. - Anemia -Hypertension -Hyperlipidemia -BPH Patient Condition: Stable Hospital Course The patient is a 62-year-old male with history of hypertension, diabetes with diabetic neuropathy, hypercholesterolemia, GOUT, and BPH. Patient stated that he has been treated for bronchitis recently. Patient reported ongoing midsternal chest pain - for the last 2 weeks with no radiation to the shoulder or back, with no exacerbating or elevating factors. Patient was seen at primary care physician office and underwent twelve-lead EKG which was abnormal and noted ST segment elevation elevation. Patient troponin negative, twelve-lead EKG revealed sinus rhythm with no ST segment elevation or depression. Patient was admitted for further evaluation and management. Constitutional: nad, vss alert, well developed Psych: nl mood/affect Head: atraumatic Eyes: nl lids, nl sclera ENMT: nl external ears & nose Neck: non-tender Respiratory: clear to auscultation Cardiovascular: nl pulses, other (s1s2) Gastrointestinal: soft, non-tender Musculoskeletal: nl extremities to inspection Extremities: normal pulses Neurological: nl speech, other (alert/awake) Skin: nl turgor Lymph: nontender When stable; patient is cleared by cardiology to discharge home. Patient is discharged in a stable condition. Patient seen in collaboration with Dr. Wilcox. Home Meds Active Scripts Benzonatate* (Tessalon Perle*) 100 Mg Capsule, 100 MG PO Q8H PRN for COUGH, #30 CAP Prov:LNIDA ESTRADA PA-C 08/26/18 Dextromethorphan Hb-Promethazine Hcl* (Promethazine DM* Syrup) 473 Ml Syrup, 5 ML PO Q6 PRN for COUGH, #100 ML Prov:LINDA ESTRADA PA-C 08/26/18 Reported Medications Eplerenone (Inspra) 25 Mg Tablet, 25 MG PO QHS, TAB 09/01/18 Gabapentin* (Gabapentin*) 300 Mg Capsule, 600 MG PO QHS, #180 CAP 09/01/18 Gabapentin* (Gabapentin*) 300 Mg Capsule, 300 MG PO QAM, #60 CAP 09/01/18 Empagliflozin (Jardiance) 10 Mg Tablet, 10 MG PO DAILY, TAB 09/01/18 Metformin Hcl* (Metformin Hcl*) 1,000 Mg Tablet, 1000 MG PO WITH BREAKFAST DINNE, #60 TAB 09/01/18 Sennosides* (Senna Lax*) 8.6 Mg Tablet, 1 TAB PO BID, TAB 09/01/18 Pantoprazole* (Pantoprazole*) 40 Mg Tablet.dr, 40 MG PO AC BREAKFAST, TAB 09/01/18 Lovastatin* (Lovastatin*) 10 Mg Tablet, 10 MG PO HS, TAB 09/01/18 Lisinopril* (Lisinopril*) 40 Mg Tablet, 40 MG PO BID, #30 TAB 09/01/18 Glipizide* (Glipizide*) 10 Mg Tablet, 10 MG PO AC BREAKFAST DINNER, TAB 09/01/18 Finasteride* (Finasteride*) 5 Mg Tablet, 5 MG PO DAILY, TAB 09/01/18 Docusate Sodium* (Colace*) 100 Mg Capsule, 100 MG PO BID, #60 CAP 09/01/18 Amlodipine Besylate* (Amlodipine Besylate*) 10 Mg Tablet, 10 MG PO DAILY, #30 TAB 09/01/18 Alfuzosin Hcl* (Alfuzosin Hcl*) 10 Mg Tab.er.24h, 10 MG PO QHS, #30 TAB.SA 09/01/18 Follow-up Plan fU with PMD X 1 WEEK FU with cardiology as recommended Call 911 or go to the ER IF symptoms get worse Patient verbalized understanding instructions. mari Wilcox/staff Primary Care Provider Simone Kim Pending Labs Laboratory Tests Test 09/03/18 20:56 09/04/18 06:05 09/04/18 07:37 09/04/18 12:28 Bedside 120 109 137 Glucose mg/dL (70-220) mg/dL (70-220) mg/dL (70-220) Sodium Level 140 mmol/L (135-14 4) Potassium 4.3 Level mmol/L (3.5-5. 1) Chloride Level 105 mmol/L (97-110 ) Carbon Dioxide 24 Level mmol/L (21-31) Anion Gap 11 (5-13) Blood Urea 24 Nitrogen mg/dl (7-20) Creatinine 1.05 mg/dl (0.61-1. 24) Est Glomerular > 60 Filtrat mL/min (>60) Rate mL/min Glucose Level 120 mg/dl (70-220) Calcium Level 9.4 mg/dl (8.4-10. 2) DORA LEARY Sep 04, 2018 18:03
[2018-09-05] MEDS ORDERED: ISOSORBIDE MONONITRATE(SR)30 MG TAB PO SCH (09:00)
--- NOTE | 2018-09-10 13:26 | RADRPT ---
Vent Rate: 65 bpm RR Interval: 0 msec TX Interval: 168 msec QRS Duration: 108 msec QT Interval: 402 msec QTC Interval: 418 msec P-R-T Hilbert: 52 - 3 - 42 degrees Normal sinus rhythm Incomplete right bundle branch block Minimal voltage criteria for LVH, may be normal variant Borderline ECG Electronically Signed By: Saúl Astudillo
== END 2018-09-04 15:50 | disposition home or self-care (01) ==
LOC: E/R 15:59 → TEL 17:58
PROVIDERS: ADMIT Internal Medicine; ATTEND Internal Medicine
DX: R07.9 Chest pain, unspecified (principal); I10 Essential (primary) hypertension; Z79.84 Long term (current) use of oral hypoglycemic drugs; E11.40 Type 2 diabetes mellitus with diabetic neuropathy, unspecified; E78.5 Hyperlipidemia, unspecified; E78.00 Pure hypercholesterolemia, unspecified; M10.9 Gout, unspecified; D64.9 Anemia, unspecified; N40.0 Benign prostatic hyperplasia without lower urinary tract symptoms
CPT/HCPCS: 36415; 71045; 78452; 80048; 80053; 80061; 82550; 82553; 82962; 83036; 83690; 83735; 83880; 84484; 85025; 85610; 85730; 93005; 93017; 93306; 99285; A9500; A9505; G0378; J1650; J2270; J2785

== ENCOUNTER 2018-09-24 07:11 | Day surgery (SDC) | payer MEDICARE, MEDICAID ==
[~2018-09-24] VITALS: Ht 172.7 cm; Wt 94.0 kg
[2018-09-24] VITALS (24 sets, daily range): BP systolic 91–154; BP diastolic 43–112; PULSE 60–80; RESP 14–18; Ht 172.7 cm; Wt 94.0 kg
[~2018-09-24 07:11] MED LIST changes: -AZIT250T PO; -CYCL10TA7 PO; +EMPA10TA PO; +EPLE25TA PO; -FER325 PO; -HYDR-4011 PO; +METF100010 PO; -SITA1TAB5 PO; -UDMYL PO
[2018-09-24] MEDS ORDERED: FAMOTIDINE 20 MG TAB PO ONE (08:30)
[2018-09-24] MEDS ORDERED: DIAZEPAM 5 MG TAB PO ONE (08:30)
[2018-09-24] MEDS ORDERED: DIPHENHYDRAMINE 50 MG CAP PO ONE (08:30)
[2018-09-24] MEDS ORDERED: ISOS30TA67 PO (08:32)
[2018-09-24] MEDS ORDERED: HEPARIN 1000 UNITS/ML 10 ML INJ ONE (09:10)
[2018-09-24] MEDS ORDERED: NITROGLYCERIN (IC) 100 MCG/ML INJ ONE (09:11)
[2018-09-24] MEDS ORDERED: MIDAZOLAM 1 MG/ML 2 ML INJ ONE (09:11)
[2018-09-24] MEDS ORDERED: VERAPAMIL 5 MG INJ ONE (09:11)
[2018-09-24] MEDS ORDERED: FENTAnyl 50 MCG/ML VIAL ONE (09:11)
[2018-09-24] MEDS ORDERED: SOD CHLORIDE 0.9% 1,000 ML IV SCH (11:25)
--- NOTE | 2018-09-24 11:25 | SIPON ---
Date/Time of Note Date/Time of Note DATE: 09/24/18 TIME: 11:24 Operative Report Preoperative Diagnosis 1.chest pain Postoperative Diagnosis 1.nonobstructive cad Operation/Procedure Performed 1.[facility] Surgeon see signature line social science research assistant 1.Roverto 2.Yossi Anesthesia: moderate sedation Estimated blood loss: minimal Transfusion Required none Specimen none Grafts/Implants none Complications none CADEN SARABIA Sep 24, 2018 11:25
[2018-09-24] MEDS ORDERED: LIDOCAINE 1% (MDV) 20 ML INJ ONE (11:27)
[2018-09-24] MEDS ORDERED: IODIXANOL LOCM 100 ML BTL ONE (11:27)
[2018-09-24] MEDS ORDERED: ONDANSETRON 4 MG INJ IV PRN (11:30)
[2018-09-24] MEDS ORDERED: morphine 2 MG INJ IV PRN (11:30)
[2018-09-24] MEDS ORDERED: AL HYDROX/MG HYDROX/SIMETH 30 ML CUP PO PRN (11:30)
[2018-09-24] MEDS ORDERED: ACETAMINOPHEN 325 MG TAB PO PRN (11:30)
--- NOTE | 2018-09-24 14:39 | CARRPT ---
DATE OF PROCEDURE: 09/24/2018 TYPE OF PROCEDURES: 1. Left heart catheterization. 2. Coronary angiography. 3. Measurement of left ventricular end diastolic pressure. 4. Moderate conscious sedation. ATTENDING PHYSICIAN: Caden Marin MD REFERRING PHYSICIAN: Self-referred. INDICATION: Chest pain refractory to medical therapy. TYPE OF ANESTHESIA: Conscious and local. BRIEF HISTORY AND HOSPITAL COURSE: Mr. Paz is a 62-year-old male with history of hypertension, dys lipidemia and diabetes mellitus, who initially presented with complaints of substernal chest pain, un derwent cardiac stress test revealing no significant ischemia and normal EF. He was placed on ascend ing medical therapy, but continued to have chest pain, brought to cardiac laboratory miller in order to defini tively rule out false negative cardiac stress test. DESCRIPTION OF PROCEDURE: After informed consent was obtained, the patient was brought to the [facility] cardiac catheterization lab where his right radial area was prepped and draped in sterile fashion. A 2% lidocaine was infiltrated into right radial area in order to achieve adequ ate anesthesia. Using modified Seldinger technique, the right radial artery was cannulated and a 6-F rench arterial sheath was placed. A 6-Kittitian JL3.5 catheter was used to cannulate the left main kaela nary ostium. With contrast injection, multiple views of the left coronary system were obtained. JL3 .5 was removed a guidewire and a JR4 was used to cannulate the right coronary arterial ostium. With contrast injection, multiple views of the right coronary artery were obtained. JR4 was removed over a guidewire, but before removal additionally used across the aortic valve placed in LV. LVEDP was me asure and pulled back across the aortic valve to assess for significant gradient which there was not. Subsequently once the catheter was removed, the patient's sheath was removed. TR band was applied. This completed the procedure. There were no noted complications. FINDINGS: Coronary angiography: Left main is 4 mm, no significant focal stenosis. Circumflex proxi linda is 3.5 mm vessel and in its mid portion has approximately 40% stenosis and is a codominant vess el and therefore gives off a left-sided PDA 3 mm with no significant focal stenoses. The mid branch obtuse marginal is 2 mm, no significant focal stenoses and a proximal branching obtuse marginal is gordon b 1.5 mm vessel. The LAD proximally is a 3 mm vessel and has luminal irregularities of approximately 20% to 30%. In the mid portion of the LAD, there are mild luminal irregularities of 10% to 20%. Th ere is a proximal branching diagonal of 2 mm and mid distal branching diagonal is sub 2 mm vessel, ea ch with no significant focal stenoses. The right coronary artery proximally is a 3.5 mm vessel and i s free of any significant focal stenoses throughout in its entirety. It is a codominant vessel, give s off a 2 mm PDA and a 2.5 mm posterolateral branch with no significant focal stenoses. Measurement of left ventricular end-diastolic pressure of 12 to 13. No significant aortic stenosis b y gradient. TOTAL FLUOROSCOPY TIME: 3.5 minutes. TOTAL CONTRAST: 70 mL. IMPRESSION: 1. Moderate nonobstructive coronary artery disease primarily involving the moderate nonobstructive l esion in patient's circumflex vessel. 2. Normal left heart filling pressures. 3. No significant aortic stenosis by gradient. RECOMMENDATIONS: In light of procedure findings, we would: 1. Maximize medical management. 2. Aggressive risk factor reduction. 3. The patient will be readmitted to the same day surgery center for post catheterization observatio n and continued management of symptoms with probable discharge later this afternoon. Dictated By: CADEN ROBERTSON/KAVITHA Conf#: [id number] DID#: [id number]
== END 2018-09-24 16:30 | disposition home or self-care (01) ==
LOC: SDS 07:11 → CCL 07:11
PROVIDERS: ATTEND Internal Medicine
DX: I25.10 Atherosclerotic heart disease of native coronary artery without angina pectoris (principal); I10 Essential (primary) hypertension; E78.5 Hyperlipidemia, unspecified; E11.9 Type 2 diabetes mellitus without complications; Z79.82 Long term (current) use of aspirin; Z79.84 Long term (current) use of oral hypoglycemic drugs
CPT/HCPCS: 71045; 80053; 80061; 82962; 85025; 85610; 85730; 93005; 93458; C1887; J1644; J2250; J3010; Q9967

== ENCOUNTER 2018-11-06 15:22 | Emergency (ER) | payer MEDICARE, OTHER ==
[~2018-11-06] VITALS: Wt 105.0 kg
[~2018-11-06 15:22] MED LIST changes: -BENZ-6 PO; -D-ME473S2 PO; +ISOS30TA67 PO
[2018-11-06 15:28] VITALS: BP 124/58; PULSE 78; RESP 18
[2018-11-06] MEDS ORDERED: MAGN400O19 PO (17:43)
[2018-11-06] MEDS ORDERED: IBUP-1542 PO (17:43)
[2018-11-06] MEDS ORDERED: FLUC100T39 PO (17:44)
[2018-11-06] MEDS ORDERED: POLY17PO6 PO (17:47)
--- NOTE | 2018-11-06 17:51 | ERD ---
ER Documentation Chief Complaint Chief Complaint DYSURIA X 1 MONTH HPI 62-year-old male presents with urinary urgency or difficulty initiating a stream for the last 3 weeks. Has no pippa dysuria denies hematuria. He was seen by his primary doctor who diagnosed him with possible prostate enlargement and he was initiated on Flomax. He has no fevers, vomiting, chest pain or shortness of breath. He has mild low back pain as well he denies flank pain. He is able to urinate although he believes he has to strain to urinate. He may have a history of constipation. ROS All systems reviewed and are negative except as per history of present illness. Medications Home Meds Active Scripts Polyethylene Glycol* (Miralax*) 17 Gm Powd.pack, 17 GM PO DAILY, #15 Prov:TEVIN BRAY MD 11/06/18 Fluconazole* (Fluconazole*) 100 Mg Tablet, 100 MG PO DAILY, #1 TAB Prov:TEVIN BRAY MD 11/06/18 Ibuprofen* (Motrin*) 600 Mg Tab, 600 MG PO Q6, #20 TAB Prov:TEVIN BRAY MD 11/06/18 Reported Medications Isosorbide Mononitrate* (Isosorbide Mononitrate*) 30 Mg Tab.er.24h, 30 MG PO DAILY, TAB 09/24/18 Eplerenone (Inspra) 25 Mg Tablet, 25 MG PO QHS, TAB 09/01/18 Gabapentin* (Gabapentin*) 300 Mg Capsule, 600 MG PO QHS, #180 CAP 09/01/18 Gabapentin* (Gabapentin*) 300 Mg Capsule, 300 MG PO QAM, #60 CAP 09/01/18 Empagliflozin (Jardiance) 10 Mg Tablet, 10 MG PO DAILY, TAB 09/01/18 Metformin Hcl* (Metformin Hcl*) 1,000 Mg Tablet, 1000 MG PO WITH BREAKFAST DINNE, #60 TAB 09/01/18 Sennosides* (Senna Lax*) 8.6 Mg Tablet, 1 TAB PO BID, TAB 09/01/18 Pantoprazole* (Pantoprazole*) 40 Mg Tablet.dr, 40 MG PO AC BREAKFAST, TAB 09/01/18 Lovastatin* (Lovastatin*) 10 Mg Tablet, 10 MG PO HS, TAB 09/01/18 Lisinopril* (Lisinopril*) 40 Mg Tablet, 40 MG PO BID, #30 TAB 09/01/18 Glipizide* (Glipizide*) 10 Mg Tablet, 10 MG PO AC BREAKFAST DINNER, TAB 09/01/18 Finasteride* (Finasteride*) 5 Mg Tablet, 5 MG PO DAILY, TAB 09/01/18 Docusate Sodium* (Colace*) 100 Mg Capsule, 100 MG PO BID, #60 CAP 09/01/18 Amlodipine Besylate* (Amlodipine Besylate*) 10 Mg Tablet, 10 MG PO DAILY, #30 TAB 09/01/18 Alfuzosin Hcl* (Alfuzosin Hcl*) 10 Mg Tab.er.24h, 10 MG PO QHS, #30 TAB.SA 09/01/18 Discontinued Scripts Magnesium Hydroxide* (Milk Of Magnesia*) 400 Mg/5 Ml Oral.susp, 30 ML PO BID for 10 Days, ML Prov:TEVIN BRAY MD 11/06/18 Allergies Allergies: Coded Allergies: allopurinol (Verified Allergy, Unknown, ITCHING, NAUSEA, 09/24/18) PMhx/Soc History of Surgery: No (BACK NECK KNEE APPENDECTOMY) Anesthesia Reaction: No Hx Neurological Disorder: No Hx Respiratory Disorders: No Hx Cardiac Disorders: No Hx Psychiatric Problems: No Hx Miscellaneous Medical Probl: No Hx Alcohol Use: No Hx Substance Use: No Hx Tobacco Use: No Smoking Status: Never smoker FmHx Family History: No diabetes, No coronary disease, No other Physical Exam Vitals Vital Signs Date Temp Pulse Resp B/P (MAP) Pulse Ox O2 O2 Flow FiO2 Time Delivery Rate 11/06/18 98.1 78 18 124/58 99 15:28 (80) Physical Exam Const: No acute distress. Morbidly obese. Head: Atraumatic Eyes: Normal Conjunctiva ENT: Normal External Ears, Nose and Mouth. Neck: Full range of motion. No meningismus. Resp: Clear to auscultation bilaterally Cardio: Regular rate and rhythm, no murmurs Abd: Soft, non tender, non distended. Normal bowel sounds. Slight irritation of the glans penis. No erythema, induration. No discharge. Testicles nontender normal size bilaterally. Skin: No petechiae or rashes Back: No midline or flank tenderness Ext: No cyanosis, or edema Neur: Awake and alert Psych: Normal Mood and Affect Results 24 hrs Laboratory Tests Test 11/06/18 15:59 11/06/18 16:20 Bedside Urine pH (LAB) 5.5 Bedside Urine Protein (LAB) Negative Bedside Urine Glucose (UA) 0.50% Bedside Urine Ketones (LAB) Negative Bedside Urine Blood Negative Bedside Urine Nitrite (LAB) Negative Bedside Urine Leukocyte Esterase (L Negative Urine Color YELLOW Urine Clarity CLEAR Urine pH 5.0 Urine Specific [place] 1.015 Urine Ketones NEGATIVE mg/dL Urine Nitrite NEGATIVE mg/dL Urine Bilirubin NEGATIVE mg/dL Urine Urobilinogen NEGATIVE mg/dL Urine Leukocyte Esterase NEGATIVE Coco/ul Urine Hemoglobin NEGATIVE mg/dL Urine Glucose 3+ mg/dL Urine Total Protein NEGATIVE mg/dl Procedures/MDM Shows glucose without leukocytes, nitrites, additional acute abnormalities. Given the suprapubic pain of uncertain etiology concern for additional condition such as diverticulitis CT abdomen pelvis was performed shows some nonspecific thickening of bladder correlate with cystitis. He does have constipation noted on CT scan. Patient presents with history of difficulty urinating over the last month. He has no current signs of urinary retention. He has no signs of acute abdomen, appendicitis, diverticulitis. He has no signs of UTI. He does have constipation which may be contributing to his symptoms of urinary urgency. We will treat with MiraLAX, ibuprofen, Diflucan for possible balanitis given his history of diabetes as cause of symptoms. He is advised to follow with primary doctor. Return for fevers, vomiting, inability urinate, new worsening symptoms or as directed. The patient was stable with no new complaints during the ER course. Clinically, there is no current evidence to suggest meningitis, sepsis, acute abdomen, pneumonia, stroke, acute coronary syndrome, pulmonary embolism, aortic dissection or any other emergent condition appearing to require further evaluation or hospitalization. Patient counseled regarding my diagnostic impression and care plan. Prior to discharge all questions answered. Pt agrees with treatment plan and understands strict return precautions. Pt is instructed to follow up with primary care provider within 24-48 hours. Precautionary instructions provided including instructions to return to the ER if not improving or for any worsening or changing symptoms or concerns. Disclaimer: Inadvertent spelling and grammatical errors are likely due to EHR/dictation software use and do not reflect on the overall quality of patient care. Also, please note that the electronic time recorded on this note does not necessarily reflect the actual time of the patient encounter. Departure Diagnosis: Primary Impression: Dysuria Condition: Stable Patient Instructions: Dysuria Referrals: WILL BARNETT (PCP) VERITO GRIFFIN MD Additional Instructions: no hay infeccion en orina. hay estrenemiento. Va al gordon doctor/ specialista para mas evaluacon en el proximo semana. posiblemente necesita autorizado de gordon doctor primario para specialista. Regresa para fiebre, o mas o nueva simptomas. TEVIN BRAY MD Nov 06, 2018 17:51
== END 2018-11-06 17:54 | disposition home or self-care (01) ==
LOC: FTE 15:22
DX: R30.0 Dysuria (principal); Z79.84 Long term (current) use of oral hypoglycemic drugs
CPT/HCPCS: 74176; 81003

== ENCOUNTER 2018-12-16 11:33 | Emergency (ER) | payer MEDICARE ==
[~2018-12-16] VITALS: Wt 94.5 kg
[~2018-12-16 11:33] MED LIST changes: +ESCI20TA38 PO; +FAMO40OR2 PO; +FER325 PO; +FLUC100T39 PO; +IBUP-1542 PO; +METH150T PO; +MIRT15TA5 PO; +POLY17PO6 PO; +SERT50TA6 PO; +SIME125C79 PO
[2018-12-16 11:37] VITALS: BP 120/59; PULSE 90; RESP 20
--- NOTE | 2018-12-16 12:42 | ERD ---
ER Documentation Chief Complaint Chief Complaint r. eye redness to sclera HPI 63-year-old male presenting with redness to the right eye. Patient states that this started yesterday. He had a mild headache. Denies any vomiting. Feels mildly dizzy. He states his symptoms have improved since yesterday. He has not taken any medications. He denies any visual changes. Denies any use of contacts or glasses. Denies medical problems. NKDA. Surgical history denies. Social history denies ROS All systems reviewed and are negative except as per history of present illness. Medications Home Meds Active Scripts Polyethylene Glycol* (Miralax*) 17 Gm Powd.pack, 17 GM PO DAILY, #15 Prov:TEVIN BRAY MD 11/06/18 Fluconazole* (Fluconazole*) 100 Mg Tablet, 100 MG PO DAILY, #1 TAB Prov:TEVIN BRAY MD 11/06/18 Ibuprofen* (Motrin*) 600 Mg Tab, 600 MG PO Q6, #20 TAB Prov:TEVIN BRAY MD 11/06/18 Reported Medications Isosorbide Mononitrate* (Isosorbide Mononitrate*) 30 Mg Tab.er.24h, 30 MG PO DAILY, TAB 09/24/18 Eplerenone (Inspra) 25 Mg Tablet, 25 MG PO QHS, TAB 09/01/18 Gabapentin* (Gabapentin*) 300 Mg Capsule, 600 MG PO QHS, #180 CAP 09/01/18 Gabapentin* (Gabapentin*) 300 Mg Capsule, 300 MG PO QAM, #60 CAP 09/01/18 Empagliflozin (Jardiance) 10 Mg Tablet, 10 MG PO DAILY, TAB 09/01/18 Metformin Hcl* (Metformin Hcl*) 1,000 Mg Tablet, 1000 MG PO WITH BREAKFAST DINNE, #60 TAB 09/01/18 Sennosides* (Senna Lax*) 8.6 Mg Tablet, 1 TAB PO BID, TAB 09/01/18 Pantoprazole* (Pantoprazole*) 40 Mg Tablet.dr, 40 MG PO AC BREAKFAST, TAB 09/01/18 Lovastatin* (Lovastatin*) 10 Mg Tablet, 10 MG PO HS, TAB 09/01/18 Lisinopril* (Lisinopril*) 40 Mg Tablet, 40 MG PO BID, #30 TAB 09/01/18 Glipizide* (Glipizide*) 10 Mg Tablet, 10 MG PO AC BREAKFAST DINNER, TAB 09/01/18 Finasteride* (Finasteride*) 5 Mg Tablet, 5 MG PO DAILY, TAB 09/01/18 Docusate Sodium* (Colace*) 100 Mg Capsule, 100 MG PO BID, #60 CAP 09/01/18 Amlodipine Besylate* (Amlodipine Besylate*) 10 Mg Tablet, 10 MG PO DAILY, #30 TAB 09/01/18 Alfuzosin Hcl* (Alfuzosin Hcl*) 10 Mg Tab.er.24h, 10 MG PO QHS, #30 TAB.SA 09/01/18 Allergies Allergies: Coded Allergies: allopurinol (Verified Allergy, Unknown, ITCHING, NAUSEA, 09/24/18) PMhx/Soc History of Surgery: No (BACK NECK KNEE APPENDECTOMY) Anesthesia Reaction: No Hx Neurological Disorder: No Hx Respiratory Disorders: No Hx Cardiac Disorders: Yes (HTN) Hx Psychiatric Problems: No Hx Miscellaneous Medical Probl: No Hx Alcohol Use: No Hx Substance Use: No Hx Tobacco Use: No FmHx Family History: No diabetes, No coronary disease, No other Physical Exam Vitals Vital Signs Date Temp Pulse Resp B/P (MAP) Pulse Ox O2 O2 Flow FiO2 Time Delivery Rate 12/16/18 99.0 90 20 120/59 98 11:37 (79) Physical Exam GENERAL: The patient is well-appearing, well-nourished, in no acute distress HEENT: Atraumatic. Conjunctivae are pink. Pupils equal, round, and reactive to light. There is no scleral icterus. Tympanic membranes clear bilaterally. Oropharynx clear. Injection noted to the right lateral eyeball CHEST: Clear to auscultation bilaterally. There are no rales, wheezes or rhonchi. HEART: Regular rate and rhythm. No murmurs, clicks, rubs or gallops. No S3 or S4. SKIN: There is no apparent rash or petechiae. The skin is warm and dry. Procedures/MDM DM: 63-year-old male presenting with findings of some conjunctival hemorrhage. I have low suspicion for intracranial hemorrhage or neuro deficit. I have low suspicion for visual deficit. Patient does have some blood noted in the sclera of the right lateral eye. Visual exam is within normal limits and ocular exam is within normal limits. Neuro exam is within normal limits. Patient is nontoxic-appearing. Vitals are stable. Patient is discharged with strict ER precautions and told to follow-up with primary care within 1 to 2 days for close evaluation. Patient is told symptoms change or worsen to return immediately to the ER. All questions answered at discharge Departure Diagnosis: Primary Impression: Subconjunctival hemorrhage Condition: Stable Patient Instructions: Subconjunctival Hemorrhage Additional Instructions: FOLLOW UP WITH YOUR PRIMARY CARE PHYSICIAN TOMORROW.Return to this facility if you are not improving as expected. LINDA ESTRADA PA-C Dec 16, 2018 12:42
== END 2018-12-16 13:00 | disposition home or self-care (01) ==
LOC: FTE 11:33
DX: H11.31 Conjunctival hemorrhage, right eye (principal); I10 Essential (primary) hypertension; Z79.84 Long term (current) use of oral hypoglycemic drugs
CPT/HCPCS: 99283

== ENCOUNTER 2019-01-04 06:48 | Day surgery (SDC) | payer MEDICARE ==
[2019-01-04] VITALS (10 sets, daily range): BP systolic 99–159; BP diastolic 57–89; PULSE 55–68; RESP 14–21; Ht 170.2 cm; Wt 90.8 kg
[~2019-01-04] VITALS: Ht 170.2 cm; Wt 90.8 kg
--- NOTE | 2019-01-04 09:49 | PREAC ---
Date/Time of Note Date/Time of Note DATE: 01/04/19 TIME: 09:47 Anesthesia Eval and Record Evaluation Time Pre-Procedure Interview DATE: 01/04/19 TIME: 09:47 Age 63 Sex male NPO: 8 hrs Preoperative diagnosis HISTORY OF COLON POLYP Planned procedure COLONOSCOPY WITH BIOPSIES Past Medical History Past Medical History: Includes Cardio: HTN, Dyslipidemia Endo: Diabetes GI: Obesity Surgery & Anesthesia Issues No known issue Meds Anticoagulation: No Beta Tala within 24 hr: No Reason Beta Tala not given: Pt. not on B-Tala Active Scripts Polyethylene Glycol* (Miralax*) 17 Gm Powd.pack, 17 GM PO DAILY, #15 Prov:TEVIN BRAY MD 11/06/18 Fluconazole* (Fluconazole*) 100 Mg Tablet, 100 MG PO DAILY, #1 TAB Prov:TEVIN BRAY MD 11/06/18 Ibuprofen* (Motrin*) 600 Mg Tab, 600 MG PO Q6, #20 TAB Prov:TEVIN BRAY MD 11/06/18 Reported Medications Famotidine* (Famotidine*) 40 Mg/5 Ml Oral.susp, 40 MG PO HS, #150 ML 01/04/19 Pantoprazole* (Pantoprazole*) 40 Mg Tablet.dr, 40 MG PO DAILY, TAB 01/04/19 Simethicone (GAS RELIEF) 125 Mg Capsule, 125 MG PO, CAP 01/04/19 Methylnaltrexone Scio (Relistor) 150 Mg Tablet, 150 MG PO, TAB 01/04/19 Ferrous Sulfate* (Ferrous Sulfate*) 325 Mg Tabec, 325 MG PO DAILY, TAB 01/04/19 Escitalopram Oxalate* (Escitalopram Oxalate*) 20 Mg Tablet, 20 MG PO DAILY, #30 TAB 01/04/19 Sertraline Hcl* (Sertraline Hcl*) 50 Mg Tablet, 50 MG PO DAILY, #30 TAB 01/04/19 Mirtazapine* (Mirtazapine*) 15 Mg Tablet, 15 MG PO HS, TAB 01/04/19 Isosorbide Mononitrate* (Isosorbide Mononitrate*) 30 Mg Tab.er.24h, 30 MG PO DAILY, TAB 09/24/18 Eplerenone (Inspra) 25 Mg Tablet, 25 MG PO QHS, TAB 09/01/18 Gabapentin* (Gabapentin*) 300 Mg Capsule, 600 MG PO QHS, #180 CAP 09/01/18 Gabapentin* (Gabapentin*) 300 Mg Capsule, 300 MG PO QAM, #60 CAP 09/01/18 Empagliflozin (Jardiance) 10 Mg Tablet, 10 MG PO DAILY, TAB 09/01/18 Metformin Hcl* (Metformin Hcl*) 1,000 Mg Tablet, 1000 MG PO WITH BREAKFAST DINNE, #60 TAB 09/01/18 Sennosides* (Senna Lax*) 8.6 Mg Tablet, 1 TAB PO BID, TAB 09/01/18 Pantoprazole* (Pantoprazole*) 40 Mg Tablet.dr, 40 MG PO AC BREAKFAST, TAB 09/01/18 Lovastatin* (Lovastatin*) 10 Mg Tablet, 10 MG PO HS, TAB 09/01/18 Lisinopril* (Lisinopril*) 40 Mg Tablet, 40 MG PO BID, #30 TAB 09/01/18 Glipizide* (Glipizide*) 10 Mg Tablet, 10 MG PO AC BREAKFAST DINNER, TAB 09/01/18 Finasteride* (Finasteride*) 5 Mg Tablet, 5 MG PO DAILY, TAB 09/01/18 Docusate Sodium* (Colace*) 100 Mg Capsule, 100 MG PO BID, #60 CAP 09/01/18 Amlodipine Besylate* (Amlodipine Besylate*) 10 Mg Tablet, 10 MG PO DAILY, #30 TAB 09/01/18 Alfuzosin Hcl* (Alfuzosin Hcl*) 10 Mg Tab.er.24h, 10 MG PO QHS, #30 TAB.SA 09/01/18 Meds reviewed: Yes Allergies Coded Allergies: allopurinol (Verified Allergy, Unknown, ITCHING, NAUSEA, 01/04/19) Allergies Reviewed: Yes Labs/Studies Labs Reviewed: Reviewed by anesthesiologist test: N/A Pre-procedure Exam Airway: Adequate mouth opening, Adequate thyromental dist Mallampati: Mallampati II Teeth: Normal Lung: Normal Heart: Normal ASA Physical Status ASA physical status: 2 Emergency: None Planned Anesthetic General/MAC: MAC Planned Pain Management Parenteral pain med Pre-operative Attestations Prior to commencing anesthesia and surgery, the patient was re-evaluated, there was verification of: *The patient's identity *The results of appropriate recent lab work and preoperative vital signs *The above evaluation not changing prior to induction *Anesthetic plan, risk benefits, alternative and complications discussed with patient/family; questions answered; patient/family understands, accepts and wishes to proceed. Clifford Crook M.D. Jan 04, 2019 09:48
[2019-01-04] MEDS ORDERED: LIDOCAINE 100 MG SYRINGE ONE (09:50)
[2019-01-04] MEDS ORDERED: PROPOFOL 40 ML ONE (09:50)
--- NOTE | 2019-01-04 10:16 | PAC ---
Date/Time of Note Date/Time of Note DATE: 01/04/19 TIME: 10:15 Post-Anesthesia Notes Post-Anesthesia Note Last documented vital signs hr 74 rr 14 bp 124/75 t 98 Activity: WNL Respiratory function: WNL Cardiovascular function: WNL Mental status: Baseline Pain reasonably controlled: Yes Hydration appropriate: Yes Nausea/Vomiting absent: Yes Clifford Crook M.D. Jan 04, 2019 10:15
== END 2019-01-04 11:47 | disposition home or self-care (01) ==
LOC: GIL 06:48
PROVIDERS: ATTEND Internal Medicine Gastroenterology
DX: Z86.010 Personal history of colon polyps (principal); E11.9 Type 2 diabetes mellitus without complications; I10 Essential (primary) hypertension; E78.5 Hyperlipidemia, unspecified; Z79.84 Long term (current) use of oral hypoglycemic drugs
CPT/HCPCS: 45378; 82962; J2001